=== PATIENT | male | born 1945 | race Caucasian/White ===

== ENCOUNTER → 2017-09-16 14:55 | Outpatient (CLI) | payer MEDICARE, BC, SELFPAY ==
--- NOTE | 2017-09-16 15:05 | CI_ITS ---
Cerebrovascular Exam Indications: 433.10 Occlusion/stenosis of carotid artery without cerebral infarction. IMPRESSIONS 1. The bilateral vertebral arteries are patent with normal antegrade flow. 2. Study suggests less than 20% stenosis involving the right internal carotid artery. 3. Study suggests 20-49% stenosis involving the left internal carotid artery. Carotid duplex study. Complete study and Doppler flow study including spectral analysis, color and fletcher scale imaging. Height: Height: 177.8cm. Height: 70in. Weight: Weight: 127kg. Weight: 279.4lb. Body mass index: BMI: 40.2kg/m^2. Body surface area: BSA: 2.56m^2. Location: Vascular laboratory. Patient status: Outpatient. Tables: Arterial flow: + +--------+--------+ Location V sys V ed + +--------+--------+ Right CCA - proximal 63.6cm/s 14.9cm/s + +--------+--------+ Right CCA - distal 88cm/s 19.6cm/s + +--------+--------+ Right ECA 131cm/s -------- + +--------+--------+ Right ICA - proximal 55cm/s 19.6cm/s + +--------+--------+ Right ICA - mid 73.1cm/s 22.8cm/s + +--------+--------+ Right ICA - distal 62.1cm/s 18.9cm/s + +--------+--------+ Right vertebral 40.1cm/s -------- + +--------+--------+ Left CCA - proximal 105cm/s 18.1cm/s + +--------+--------+ Left CCA - distal 84.1cm/s 18.9cm/s + +--------+--------+ Left ECA 110cm/s -------- + +--------+--------+ Left ICA - proximal 136cm/s 44.8cm/s + +--------+--------+ Left ICA - mid 145cm/s 38.5cm/s + +--------+--------+ Left ICA - distal 85.6cm/s 28.3cm/s + +--------+--------+ Left vertebral 72.3cm/s -------- + +--------+--------+ Velocity ratios: + + + + + + Right, V sys Right, V ed Left, V sys Left, V ed + + + + + + Max ICA/dist CCA 0.83 1.16 1.72 2.37 + + + + + + (Report amended ) Electronically signed by: Ashu Brewer [id number]
== END ==
PROVIDERS: PCP Family Medicine; Visit Provider Family Medicine
DX: I65.23 Occlusion and stenosis of bilateral carotid arteries (principal); R41.3 Other amnesia
CPT/HCPCS: 93880

== ENCOUNTER 2017-09-20 03:34 | Emergency (ER) | payer MEDICARE, BC, SELFPAY ==
[2017-09-20 03:37] VITALS: BP 103/64; PULSE 72; RESP 18; TEMP 36.9; O2SAT 95; BMI 40.1
--- NOTE | 2017-09-20 04:00 | XR_ITS ---
XR knee LT 3V HISTORY: Left knee pain ITS.REASON: pain ORDERING PHYSICIAN: Jim Monet MD PATIENT AGE: 71 years COMPARISON: None FINDINGS: There are moderate to severe osteoarthritic changes of the medial or and moderate osteoarthritis of the lateral compartment and patellofemoral joint. There is 4 mm lateral translation of the proximal tibia. No fracture or dislocation. No lytic or blastic change. There is some calcification in the suprapatellar region and the soft tissues nonspecific with possible suprapatellar effusion. IMPRESSION: Moderate to severe osteoarthritis with possible knee joint effusion
--- NOTE | 2017-09-20 04:02 | HMH.EDEXTP ---
ED Disposition Clinical Impression: Restless leg syndrome Left knee pain Qualifiers: Chronicity: chronic Qualified Code(s): M25.562 - Pain in left knee Disposition: Home, Self-Care Condition on Discharge: Good Instructions: DI for Knee Pain, DI for Restless Legs Syndrome Additional Instructions: Please continue to keep the left knee immobilized, and follow-up with the orthopedic surgeon (Dr. Redman) at your earliest convenience for additional outpatient workup. Referrals: Wayne Redman MD [Staff Physician] - Time of Disposition: 04:58 - Critical Care Critical Care Time: No Attestation: On 09/20/17, the high probability of a clinically significant, sudden or life threatening deterioration of the following system(s) required my full and direct attention, intervention and personal management. The time I documented below is in addition to time spent performing reported procedures but includes the following listed in this critical care notation. Medical Decision Making - Medical Records Medical records reviewed: Yes: I reviewed the patient's medical records. Vital Signs: 09/20/17 03:37 09/20/17 05:21 Temperature 98.5 F 98.7 F Temperature Source Oral Oral Pulse Rate 78 Pulse Rate [Left Radial] 72 Respiratory Rate 18 16 Blood Pressure 118/72 Blood Pressure [Right Arm] 103/64 Blood Pressure Mean [Right Arm] 77 Blood Pressure Source Manual Cuff/ Palpation Blood Pressure Source [Right Arm] Automatic Cuff Blood Pressure Position Supine Blood Pressure Position [Right Arm] Supine 02 Sat by Pulse Oximetry 95 Oxygen Delivery Method Room Air Room Air Orders (Tests/Meds): ED MEDICATIONS Discontinued Medications Generic Name Dose Route Start Last Admin Trade Name Freq PRN Reason Stop Dose Admin Hydromorphone HCl 1 mg 09/20/17 04:02 Dilaudid 2mg/Ml Syringe IM 09/20/17 04:03 ONCE ONE Lorazepam 1 mg 09/20/17 04:34 09/20/17 04:41 Ativan 2mg/Ml Vial IV 09/20/17 04:35 1 mg ONCE ONE Administration Morphine Sulfate 8 mg 09/20/17 04:09 09/20/17 04:14 Morphine 5mg/Ml Syringe IV 09/20/17 04:10 8 mg ONCE ONE Administration Ondansetron HCl 4 mg 09/20/17 04:02 Zofran 4mg/2ml Vial IM 09/20/17 04:03 ONCE ONE Ondansetron HCl 4 mg 09/20/17 04:12 09/20/17 04:14 Zofran 4mg/2ml Vial IV 09/20/17 04:13 4 mg ONCE ONE Administration Oxycodone/Acetaminophen 1 each 09/20/17 04:59 09/20/17 05:11 Percocet 10mg/325mg Tablet PO 09/20/17 05:00 1 each ONCE ONE Administration - Radiology Data #1 Image(s): Knee (left) Image Reviewed: Yes I reviewed the patient's radiology results, Yes I have reviewed radiologist's interpretation There are moderate to severe osteoarthritic changes of the medial or and moderate osteoarthritis of the lateral compartment and patellofemoral joint. There is 4 mm lateral translation of the proximal tibia. No fracture or dislocation. No lytic or blastic change. There is some calcification in the suprapatellar region and the soft tissues nonspecific with possible suprapatellar effusion. IMPRESSION: Moderate to severe osteoarthritis with possible knee joint effusion Dictated By: Ashu Brewer Signed By: <Electronically signed by Ashu Brewer in OV> 09/20/17 0521 - Samy Inquiry Pt receiving controlled substance: No - Reevaluation(s) Time: 04:45 Reevaluation #1: patient needs to follow up with policy specialist, given the small knee effusion. Extremity Problem HPI - General Chief complaint: Extremity Injury, Lower Stated complaint: left knee pain Mode of Arrival: EMS Limitations: No Limitations Description of Symptoms (Recalled from ER Triage Doc. by RN): left knee pain exacerbated by restless leg - History of Present Illness MD Complaint: extremity pain (chronic bilateral knee pain, worse on the left) Onset (ago): week(s) (2) Consistency: intermittent Location:
--- NOTE | 2017-09-20 04:16 | PC.NURSE ---
pt writhing and jerking intermittently all over the bed despite the knee pain report, it distractable and able to hold still when need.
[2017-09-20 05:21] VITALS: BP 118/72; PULSE 78; RESP 16; TEMP 37.1; O2SAT 97
== END 2017-09-20 05:25 | disposition home or self-care (01) ==
PROVIDERS: Emergency Provider Emergency Medicine
DX: G25.81 Restless legs syndrome (principal); M25.562 Pain in left knee; Z79.899 Other long term (current) drug therapy; E78.5 Hyperlipidemia, unspecified; Z96.651 Presence of right artificial knee joint; Z87.891 Personal history of nicotine dependence
CPT/HCPCS: 73562; 96374; 96375; 99281; 99291; J2405

== ENCOUNTER → 2017-09-27 12:16 | Outpatient (CLI) | payer MEDICARE, BC, SELFPAY ==
--- NOTE | 2017-09-27 12:22 | XR_ITS ---
XR ankle LT min 3V HISTORY: Left ankle pain ORDERING PHYSICIAN: Darren Dowd MD PATIENT AGE: 71 years COMPARISON: None FINDINGS: No fracture or dislocation. No lytic or blastic change. There is normal mineralization.. The joint spaces are well-preserved. No significant degenerative/arthritic changes. No erosive changes evident. Minimal hypertrophic changes are present at the distal aspect of the medial malleolus. IMPRESSION: No acute finding. Minimal degenerative change
--- NOTE | 2017-09-27 12:23 | CT_ITS ---
EXAM: CT LUNG LOW DOSE WO CONTRAST COMPARISON: None HISTORY: 71-year-old male with greater than 30 pack-year smoking history asymptomatic ORDERING PHYSICIAN: Darren Dowd MD PATIENT AGE: 71 years TECHNIQUE: The exam was performed on a GE Light Speed [address] scanner using 2.94 mGy CTDI. A low dose helical CT CHEST was performed on a multi-detector scanner The LDCT was performed in a facility that meets the criteria for the screening program. Data regarding this exam was submitted to ACR which is an approved registry. The order for this exam indicates that it came as a result of a lung cancer screening counseling shard decision-making visit that included all the elements required of such a visit including smoking cessation. The radiologist interpreting this exam meets the [facility] criteria for the LDCT lung cancer screening program. The exam is reported using the Lung-RADS classification scale and reported to the ACR registry. NOTE: This study was performed for the specific purposes of lung cancer screening and is not an alternative to diagnostic chest CT. RADIATION DOSE: CTDI vol(CT dose Index-volume) = 2.94mG DLP (Dose Length Product) = 102.83 mGcm FINDINGS: Study is somewhat limited due to patient's body habitus and low-dose technique. No suspicious nodules apparent. Incidental note is made of coronary artery calcification. No obvious mediastinal or hilar mass. Calcified node is present in the right hilum. IMPRESSION: 1. Lung RADS Category: 2, benign 2. Other findings: Coronary artery calcification RECOMMENDATIONS: Study is very limited secondary to patient body habitus and the low dose technique. If the patient develops symptoms then, a regular CT scan with regular technique would be indicated.
== END ==
PROVIDERS: PCP Family Medicine; Visit Provider Family Medicine
DX: M25.571 Pain in right ankle and joints of right foot (principal); Z87.891 Personal history of nicotine dependence; Z12.2 Encounter for screening for malignant neoplasm of respiratory organs
CPT/HCPCS: 73610

== ENCOUNTER → 2017-12-23 17:28 | Outpatient (REF) | payer MEDICARE, BC, SELFPAY | LOC: LAB 17:28 | PROVIDERS: Visit Provider Podiatrist | DX: B35.1 Tinea unguium (principal); M25.571 Pain in right ankle and joints of right foot; M25.572 Pain in left ankle and joints of left foot | CPT/HCPCS: 87102; 87206; 87220 ==

== ENCOUNTER → 2017-12-31 15:37 | Outpatient (CLI) | payer MEDICARE, BC, SELFPAY ==
[2017-12-31 15:58] LABS: Basophils % 0.4 % (0.1-2.0); Eosinophils # 0.2 K/mm3 (0.0-0.4); Eosinophils % 3.3 % (0.1-12.0); Hematocrit 42.4 % (42.0-52.0); Hemoglobin 14.8 g/dL (14.1-18.0); Lymphocytes % 27.3 K/mm3 (10-50); Mean Corpuscular HGB Conc 34.9 g/dL (31.8-35.4); Mean Corpuscular Hemoglobin 32.5 pg (27.0-31.2); Mean Platelet Volume 8.3 fl (7.4-10.4); Monocytes # 0.3 K/mm3 (0.1-1.0); Monocytes % 4.5 % (1.7-9.3); Neutrophils # 4.7 K/mm3 (1.8-7.8); Neutrophils % 64.5 % (37.0-80.0); Platelet Count 130 K/mm3 (142-424); Red Blood Count 4.55 M/mm3 (4.60-6.20); White Blood Count 7.3 K/mm3 (4.8-10.8)
[2017-12-31 17:28] LABS: Anion Gap 15.7 mEq/L (5-15); Blood Urea Nitrogen 25 mg/dL (7-18); Carbon Dioxide 26 mmol/L (21.0-32.0); Chloride 102 mmol/L (98-107); Creatinine,Serum 1.07 mg/dL (0.70-1.30); Estimated Glomerular Filt Rate 68 ml/min (>60); GFR (African American) 82 ML/MIN (>60); Glucose 159 mg/dL (74-106); Sodium 139 mmol/L (136-145)
[2017-12-31 17:31] LABS: Potassium 4.7 mmoL/L (3.5-5.1)
== END ==
PROVIDERS: Visit Provider Orthopaedic Surgery
DX: Z01.818 Encounter for other preprocedural examination (principal); G56.01 Carpal tunnel syndrome, right upper limb
CPT/HCPCS: 36415; 80048; 85025; 93005

== ENCOUNTER → 2018-02-03 10:51 | Outpatient (POV) | payer MEDICARE, BC, SELFPAY ==
[2018-02-03 11:03] VITALS: BP 155/65; PULSE 63; RESP 18; TEMP 36.4; O2SAT 96
--- NOTE | 2018-02-03 15:43 | HMH.PMCON ---
Assessment and Plan (1) CRPS (complex regional pain syndrome type I) Current visit: Yes Status: Chronic Category: Medical Code(s): G90.50 - Complex regional pain syndrome I, unspecified (2) Neuropathy Current visit: Yes Status: Chronic Category: Medical Code(s): G62.9 - Polyneuropathy, unspecified (3) Low back pain Current visit: Yes Status: Chronic Qualifiers: Chronicity: chronic Back pain laterality: midline Sciatica presence: with sciatica Sciatica laterality: bilateral sciatica Qualified Code(s): M54.41 - Lumbago with sciatica, right side; M54.42 - Lumbago with sciatica, left side; G89.29 - Other chronic pain Category: Medical Code(s): M54.5 - Low back pain - Assessment and plan all Dx Assessment and Plan for all problems:: Patient and I discussed neuro stimulation. I believe he would be a good candidate for DRG therapy along with potentially a burst lead placed for back pain. Patient is not a narcotic candidate given his respiratory status. Patient is uninterested in taking long-term narcotics. Patient's tried and failed physical therapy, anti-inflammatories, medications, injections. Patient and I discussed realistic goal setting with therapy. Patient and I discussed the trial and implantation process. Patient is interested in pursuing this. We will send the patient for psychological evaluation and then move forward with a trial. [facility] will get in touch with the patient to answer any questions the patient may have. This note was dictated using voice recognition software and may contain errors or omissions HPI - Data of Consult Consult date: 02/03/18 Requesting Physician: Carissa Robb APRN Primary Care Provider: Darren Dowd MD Family Provider: Referral Provider, - Consult Narrative Reason for consult: Left foot and low back pain History of present illness: Mr. Juilo is a 72 year old male who presents today for consultation in regards to his left foot and low back pain. Patient has had left foot surgery and has had pain ever since. He states that it is constant pain. Patient rates his pain a 5 out of 10 today. Patient also has low back pain. Is interested in interventional means of controlling his pain. Patient's tried and failed physical therapy. Patient has been seen by neurosurgery in the past was deemed a potential candidate for back surgery however he is not in a place that he would like to pursue this. Patient does have respiratory issues that require him to wear his CPAP. Patient is not a candidate for narcotic medications due to this. Patient also uninterested in taking long-term narcotic medications. Patient would like to discuss DRG stimulation for his left foot pain and potentially burst stimulation for his low back pain. Patient would like to return to work. Patient has tried and failed anti-inflammatories, medications. Patient also has a diagnosis of neuropathy. CC: Carissa Robb APRN [facility] History I have reviewed the patient's past medical history: Yes Medical History: Reports:: Hyperlipidemia Denies:: Cancer, Diabetes Mellitus Type 1, Diabetes Mellitus Type 2, MRSA, Seizures Other Medical History: Reports: Arthritis, Other. Denies: Blood Transfusion Reaction Laterality Cases: Right: Carpal Tunnel Release Other Surgeries: Yes: Other Amputation: Yes (left hand) Fractures: No - *Social History Educational Level: Completed High School Smoking Status: Former smoker Tobacco Type: cigarettes Alcohol Intake: never Alcohol Intake Frequency:: other Occupational Status: other Housing: house Household Members: spouse - Psychiatric History Expresses thoughts of harming self/others: None Suicide Plan Description: No Plan *Family Hx:: Diabetes, Hyperlipidemia, Hypertension Review of Systems - Review of Systems ROS General: no recent weight change, no fever, no sleep disturbances Respiratory: no cough, no shortness of a
--- NOTE | 2018-02-03 15:47 | P.CONS_ITS ---
Assessment and Plan (1) CRPS (complex regional pain syndrome type I) Current visit: Yes Status: Chronic Category: Medical Code(s): G90.50 - Complex regional pain syndrome I, unspecified (2) Neuropathy Current visit: Yes Status: Chronic Category: Medical Code(s): G62.9 - Polyneuropathy, unspecified (3) Low back pain Current visit: Yes Status: Chronic Qualifiers: Chronicity: chronic Back pain laterality: midline Sciatica presence: with sciatica Sciatica laterality: bilateral sciatica Qualified Code(s): M54.41 - Lumbago with sciatica, right side; M54.42 - Lumbago with sciatica, left side; G89.29 - Other chronic pain Category: Medical Code(s): M54.5 - Low back pain - Assessment and plan all Dx Assessment and Plan for all problems:: Patient and I discussed neuro stimulation. I believe he would be a good candidate for DRG therapy along with potentially a burst lead placed for back pain. Patient is not a narcotic candidate given his respiratory status. Patient is uninterested in taking long-term narcotics. Patient's tried and failed physical therapy, anti-inflammatories, medications, injections. Patient and I discussed realistic goal setting with therapy. Patient and I discussed the trial and implantation process. Patient is interested in pursuing this. We will send the patient for psychological evaluation and then move forward with a trial. [facility] will get in touch with the patient to answer any questions the patient may have. This note was dictated using voice recognition software and may contain errors or omissions HPI - Data of Consult Consult date: 02/03/18 Requesting Physician: Carissa Robb APRN Primary Care Provider: Darren Dowd MD Family Provider: Referral Provider, - Consult Narrative Reason for consult: Left foot and low back pain History of present illness: Mr. Julio is a 72 year old male who presents today for consultation in regards to his left foot and low back pain. Patient has had left foot surgery and has had pain ever since. He states that it is constant pain. Patient rates his pain a 5 out of 10 today. Patient also has low back pain. Is interested in interventional means of controlling his pain. Patient's tried and failed physical therapy. Patient has been seen by neurosurgery in the past was deemed a potential candidate for back surgery however he is not in a place that he would like to pursue this. Patient does have respiratory issues that require him to wear his CPAP. Patient is not a candidate for narcotic medications due to this. Patient also uninterested in taking long-term narcotic medications. Patient would like to discuss DRG stimulation for his left foot pain and potentially burst stimulation for his low back pain. Patient would like to return to work. Patient has tried and failed anti- inflammatories, medications. Patient also has a diagnosis of neuropathy. CC: Carissa Robb APRN [facility] History I have reviewed the patient's past medical history: Yes Medical History: Reports:: Hyperlipidemia Denies:: Cancer, Diabetes Mellitus Type 1, Diabetes Mellitus Type 2, MRSA, Seizures Other Medical History: Reports: Arthritis, Other. Denies: Blood Transfusion Reaction Laterality Cases: Right: Carpal Tunnel Release Other Surgeries: Yes: Other Amputation: Yes (left hand) Fractures: No - *Social History Educational Level: Completed High School Smoking Status: Former smoker Tobacco Type: cigarettes Alcohol Intake: never Alcohol Intake Frequency:: other Occupational Status: other Housing: hous
== END ==
PROVIDERS: PCP Family Medicine; Visit Provider Clinical Nurse Specialist Family Health
DX: G62.9 Polyneuropathy, unspecified (principal); G89.29 Other chronic pain
CPT/HCPCS: 99202

== ENCOUNTER → 2018-03-17 14:32 | Outpatient (POV) | payer MEDICARE, BC, SELFPAY ==
[2018-03-17 14:47] VITALS: BP 110/70; PULSE 68; RESP 18; O2SAT 98; BMI 41.5
--- NOTE | 2018-03-17 15:53 | HMH.PAINSOAP ---
[facility] Pain Management SOAP Note Subjective:: patient is a pleasant 72-year-old white male who presents today for follow-up after neurostimulator trial. Patient is doing extremely well he states during his trial he had up to 90% pain relief. Patient states he was much more functional. Patient got coverage all the way to his feet. Patient had to [place] burst stimulator leads placed at T7-T8-T9. The sites where the leads were placed have no sign symptoms of infection. Patient states that pain during his stimulator trial was 2 out of 10. ROS General: no recent weight change, no fever, no sleep disturbances Respiratory: no cough, no shortness of air, no recurring pulmonary infections Cardiovascular/Peripheral Vascular: No chest pain, No palpitations, no edema, no shortness of breath. Gastrointestinal: no incontinence, normal bowel movements reported Genitourinary: no incontinence Musculoskeletal: Bilateral leg pain Psychiatric: normal mood/ affect Neurological: [denies weakness in extremities], [denies balance issues] Objective:: Physical Exam General: Alert and oriented x3, no acute distress, pleasant and cooperative, [on room air] Lungs: Resps E/U, Symmetrical chest expansion, Eyes: PERRL Musculoskeletal: Flexion and extension of lumbar spine somewhat guarded secondary to pain, deep tendon reflexes normal, strength in upper and lower extremities [5/5], slightly antalgic gait noted Neurological: speech clear, shuffle board operator equal, no gross sensory deficits Assessment:: Degenerative disc disease lumbar spine with lumbar radiculopathy symptoms Plan:: We will plan a permanent neurostimulator implant for this patient. Patient did well with his trial. This trial was a success. Psychological evaluation will be reviewed. Patient is not on any anticoagulation therapy. This note was dictated using voice recognition software and may contain errors or omissions
--- NOTE | 2018-03-17 15:57 | P.CONS_ITS ---
[facility] Pain Management SOAP Note Subjective:: patient is a pleasant 72-year-old white male who presents today for follow-up after neurostimulator trial. Patient is doing extremely well he states during his trial he had up to 90% pain relief. Patient states he was much more functional. Patient got coverage all the way to his feet. Patient had to [place] burst stimulator leads placed at T7-T8-T9. The sites where the leads were placed have no sign symptoms of infection. Patient states that pain during his stimulator trial was 2 out of 10. ROS General: no recent weight change, no fever, no sleep disturbances Respiratory: no cough, no shortness of air, no recurring pulmonary infections Cardiovascular/Peripheral Vascular: No chest pain, No palpitations, no edema, no shortness of breath. Gastrointestinal: no incontinence, normal bowel movements reported Genitourinary: no incontinence Musculoskeletal: Bilateral leg pain Psychiatric: normal mood/ affect Neurological: [denies weakness in extremities], [denies balance issues] Objective:: Physical Exam General: Alert and oriented x3, no acute distress, pleasant and cooperative, [ on room air] Lungs: Resps E/U, Symmetrical chest expansion, Eyes: PERRL Musculoskeletal: Flexion and extension of lumbar spine somewhat guarded secondary to pain, deep tendon reflexes normal, strength in upper and lower extremities [5/5], slightly antalgic gait noted Neurological: speech clear, data analytics architect equal, no gross sensory deficits Assessment:: Degenerative disc disease lumbar spine with lumbar radiculopathy symptoms Plan:: We will plan a permanent neurostimulator implant for this patient. Patient did well with his trial. This trial was a success. Psychological evaluation will be reviewed. Patient is not on any anticoagulation therapy. This note was dictated using voice recognition software and may contain errors or omissions
== END ==
PROVIDERS: PCP Family Medicine; Visit Provider Clinical Nurse Specialist Family Health
DX: M51.16 Intervertebral disc disorders with radiculopathy, lumbar region (principal)
CPT/HCPCS: 99212

== ENCOUNTER → 2018-05-13 09:59 | Outpatient (POV) | payer MEDICARE, BC, SELFPAY ==
[2018-05-13 10:33] VITALS: BP 179/77; PULSE 61; RESP 18; O2SAT 98; BMI 42.2
--- NOTE | 2018-05-13 10:56 | HMH.PAINSOAP ---
[facility] Pain Management SOAP Note Subjective:: Patient is a pleasant 72-year-old white male who we are treating for low back pain with lumbar radiculopathy symptoms of bilateral foot pain. Patient has failed all previous conservative therapy including injections, physical therapy, medications. Patient is not a surgical candidate. Patient is following up after implantation of spinal cord stimulator. Patient is doing very well he rates his pain a 1 out of 10 he states he has 90% improvement in his symptoms. Patient stitches removed site clean dry healing no sign symptoms of infection. ROS General: no recent weight change, no fever, no sleep disturbances Respiratory: no cough, no shortness of air, no recurring pulmonary infections Cardiovascular/Peripheral Vascular: No chest pain, No palpitations, no edema, no shortness of breath. Gastrointestinal: no incontinence, normal bowel movements reported Genitourinary: no incontinence Musculoskeletal: Back pain, leg pain Psychiatric: normal mood/ affect Neurological: [denies weakness in extremities], [denies balance issues] Objective:: Physical Exam General: Alert and oriented x3, no acute distress, pleasant and cooperative, [on room air] Lungs: Resps E/U, Symmetrical chest expansion, Eyes: PERRL Musculoskeletal: Flexion and extension of lumbar spine somewhat guarded secondary to pain, deep tendon reflexes normal, strength in upper and lower extremities [5/5], slightly antalgic gait noted Neurological: speech clear, household assistant equal, no gross sensory deficits Assessment:: Degenerative disc disease lumbar spine radiculopathy symptoms of bilateral foot pain with CRPS Plan:: We will follow-up with the patient in 3 weeks just to reassess his symptoms at that time and after that we will follow-up with him in on an as-needed basis. Patient's been instructed to call the office if he has any issues prior to her next appointment. This note was dictated using voice recognition software and may contain errors or omissions
--- NOTE | 2018-05-13 10:59 | P.CONS_ITS ---
[facility] Pain Management SOAP Note Subjective:: Patient is a pleasant 72-year-old white male who we are treating for low back pain with lumbar radiculopathy symptoms of bilateral foot pain. Patient has failed all previous conservative therapy including injections, physical therapy, medications. Patient is not a surgical candidate. Patient is following up after implantation of spinal cord stimulator. Patient is doing very well he rates his pain a 1 out of 10 he states he has 90% improvement in his symptoms. Patient stitches removed site clean dry healing no sign symptoms of infection. ROS General: no recent weight change, no fever, no sleep disturbances Respiratory: no cough, no shortness of air, no recurring pulmonary infections Cardiovascular/Peripheral Vascular: No chest pain, No palpitations, no edema, no shortness of breath. Gastrointestinal: no incontinence, normal bowel movements reported Genitourinary: no incontinence Musculoskeletal: Back pain, leg pain Psychiatric: normal mood/ affect Neurological: [denies weakness in extremities], [denies balance issues] Objective:: Physical Exam General: Alert and oriented x3, no acute distress, pleasant and cooperative, [on room air] Lungs: Resps E/U, Symmetrical chest expansion, Eyes: PERRL Musculoskeletal: Flexion and extension of lumbar spine somewhat guarded secondary to pain, deep tendon reflexes normal, strength in upper and lower extremities [5/5], slightly antalgic gait noted Neurological: speech clear, container washer machine equal, no gross sensory deficits Assessment:: Degenerative disc disease lumbar spine radiculopathy symptoms of bilateral foot pain with CRPS Plan:: We will follow-up with the patient in 3 weeks just to reassess his symptoms at that time and after that we will follow-up with him in on an as-needed basis. Patient's been instructed to call the office if he has any issues prior to her next appointment. This note was dictated using voice recognition software and may contain errors or omissions
== END ==
PROVIDERS: PCP Family Medicine; Visit Provider Clinical Nurse Specialist Family Health
DX: M51.16 Intervertebral disc disorders with radiculopathy, lumbar region (principal); G90.523 Complex regional pain syndrome I of lower limb, bilateral
CPT/HCPCS: 99213

== ENCOUNTER 2018-05-23 19:05 | Inpatient (IN) ==
[2018-05-23 19:44] LABS: Basophils % 0.1 % (0.1-2.0); Eosinophils % 0.3 % (0.1-12.0); Hematocrit 35.6 % (42.0-52.0); Lymphocytes # 0.7 K/mm3 (0.7-4.5); Lymphocytes % 6.7 K/mm3 (10-50); Mean Corpuscular HGB Conc 33.7 g/dL (31.8-35.4); Mean Corpuscular Hemoglobin 32.7 pg (27.0-31.2); Mean Corpuscular Volume 97.1 fl (80-94); Mean Platelet Volume 8.2 fl (7.4-10.4); Monocytes # 0.5 K/mm3 (0.1-1.0); Monocytes % 4.5 % (1.7-9.3); Neutrophils # 9.3 K/mm3 (1.8-7.8); Neutrophils % 88.3 % (37.0-80.0); Platelet Count 102 K/mm3 (142-424); Red Blood Count 3.66 M/mm3 (4.60-6.20); Red Cell Distribution Width 13.2 % (11.5-17.5); White Blood Count 10.6 K/mm3 (4.8-10.8)
[2018-05-23 19:55] LABS: Lymphocytes % 5 % (10-50); Monocytes % 4 % (2-9); Neutrophils % 85 % (42-76); RBC Morphology Normal; Rouleaux 1+; Total Cells Counted 100; Toxic Granulation 1+
[2018-05-23 19:57] LABS: Albumin Level 3.3 gm/dL (3.4-5.0); Albumin/Globulin Ratio 0.9 (1.1-1.8); Anion Gap 11.3 mEq/L (5-15); Bilirubin,Total 0.7 mg/dL (0.2-1.0); Calcium 8.3 mg/dL (8.5-10.1); Globulin 3.8 gm/dl (1.3-3.2); Potassium 4.3 mmoL/L (3.5-5.1); Total Protein,Serum 7.1 gm/dL (6.4-8.2)
--- NOTE | 2018-05-23 20:28 | Emergency Department Note ---
ED Disposition Clinical Impression: Acute delirium, Febrile illness, acute Disposition: Admitted As Inpatient Condition on Discharge: Fair Referrals: Darren Dowd MD [Primary Care Provider] - - Critical Care Critical Care Time: No Attestation: On 05/23/18, the high probability of a clinically significant, sudden or life threatening deterioration of the following system(s) required my full and direct attention, intervention and personal management. The time I documented below is in addition to time spent performing reported procedures but includes the following listed in this critical care notation. Medical Decision Making - Medical Records Medical records reviewed: Yes: I reviewed the patient's medical records. - Samy Inquiry Pt receiving controlled substance: No Vital Signs: 05/23/18 19:09 05/23/18 20:17 05/23/18 21:30 Temperature 98.7 F 102.5 F H Temperature Source Oral Rectal Pulse Rate [Right Brachial] 74 90 Respiratory Rate 18 18 Blood Pressure [Right Arm] 132/60 115/56 L Blood Pressure Mean [Right Arm] 84 75 Blood Pressure Source [Right Arm] Automatic Cuff Automatic Cuff Blood Pressure Position [Right Arm] Sitting Supine 02 Sat by Pulse Oximetry 94 L 95 Oxygen Delivery Method Room Air Room Air 05/23/18 22:00 05/23/18 22:30 Temperature Temperature Source Pulse Rate [Right Brachial] 68 66 Respiratory Rate 18 18 Blood Pressure [Right Arm] 116/65 117/63 Blood Pressure Mean [Right Arm] 82 81 Blood Pressure Source [Right Arm] Automatic Cuff Automatic Cuff Blood Pressure Position [Right Arm] Supine Supine 02 Sat by Pulse Oximetry 94 L 94 L Oxygen Delivery Method Room Air Room Air - Lab Data Lab results reviewed: Yes: I reviewed the patient's lab results. Lab Results 05/23/18 19:25: WBC 10.6, RBC 3.66 L, Hgb 12.0 L, Hct 35.6 L, MCV 97.1 H, MCH 32.7 H, MCHC 33.7, RDW 13.2, Plt Count 102 L, MPV 8.2, Neut % (Auto) 88.3 H, Lymph % (Auto) 6.7 L, [place] % (Auto) 4.5, Eos % (Auto) 0.3, Baso % (Auto) 0.1, Neut # (Auto) 9.3 H, Lymph # (Auto) 0.7, [place] # (Auto) 0.5, Eos # (Auto) 0.0, Baso # (Auto) 0.0, Total Counted 100, Neutrophils % (Manual) 85 H, Band Ne utrophils % 6.0, Lymphocytes % (Manual) 5 L, Monocytes % (Manual) 4, Toxic Granulation 1+, Platelet Estimate Slight decrease, RBC Morphology Normal, Rouleaux 1+ 05/23/18 19:25: Sodium 131 L, Potassium 4.3, Chloride 98, Carbon Dioxide 26, Anion Gap 11.3, BUN 20 H, Creatinine 1.29, Estimated Creat Clear 88, Estimated GFR 55 L, Est GFR ( Amer) 66, Glucose 135 H, Calcium 8.3 L, Total Bilirubin 0.7, AST 19, ALT 28, Alkaline Phosphatase 108, Total Protein 7.1, Albumin 3.3 L, Globulin 3.8 H, Albumin/Globulin Ratio 0.9 L 05/23/18 19:25: Lactate 1.4 05/23/18 19:25: Troponin I < 0.02 05/23/18 19:25: ESR 48 H 05/23/18 19:25: C-Reactive Protein 14.6 H 05/23/18 20:33: Urine Color Yellow, Urine Appearance Clear, Urine pH 5.5, Ur Specific [place] 1.025, Urine Protein Trace, Urine Glucose (UA) Negative, Urine Ketones Negative, Urine Blood Trace-l, Urine Nitrate Negative, Urine Bilirubin Negative, Urine Urobilinogen 0.2, Ur Leukocyte Esterase Negative, Urine RBC 3-5, Urine WBC 3-5, Amorphous Sediment Trace Result diagrams: 05/23/18 19:25 05/23/18 19:25 Orders (Tests/Meds): ED MEDICATIONS Generic Name Dose Route Start Last Admin Trade Name Freq PRN Reason Stop Dose Admin Ceftriaxone Sodium 1 gm/ 50 mls @ 100 mls/hr 05/23/18 22:45 Sodium Chloride IV 06/06/18 22:44 Q24H MAGDI Protocol Vancomycin HCl 2,500 mg/ 500 mls @ 166.667 mls/hr 05/23/18 22:45 Sodium Chloride IV 06/06/18 22:44 Q24H MAGDI Discontinued Medications Generic Name Dose Route Start Last Admin Trade Name Freq PRN Reason Stop Dose Admin Acetaminophen 1,000 mg 05/23/18 20:17 05/23/18 20:21 Tylenol 500mg Tablet PO 05/23/18 20:18 1,000 mg ONCE ONE Administration Iopamidol 75 ml 05/23/18 21:26 05/23/18 21:26 [id number]; 75ml Vial IV 05/23/18 21:27 75 ml ONCE ONE Administration Protocol Sodium Chloride 10 ml 05/23/18 21:26 05/23/18 21:41 Rad-Saline Flush 10ml Syringe IV 05/23/18 21:27 10 ml ONCE ONE Administration ORDERS Category Date Time Status CT abdomen pelvis w con Stat Cat Scan 05/23/18 20:[address] head/brain wo con Stat Cat Scan 05/23/18 19:31 Taken Chest XR AP view [XR chest AP] Stat Exams 05/23/18 19:40 Taken Urinalysis and Microscopic Stat Lab 05/23/18 20:33 Ordered Blood Culture Stat Micro 05/23/18 19:25 Received - Radiology Data #1 Image(s): Chest Image Reviewed: Yes I reviewed the patient's radiology image Preliminary Findings: Abnormal (nonspecific) - CT Data CT Scan: Head, Abdomen, Pelvis Time Received: 22:[address] Reviewed: Yes: I have viewed the radiologist's interpretation Preliminary Findings: Abnormal (see report) - ECG Data Tracing #1 I reviewed this ECG and interpreted as documented below: Normal Sinus Rhythm: Yes Ischemic changes: non-specific ST-T wave changes - Physician Consults Physician Consulted: sound Reason -: Admission Additional Consult: bux Reason -: Pt condition Altered Mental Status HPI - General Chief Complaint: Weakness Stated Complaint: AMS Time Seen by Provider: 05/23/18 20:00 Mode of Arrival: EMS Source of Information: Patient, Relative, EMS, Medical Record Limitations: No Limitations Description of Symptoms (Recalled from ER Triage Doc. by RN): Per EMS report pt family states pt wasn't acting his normal earlier today, states pt family thought pt may have had a fever. Family states pt was seeing things that weren't there. Pt son reports "I was afraid he was going to start falling" Pt had a nerve stimulator placed in his back 3 weeks ago - History of Present Illness HPI narrative: today with confusion and no fall or cough and no rash with hx of recent spinal stimulator about 3 weeks ago - no abd pain MD complaint: altered mental status Onset (ago): day(s) Timing confirmed by: family member Severity: severe Consistency of symptoms: waxing and waning Associated symptoms: difficulty walking - Related Data Home Medications Medication Instructions Recorded Confirmed acetaminophen ER 650 mg 650 mg PO Q4HP PRN 08/15/17 05/23/18 tablet,extended release atorvastatin 10 mg tablet 10 mg PO DAILY 08/15/17 05/23/18 cetirizine 10 mg chewable tablet 1 tab PO DAILY tab 08/15/17 05/23/18 cholecalciferol (vitamin D3) 1,000 1,000 unit PO DAILY 08/15/17 05/23/18 unit capsule gabapentin 300 mg capsule 600 mg PO TID 08/15/17 05/23/18 magnesium 71.5 mg (magnesium 71.5 mg PO DAILY tab 08/15/17 05/23/18 chloride) tablet,delayed release melatonin 5 mg capsule 5 mg PO HS 08/15/17 05/23/18 meloxicam 15 mg tablet 15 mg PO HS 08/15/17 05/23/18 tamsulosin 0.4 mg capsule 0.4 mg PO DAILY 08/15/17 05/23/18 ropinirole 4 mg tablet 4 mg PO BID 30 Days #30 02/24/18 05/23/18 Duloxetine HCl [Cymbalta] 20 mg PO DAILY 04/30/18 05/23/18 Allergies Allergy/AdvReac Type Severity Reaction Status Date / Time No Known Allergies Allergy Verified 03/12/18 09:01 [facility] History I have reviewed the patient's past medical history: Yes Medical History: Reports:: BPH, Hyperlipidemia Denies:: Cancer, Diabetes Mellitus Type 1, Diabetes Mellitus Type 2, MRSA, Seizures Other Medical History: Reports: Arthritis, Other. Denies: Blood Transfusion Reaction Laterality Cases: Right: Carpal Tunnel Release Other Surgeries: Yes: Other Amputation: Yes (left hand) Fractures: No Comment: Reconstruction of his left hand following trauma - Social History Smoking Status: Former smoker Tobacco Type: cigarettes Alcohol Intake: never Alcohol Intake Frequency:: other Occupational Status: other Housing: house Household Members: spouse - Psychiatric History Expresses thoughts of harming self/others: None Suicide Plan Description: No Plan Family Hx:: Diabetes, Hyperlipidemia, Hypertension ROS Obtained: Yes All systems reviewed & no additional complaints - Constitutional Constitutional: Reports fever(s) - Eyes Eyes: Denies change in vision - ENT Ears, Nose, Mouth, and Throat: Denies sore throat - Cardiovascular Cardiovascular: Denies chest pain - Respiratory Respiratory: No cough - Gastrointestinal Gastrointestingal: Denies: abdominal pain, diarrhea, nausea, vomiting - Genitourinary Male Genitourinary: Denies hematuria - Musculoskeletal Musculoskeletal: Denies joint swelling, Denies neck pain - Integumentary/Breasts Skin/Breast: Denies rash - Neurologic Neurologic: Reports as per HPI, Reports confusion, Denies headache(s), Denies numbness, Denies seizure-like activity Physical Exam - General General appearance: alert, in no apparent distress, obese - Head Head exam: normocephalic - Eye Eye exam: Present: PERRL, EOMI. Absent: scleral icterus - ENT ENT exam: Present: mucous membranes dry - Neck Neck exam: Present: trachea midline - Respiratory Respiratory exam: Present: other (rhonchi bilat ). Absent: respiratory distress - Cardiovascular Cardiovascular exam: Present: regular rate, systolic murmur, +S4 - Abdominal Exam Abdominal exam: Present: soft - Extremities Exam Extremities exam: Absent: joint swelling, calf tenderness - Back Exam Back exam: Present: other (reddness at vertical suture line and no tenderness pouch site ) - Neurological Exam Neurological exam: Present: alert, CN II-XII intact, other (no meningeal parmar es ). Absent: oriented X3, motor sensory deficit - Psychiatric Psychiatric exam: Present: normal affect - Skin Skin exam: Absent: rash
[2018-05-23 20:38] LABS: Microscopic, Urine URINE MICROSCOPIC (MICROSCOPIC)
[2018-05-23 20:52] LABS: Appearance,Urine CLEAR (Clear); Bilirubin,Urine Negative (Negative); Blood, Urine TRACE-L (Negative); Color,Urine YELLOW (Yellow); Glucose,Urine (UA) Negative (Negative); Ketones,Urine Negative (Negative); Leukocyte Esterase,Urine Negative (Negative); PH,Urine 5.5 (5.0-8.5); Protein,Urine TRACE (Negative); Specific Gravity, Urine 1.025 (1.005-1.030); Urobilinogen,Urine 0.2 EU/dl (0.2)
[2018-05-23 20:57] LABS: Amorphous Sediment,Urine Trace /lpf
[2018-05-24 06:53] LABS: Basophils % 0.2 % (0.1-2.0); Eosinophils # 0.1 K/mm3 (0.0-0.4); Eosinophils % 0.8 % (0.1-12.0); Hematocrit 34.1 % (42.0-52.0); Hemoglobin 11.4 g/dL (14.1-18.0); Lymphocytes # 0.8 K/mm3 (0.7-4.5); Lymphocytes % 7.2 K/mm3 (10-50); Mean Corpuscular HGB Conc 33.6 g/dL (31.8-35.4); Mean Corpuscular Hemoglobin 32.8 pg (27.0-31.2); Mean Corpuscular Volume 97.6 fl (80-94); Monocytes # 0.5 K/mm3 (0.1-1.0); Monocytes % 4.9 % (1.7-9.3); Neutrophils # 9.5 K/mm3 (1.8-7.8); Neutrophils % 86.9 % (37.0-80.0); Platelet Count 95 K/mm3 (142-424); Red Blood Count 3.49 M/mm3 (4.60-6.20); Red Cell Distribution Width 13.1 % (11.5-17.5)
[2018-05-24 07:00] LABS: Calcium 8.1 mg/dL (8.5-10.1)
[2018-05-24 07:49] LABS: Lymphocytes % 5 % (10-50); Monocytes % 4 % (2-9); Neutrophils % 89 % (42-76); Total Cells Counted 100
--- NOTE | 2018-05-24 10:56 | Pharmacy Consult Notes ---
[facility] Pharmacy VTE Monitoring - Patient Demographics Admission date: 05/23/18 Report Date: 05/24/18 Time: 10:56 Allergies/Adverse Reactions: Patient Allergies No Known Allergies Allergy (Verified 05/23/18 23:16) Height: 1.78 m Weight: 133.98 kg Patient Problems: Current Active Problems Acute delirium (Acute) Febrile illness, acute (Acute) - VTE Risk Labs: VTE Related Lab Results Hgb 11.4 g/dL (14.1-18.0) L 05/24/18 06:20 Hct 34.1 % (42.0-52.0) L 05/24/18 06:20 Plt Count 95 K/mm3 (142-424) L 05/24/18 06:20 BUN 17 mg/dL (7-18) 05/24/18 06:20 Creatinine 1.25 mg/dL (0.70-1.30) 05/24/18 06:20 Estimated Creat Clear 54 mL/min (0-300) 05/24/18 06:20 VTE Score: 3 VTE Risk Level: Low Risk - Prophylaxis VTE Prophylaxis Ordered?: Yes Types of VTE Prophylaxis: TEDS Knee High Location of Applied Device: Bilateral Lower Extremeties
--- NOTE | 2018-05-24 11:03 | History & Physical Report ---
*Admission Date: 05/23/18 *Chief complaint: altered mental status and uncontrolled pain *History of present illness: Patient presented to the ER with uncontrollable pain and was not having any relief from the spinal stimulator that was put on by Dr. Lowry about a month ago. He was having mild cough but nothing major. Family reports at times he is not making sense of what he says. He was admitted to our facility for delirium. All the workup, done in ER was negative. Overnight, patient was having multiple delirious episodes due to uncontrolled pain. [facility] History Medical History: Reports:: BPH, Hyperlipidemia Denies:: Cancer, Diabetes Mellitus Type 1, Diabetes Mellitus Type 2, MRSA, Seizures Other Medical History: Reports: Arthritis, Other. Denies: Blood Transfusion Reaction Laterality Cases: Right: Carpal Tunnel Release Other Surgeries: Yes: Other Amputation: Yes (left hand) Fractures: No - *Social History Educational Level: Completed Grade School Smoking Status: Former smoker Tobacco Type: cigarettes #Yrs smoked (if former smoker): 10 Smoking End Date: 26 years ago Alcohol Intake: never Alcohol Intake Frequency:: other Occupational Status: retired, disabled Housing: house Household Members: spouse - Psychiatric History Expresses thoughts of harming self/others: None Suicide Plan Description: No Plan *Family Hx:: Diabetes, Hyperlipidemia, Hypertension Review of Systems - Constitutional Reports lack of energy - Eyes Denies blurry vision, Denies change in vision - ENT Denies abnormal hearing - *Cardiovascular Denies chest pain, Denies chest pain at rest, Denies shortness of breath, Denies lightheadedness - *Respiratory Reports cough (mild), Denies change in phlegm color, Denies chest congestion - *Gastrointestinal Denies abdominal pain - *Genitourinary Denies difficulty urinating - *Musculoskeletal Reports back pain, Denies abnormal walking - Integumentary/Breasts Denies acne, Denies hair loss - *Neurologic Reports confusion, Denies headache(s), Denies numbness, Denies seizure-like activity Meds Home Medications Medication Instructions Recorded Confirmed Type acetaminophen ER 650 mg 650 mg PO Q4HP PRN 08/15/17 05/23/18 History tablet,extended release atorvastatin 10 mg tablet 10 mg PO HS 08/15/17 05/24/18 History cetirizine 10 mg chewable tablet 1 tab PO HS tab 08/15/17 05/23/18 History cholecalciferol (vitamin D3) 1,000 1,000 unit PO DAILY 08/15/17 05/23/18 History unit capsule gabapentin 300 mg capsule 600 mg PO TID 08/15/17 05/23/18 History magnesium 71.5 mg (magnesium 71.5 mg PO DAILY tab 08/15/17 05/23/18 History chloride) tablet,delayed release melatonin 5 mg capsule 10 mg PO HS 08/15/17 05/23/18 History meloxicam 15 mg tablet 15 mg PO HS 08/15/17 05/23/18 History ropinirole 4 mg tablet 4 mg PO BID 30 Days #30 02/24/18 05/23/18 History Duloxetine HCl [Cymbalta] 60 mg PO DAILY 04/30/18 05/24/18 History Tamsulosin HCl [Flomax 0.4mg 0.4 mg PO HS 05/24/18 05/24/18 History capsule] Allergies Allergy/AdvReac Type Severity Reaction Status Date / Time No Known Allergies Allergy Verified 05/23/18 23:16 Exam Vital signs and Labs for Last 24 Hours: Temp Pulse Resp BP Pulse Ox 99.3 F 71 20 144/65 H 100 05/24/18 08:00 05/24/18 10:03 05/24/18 10:03 05/24/18 08:00 05/24/18 10:03 Laboratory Results - last 24 hr 05/23/18 19:25: WBC 10.6, RBC 3.66 L, Hgb 12.0 L, Hct 35.6 L, MCV 97.1 H, MCH 32.7 H, MCHC 33.7, RDW 13.2, Plt Count 102 L, MPV 8.2, Neut % (Auto) 88.3 H, Lymph % (Auto) 6.7 L, [place] % (Auto) 4.5, Eos % (Auto) 0.3, Baso % (Auto) 0.1, Neut # (Auto) 9.3 H, Lymph # (Auto) 0.7, [place] # (Auto) 0.5, Eos # (Auto) 0.0, Baso # (Auto) 0.0, Total Counted 100, Neutrophils % (Manual) 85 H, Band Neutrophils % 6.0, Lymphocytes % (Manual) 5 L, Monocytes % (Manual) 4, Toxic Granulation 1+, Platelet Estimate Slight decrease, RBC Morphology Normal, Roule aux 1+ 05/23/18 19:25: Sodium 131 L, Potassium 4.3, Chloride 98, Carbon Dioxide 26, Anion Gap 11.3, BUN 20 H, Creatinine 1.29, Estimated Creat Clear 88, Estimated GFR 55 L, Est GFR ( Amer) 66, Glucose 135 H, Calcium 8.3 L, Total Bilirubin 0.7, AST 19, ALT 28, Alkaline Phosphatase 108, Total Protein 7.1, Albumin 3.3 L, Globulin 3.8 H, Albumin/Globulin Ratio 0.9 L 05/23/18 19:25: Lactate 1.4 05/23/18 19:25: Troponin I < 0.02 05/23/18 19:25: ESR 48 H 05/23/18 19:25: C-Reactive Protein 14.6 H 05/23/18 20:33: Urine Color Yellow, Urine Appearance Clear, Urine pH 5.5, Ur Specific [place] 1.025, Urine Protein Trace, Urine Glucose (UA) Negative, Urine Ketones Negative, Urine Blood Trace-l, Urine Nitrate Negative, Urine Bilirubin Negative, Urine Urobilinogen 0.2, Ur Leukocyte Esterase Negative, Urine RBC 3-5, Urine WBC 3-5, Amorphous Sediment Trace 05/24/18 06:20: WBC 11.0 H, RBC 3.49 L, Hgb 11.4 L, Hct 34.1 L, MCV 97.6 H, MCH 32.8 H, MCHC 33.6, RDW 13.1, Plt Count 95 L, MPV 8.0, Neut % (Auto) 86.9 H, Lymph % (Auto) 7.2 L, [place] % (Auto) 4.9, Eos % (Auto) 0.8, Baso % (Auto) 0.2, Neut # (Auto) 9.5 H, Lymph # (Auto) 0.8, [place] # (Auto) 0.5, Eos # (Auto) 0.1, Baso # (Auto) 0.0, Total Counted 100, Neutrophils % (Manual) 89 H, Band Neutrophils % 2.0, Lymphocytes % (Manual) 5 L, Monocytes % (Manual) 4, Platelet Estimate Moderate decrease 05/24/18 06:20: Sodium 134 L, Potassium 4.0, Chloride 99, Carbon Dioxide 25, Anion Gap 14.0, BUN 17, Creatinine 1.25, Estimated Creat Clear 54, Estimated GFR 57 L, Est GFR ( Amer) 69, Glucose 144 H, Calcium 8.1 L I & O for Last 24 hours: Intake & Output 05/21/18 05/22/18 05/23/18 05/24/18 11:59 11:59 11:59 11:59 Intake Total 855 / 855 Output Total 600 / 600 Balance 255 / 255 Weight 295 lb 6 oz - *Routine HEENT Exam Head: Present: normocephalic Eye: Present: EOMI ENT: Present: mucous membranes moist - *Routine Neck Exam Present: supple - Routine Chest/Breast/Axilla Exam Chest wall: Absent: tenderness - *Routine Respiratory Exam Present: CTA bilaterally. Absent: accessory muscle use - *Routine Cardiovascular Exam Present: RRR - *Routine Abdominal Exam Present: soft, normoactive bowel sounds - *Routine Extremities Exam Absent: cyanosis, edema - Routine Back/Spine/Pelvis Exam Back/Spine: Present: paraspinal tenderness - *Routine Skin Exam Present: intact - *Routine Neurological Exam Present: alert, oriented X3, altered mental status (at times per nurses) Assessment and Plan (1) Acute delirium Current visit: Yes Status: Acute Category: Medical Code(s): R41.0 - Disorientation, unspecified (2) Febrile illness, acute Current visit: Yes Status: Acute Category: Medical Code(s): R50.9 - Fever, unspecified (3) Left knee pain Current visit: No Status: Acute Qualifiers: Chronicity: chronic Qualified Code(s): M25.562 - Pain in left knee; G89.29 - Other chronic pain Category: Medical Code(s): M25.562 - Pain in left knee (4) CRPS (complex regional pain syndrome type I) Current visit: No Status: Chronic Qualifiers: Complex regional pain syndrome affected site: unspecified Qualified Code(s): G90.50 - Complex regional pain syndrome I, unspecified Category: Medical Code(s): G90.50 - Complex regional pain syndrome I, unspecified (5) Low back pain Current visit: No Status: Chronic Qualifiers: Chronicity: chronic Back pain laterality: midline Sciatica presence: with sciatica Sciatica laterality: bilateral sciatica Qualified Code(s): M54.41 - Lumbago with sciatica, right side; M54.42 - Lumbago with sciatica, left side; G89.29 - Other chronic pain Category: Medical Code(s): M54.5 - Low back pain - Assessment and plan all Dx Assessment and Plan for all problems:: I called Dr. Lowry and discussed the case with him. He mentioned that the simulator was put on lumbar region and the leads go up to thoracic and sacral region. CT of lumbar region ordered to rule out abscess. IV pain meds ordered. Will reevaluate patient tomorrow and possibly transition to PO pain meds if needed.
--- NOTE | 2018-05-24 13:19 | Pharmacy Consult Notes ---
- Pharmacy Consult Date: 05/24/18 Time: 13:17 Referring provider: DR. CHEUNG Reason for Consult:: VANCOMYCIN DOSING Allergies and ADEs:: Allergies Allergy/AdvReac Type Severity Reaction Status Date / Time No Known Allergies Allergy Verified 05/23/18 23:16 Home Medications:: Home Medications Medication Instructions Recorded Confirmed Type acetaminophen ER 650 mg 650 mg PO Q4HP PRN 08/15/17 05/23/18 History tablet,extended release atorvastatin 10 mg tablet 10 mg PO HS 08/15/17 05/24/18 History cetirizine 10 mg chewable tablet 1 tab PO HS tab 08/15/17 05/23/18 History cholecalciferol (vitamin D3) 1,000 1,000 unit PO DAILY 08/15/17 05/23/18 History unit capsule gabapentin 300 mg capsule 600 mg PO TID 08/15/17 05/23/18 History magnesium 71.5 mg (magnesium 71.5 mg PO DAILY tab 08/15/17 05/23/18 History chloride) tablet,delayed release melatonin 5 mg capsule 10 mg PO HS 08/15/17 05/23/18 History meloxicam 15 mg tablet 15 mg PO HS 08/15/17 05/23/18 History ropinirole 4 mg tablet 4 mg PO BID 30 Days #30 02/24/18 05/23/18 History Duloxetine HCl [Cymbalta] 60 mg PO DAILY 04/30/18 05/24/18 History Tamsulosin HCl [Flomax 0.4mg 0.4 mg PO HS 05/24/18 05/24/18 History capsule] Height: 1.78 m Weight: 133.98 kg Laboratory Results:: Laboratory Results - last 24 hr 05/23/18 19:25: WBC 10.6, RBC 3.66 L, Hgb 12.0 L, Hct 35.6 L, MCV 97.1 H, MCH 32.7 H, MCHC 33.7, RDW 13.2, Plt Count 102 L, MPV 8.2, Neut % (Auto) 88.3 H, Lymph % (Auto) 6.7 L, [place] % (Auto) 4.5, Eos % (Auto) 0.3, Baso % (Auto) 0.1, Neut # (Auto) 9.3 H, Lymph # (Auto) 0.7, [place] # (Auto) 0.5, Eos # (Auto) 0.0, Baso # (Auto) 0.0, Total Counted 100, Neutrophils % (Manual) 85 H, Band Neutrophils % 6.0, Lymphocytes % (Manual) 5 L, Monocytes % (Manual) 4, Toxic Granulation 1+, Platelet Estimate Slight decrease, RBC Morphology Normal, Rouleaux 1+ 05/23/18 19:25: Sodium 131 L, Potassium 4.3, Chloride 98, Carbon Dioxide 26, Anion Gap 11.3, BUN 20 H, Creatinine 1.29, Estimated Creat Clear 88, Estimated GFR 55 L, Est GFR ( Amer) 66, Glucose 135 H, Calcium 8.3 L, Total Bilirubin 0.7, AST 19, ALT 28, Alkaline Phosphatase 108, Total Protein 7.1, Albumin 3.3 L, Globulin 3.8 H, Albumin/Globulin Ratio 0.9 L 05/23/18 19:25: Lactate 1.4 05/23/18 19:25: Troponin I < 0.02 05/23/18 19:25: ESR 48 H 05/23/18 19:25: C-Reactive Protein 14.6 H 05/23/18 20:33: Urine Color Yellow, Urine Appearance Clear, Urine pH 5.5, Ur Specific [place] 1.025, Urine Protein Trace, Urine Glucose (UA) Negative, Urine Ketones Negative, Urine Blood Trace-l, Urine Nitrate Negative, Urine Bilirubin Negative, Urine Urobilinogen 0.2, Ur Leukocyte Esterase Negative, Urine RBC 3-5, Urine WBC 3-5, Amorphous Sediment Trace 05/24/18 06:20: WBC 11.0 H, RBC 3.49 L, Hgb 11.4 L, Hct 34.1 L, MCV 97.6 H, MCH 32.8 H, MCHC 33.6, RDW 13.1, Plt Count 95 L, MPV 8.0, Neut % (Auto) 86.9 H, Lymph % (Auto) 7.2 L, [place] % (Auto) 4.9, Eos % (Auto) 0.8, Baso % (Auto) 0.2, Neut # (Auto) 9.5 H, Lymph # (Auto) 0.8, [place] # (Auto) 0.5, Eos # (Auto) 0.1, Baso # (Auto) 0.0, Total Counted 100, Neutrophils % (Manual) 89 H, Band Neutrophils % 2.0, Lymphocytes % (Manual) 5 L, Monocytes % (Manual) 4, Platelet Estimate Moderate decrease 05/24/18 06:20: Sodium 134 L, Potassium 4.0, Chloride 99, Carbon Dioxide 25, Anion Gap 14.0, BUN 17, Creatinine 1.25, Estimated Creat Clear 54, Estimated GFR 57 L, Est GFR ( Amer) 69, Glucose 144 H, Calcium 8.1 L Medical History: Reports:: BPH, Hyperlipidemia Denies:: Cancer, Diabetes Mellitus Type 1, Diabetes Mellitus Type 2, MRSA, Seizures Assessment and Plan (1) Acute delirium Current visit: Yes Status: Acute Category: Medical Code(s): R41.0 - Disorientation, unspecified (2) Febrile illness, acute Current visit: Yes Status: Acute Category: Medical Code(s): R50.9 - Fever, unspecified (3) Left knee pain Current visit: No Status: Acute Qualifiers: Chronicity: chronic Qualified Code(s): M25.562 - Pain in left knee; G89.29 - Other chronic pain Category: Medical Code(s): M25.562 - Pain in left knee (4) CRPS (complex regional pain syndrome type I) Current visit: No Status: Chronic Qualifiers: Complex regional pain syndrome affected site: unspecified Qualified Code(s): G90.50 - Complex regional pain syndrome I, unspecified Category: Medical Code(s): G90.50 - Complex regional pain syndrome I, unspecified (5) Low back pain Current visit: No Status: Chronic Qualifiers: Chronicity: chronic Back pain laterality: midline Sciatica presence: with sciatica Sciatica laterality: bilateral sciatica Qualified Code(s): M54.41 - Lumbago with sciatica, right side; M54.42 - Lumbago with sciatica, left side; G89.29 - Other chronic pain Category: Medical Code(s): M54.5 - Low back pain - Assessment and plan all Dx Assessment and Plan for all problems:: BASED ON PATIENT FACTORS, RECOMMEND VANCOMYCIN 2500 MG IV ONCE, FOLLOWED BY VANCOMYCIN 2250 MG IV Q18H. PHARMACY WILL FOLLOW DAILY AND ADJUST APPROPRIATE. VANCOMYCIN HAS BEEN DISCONTINUED BY DR CHEUNG.
--- NOTE | 2018-05-25 11:40 | Progress Note ---
Internal Medicine - PN: Subj *Date: 05/25/18 *Time: 09:30 Interval history: Overnight, patient's behavior was worse until he was given gabapentin and Atarax. He was started on IV morphine 1 mg every 4 hours as needed for pain after talking to Dr. Lowry. This morning he is still agitated and he is not making sense while he talks to me. He is pulling out his clothes and is not laying in bed still. Exam Vital signs and Labs for Last 24 Hours: Temp Pulse Resp BP Pulse Ox 102.8 F H 74 20 144/97 H 94 L 05/25/18 08:00 05/25/18 08:00 05/25/18 08:00 05/25/18 08:00 05/25/18 08:00 I & O for Last 24 hours: Intake & Output 05/22/18 05/23/18 05/24/18 05/25/18 11:59 11:59 11:59 11:59 Intake Total 855 / 855 600 / 600 Output Total 600 / 600 1400 / 1400 Balance 255 / 255 -800 / -800 Weight 295 lb 6 oz 295 lb 6 oz - *Routine HEENT Exam Head: Present: normocephalic Eye: Present: EOMI ENT: Present: mucous membranes moist - *Routine Neck Exam Present: supple - *Routine Respiratory Exam Present: CTA bilaterally - *Routine Cardiovascular Exam Present: RRR - *Routine Abdominal Exam Present: soft, normoactive bowel sounds - *Routine Extremities Exam Present: tenderness (Paraspinal lumbar region) - *Routine Skin Exam Present: intact - *Routine Neurological Exam Absent: alert, oriented X3 - Routine Psychiatric Exam Present: anxious, agitated, unable to assess. Absent: normal affect, normal thought process, cooperative, good insight, good judgment, depressed, manic Assessment and Plan (1) Acute delirium Current visit: Yes Status: Acute Category: Medical Code(s): R41.0 - Disorientation, unspecified (2) Febrile illness, acute Current visit: Yes Status: Acute Category: Medical Code(s): R50.9 - Fever, unspecified (3) Left knee pain Current visit: No Status: Acute Qualifiers: Chronicity: chronic Qualified Code(s): M25.562 - Pain in left knee; G89.29 - Other chronic pain Category: Medical Code(s): M25.562 - Pain in left knee (4) CRPS (complex regional pain syndrome type I) Current visit: No Status: Chronic Qualifiers: Complex regional pain syndrome affected site: unspecified Qualified Code(s ): G90.50 - Complex regional pain syndrome I, unspecified Category: Medical Code(s): G90.50 - Complex regional pain syndrome I, unspe cified (5) Low back pain Current visit: No Status: Chronic Qualifiers: Chronicity: chronic Back pain laterality: midline Sciatica presence: with sciatica Sciatica laterality: bilateral sciatica Qualified Code(s): M54.41 - Lumbago with sciatica, right side; M54.42 - Lumbago with sciatica, left side; G89.29 - Other chronic pain Category: Medical Code(s): M54.5 - Low back pain - Assessment and plan all Dx Assessment and Plan for all problems:: We will increase his gabapentin to 800 mg 3 times daily, start him on IV Ativan every 4 hours as needed for agitation, continue IV morphine every 4 hours for his pain, and continue home medications. We will do extensive delirium workup, might need LP tomorrow.
[2018-05-25 12:19] LABS: Basophils % 0.2 % (0.1-2.0); Eosinophils % 0.2 % (0.1-12.0); Hematocrit 34.9 % (42.0-52.0); Hemoglobin 11.4 g/dL (14.1-18.0); Lymphocytes % 10.5 K/mm3 (10-50); Mean Corpuscular HGB Conc 32.8 g/dL (31.8-35.4); Mean Corpuscular Hemoglobin 31.7 pg (27.0-31.2); Mean Corpuscular Volume 96.6 fl (80-94); Mean Platelet Volume 9.8 fl (7.4-10.4); Monocytes # 0.6 K/mm3 (0.1-1.0); Neutrophils # 8.2 K/mm3 (1.8-7.8); Neutrophils % 83.2 % (37.0-80.0); Platelet Count 105 K/mm3 (142-424); Red Blood Count 3.61 M/mm3 (4.60-6.20); Red Cell Distribution Width 12.9 % (11.5-17.5); White Blood Count 9.8 K/mm3 (4.8-10.8)
[2018-05-25 12:41] LABS: Albumin/Globulin Ratio 0.8 (1.1-1.8); Anion Gap 12.8 mEq/L (5-15); Bilirubin,Total 0.8 mg/dL (0.2-1.0); Calcium 8.4 mg/dL (8.5-10.1); Potassium 3.8 mmoL/L (3.5-5.1); Thyroid Stimulating Hormone 1.98 uIU/ml (0.358-3.740)
[2018-05-25 13:25] LABS: ABG Base Excess 1.6 mmol/L (-2.4-2.3); ABG HCO3 24.3 mmhg (22.0-26.0); ABG Oxygen Saturation 92 % (90-100); ABG PH 7.53 mmol/L (7.35-7.45); ABG PO2 61.1 mmhg (80-100); ABG TCO2 25.3 mmhg (23-27)
[2018-05-25 13:26] LABS: Allen's Test Acceptable; Oxygen 21 %
[2018-05-25 14:04] LABS: Microscopic, Urine URINE MICROSCOPIC (MICROSCOPIC)
[2018-05-25 14:09] LABS: Appearance,Urine CLEAR (Clear); Bilirubin,Urine Negative (Negative); Blood, Urine TRACE-I (Negative); Color,Urine YELLOW (Yellow); Glucose,Urine (UA) Negative (Negative); Ketones,Urine Negative (Negative); Leukocyte Esterase,Urine Negative (Negative); PH,Urine 5.5 (5.0-8.5); Protein,Urine Negative (Negative); Specific Gravity, Urine 1.025 (1.005-1.030); Urobilinogen,Urine 0.2 EU/dl (0.2)
[2018-05-25 14:16] LABS: Amphetamine/Metha Screen,Urine Negative ng/mL (<1000); Barbiturates Screen,Urine Negative ng/mL (<200); Benzodiazepines Screen,Urine Negative ng/mL (<200); Cannabinoid Screen,Urine Negative ng/mL (<50); Cocaine Screen,Urine Negative ng/mL (<300); Methadone Screen,Urine Negative ng/mL (<300); Opiate Screen,Urine Positive ng/mL (<300); Phencyclidine Screen,Urine Negative ng/mL (<25)
[2018-05-25 14:19] LABS: Bacteria,Urine 2+ /lpf; Squamous Epithelial Cell,Urine Occasional #/hpf (0-5); WBC,Urine Occasional #/hpf (0-3)
--- NOTE | 2018-05-26 08:39 | Progress Note ---
Internal Medicine - PN: Subj Interval history: Patient denies chest pain and shortness of breath. Otherwise he does not know exactly how he feels. He is not hungry. Per nurses he periodically yells out like he is in pain. Receiving morphine for pain. Receiving Ativan for agitation. Exam Vital signs and Labs for Last 24 Hours: Temp Pulse Resp BP Pulse Ox 98.9 F 75 20 139/69 98 05/26/18 04:00 05/26/18 04:00 05/26/18 04:00 05/26/18 04:00 05/26/18 04:00 Laboratory Results - last 24 hr 05/25/18 11:45: Specimen Source Rt radial, O2 % 21, ABG pH 7.53 H, ABG pCO2 30.0 L, ABG pO2 61.1 L, ABG HCO3 24.3, ABG Total CO2 25.3, ABG O2 Saturation 92, ABG Base Excess 1.6, Ashu Test Acceptable 05/25/18 12:12: WBC 9.8, RBC 3.61 L, Hgb 11.4 L, Hct 34.9 L, MCV 96.6 H, MCH 31.7 H, MCHC 32.8, RDW 12.9, Plt Count 105 L, MPV 9.8, Neut % (Auto) 83.2 H, Lymph % (Auto) 10.5, [place] % (Auto) 6.0, Eos % (Auto) 0.2, Baso % (Auto) 0.2, Neut # (Auto) 8.2 H, Lymph # (Auto) 1.0, [place] # (Auto) 0.6, Eos # (Auto) 0.0, Baso # (Auto) 0.0 05/25/18 12:12: Sodium 137, Potassium 3.8, Chloride 101, Carbon Dioxide 27, Anion Gap 12.8, BUN 17, Creatinine 1.25, Estimated Creat Clear 54, Estimated GFR 57 L, Est GFR ( Amer) 69, Glucose 127 H, Calcium 8.4 L, Total Bilirubin 0.8, AST 28 D, ALT 26, Alkaline Phosphatase 85, Total Protein 7.0, Albumin 3.0 L, Globulin 4.0 H, Albumin/Globulin Ratio 0.8 L, TSH 1.98 05/25/18 14:00: Urine Color Yellow, Urine Appearance Clear, Urine pH 5.5, Ur Specific [place] 1.025, Urine Protein Negative, Urine Glucose (UA) Negative, Urine Ketones Negative, Urine Blood Trace-i, Urine Nitrate Negative, Urine Bilirubin Negative, Urine Urobilinogen 0.2, Ur Leukocyte Esterase Negative, Urine WBC Occasional, Ur Squamous Epith Cells Occasional, Urine Bacteria 2+ 05/25/18 14:00: Urine Opiates Screen Positive H, Urine Methadone Screen Negative, Ur Barbituates Screen Negative, Ur Phencyclidine Scrn Negative, Ur Amphetamines Screen Negative, U Benzodiazepines Scrn Negative, Urine Cocaine Screen Negative, U Marijuana (THC) Screen Negative I & O for Last 24 hours: Intake & Output 05/23/18 05/24/18 05/25/18 05/26/18 11:59 11:59 11:59 11:59 Intake Total 855 / 855 600 / 600 699 / 699 Output Total 600 / 600 1400 / 1400 Balance 255 / 255 -800 / -800 699 / 699 Weight 295 lb 6 oz 295 lb 6 oz 291 lb 7 oz Microbiology Reports for the Last 24 Hours: Microbiology 05/23/18 19:25 Blood Blood Culture - Preliminary NO GROWTH AFTER 48 HOURS 05/23/18 19:25 Blood Blood Culture - Preliminary NO GROWTH AFTER 48 HOURS - Constitutional Comments: Lying in bed with depends on and otherwise has no close on. - *Routine Respiratory Exam Present: CTA bilaterally (Anteriorly and posteriorly) - *Routine Cardiovascular Exam Present: RRR - *Routine Abdominal Exam Present: soft, normoactive bowel sounds. Absent: tenderness - *Routine Extremities Exam Absent: edema, calf tenderness - *Routine Skin Exam Comments: Lower mid back with bruising - *Routine Neurological Exam Present: alert, altered mental status. Absent: oriented X3 Assessment and Plan (1) Acute delirium Current visit: Yes Status: Acute Category: Medical Code(s): R41.0 - Disorientation, unspecified (2) Febrile illness, acute Current visit: Yes Status: Acute Category: Medical Code(s): R50.9 - Fever, unspecified (3) Left knee pain Current visit: No Status: Acute Qualifiers: Chronicity: chronic Qualified Code(s): M25.562 - Pain in left knee; G89.29 - Other chronic pain Category: Medical Code(s): M25.562 - Pain in left knee (4) CRPS (complex regional pain syndrome type I) Current visit: No Status: Chronic Qualifiers: Complex regional pain syndrome affected site: unspecified Qualified Code(s): G90.50 - Complex regional pain syndrome I, unspecified Category: Medical Code(s): G90.50 - Complex regional pain syndrome I, unspecified (5) Low back pain Current visit: No Status: Chronic Qualifiers: Chronicity: chronic Back pain laterality: midline Sciatica presence: with sciatica Sciatica laterality: bilateral sciatica Qualified Code(s): M54.41 - Lumbago with sciatica, right side; M54.42 - Lumbago with sciatica, left side; G89.29 - Other chronic pain Category: Medical Code(s): M54.5 - Low back pain - Assessment and plan all Dx Assessment and Plan for all problems:: We will continue with antibiotics, IV fluids and management of delirium
--- NOTE | 2018-05-26 17:56 | Progress Note ---
Internal Medicine - PN: Subj *Date: 05/26/18 *Time: 17:53 Interval history: Nurse reports fever of 101.6 rectally as well as some redness around the pocket for the nerve stimulator in the low back. Discuss these issues with Dr. Chahal, he recommends resuming Vancomycin and he will have site evaluated tomorrow. Exam Vital signs and Labs for Last 24 Hours: Temp Pulse Resp BP Pulse Ox 101.6 F H 70 16 144/78 H 97 05/26/18 16:38 05/26/18 16:38 05/26/18 16:38 05/26/18 16:38 05/26/18 16:38 I & O for Last 24 hours: Intake & Output 05/24/18 05/25/18 05/26/18 05/27/18 11:59 11:59 11:59 11:59 Intake Total 855 / 855 600 / 600 699 / 699 Output Total 600 / 600 1400 / 1400 Balance 255 / 255 -800 / -800 699 / 699 Weight 295 lb 6 oz 295 lb 6 oz 291 lb 7 oz Microbiology Reports for the Last 24 Hours: Microbiology 05/25/18 14:00 Urine,Random Urine Culture - Preliminary NO GROWTH AFTER 24 HOURS 05/23/18 19:25 Blood Blood Culture - Preliminary NO GROWTH AFTER 48 HOURS 05/23/18 19:25 Blood Blood Culture - Preliminary NO GROWTH AFTER 48 HOURS Assessment and Plan (1) Acute delirium Current visit: Yes Status: Acute Category: Medical Code(s): R41.0 - Disorientation, unspecified (2) Febrile illness, acute Current visit: Yes Status: Acute Category: Medical Code(s): R50.9 - Fever, unspecified (3) Left knee pain Current visit: No Status: Acute Qualifiers: Chronicity: chronic Qualified Code(s): M25.562 - Pain in left knee; G89.29 - Other chronic pain Category: Medical Code(s): M25.562 - Pain in left knee (4) CRPS (complex regional pain syndrome type I) Current visit: No Status: Chronic Qualifiers: Complex regional pain syndrome affected site: unspecified Qualified Code(s): G90.50 - Complex regional pain syndrome I, unspecified Category: Medical Code(s): G90.50 - Complex regional pain syndrome I, unspecified (5) Low back pain Current visit: No Status: Chronic Qualifiers: Chronicity: chronic Back pain laterality: midline Sciatica presence: with sciatica Sciatica laterality: bilateral sciatica Qualified Code(s): M54.41 - Lumbago with sciatica, right side; M54.42 - Lumbago with sciatica, left side; G89.29 - Other chronic pain Category: Medical Code(s): M54.5 - Low back pain (6) Morbid obesity Current visit: Yes Status: Acute Category: Medical Code(s): E66.01 - Morbid (severe) obesity due to excess calories (7) Cellulitis of back [any part except buttock] Current visit: Yes Status: Acute Category: Medical Code(s): L03.312 - Cellulitis of back [any part except buttock] (8) Restless leg syndrome Current visit: No Status: Acute Category: Medical Code(s): G25.81 - Restless legs syndrome - Assessment and plan all Dx Assessment and Plan for all problems:: Restart Vancomycin now.
[2018-05-27 06:42] LABS: Basophils % 0.4 % (0.1-2.0); Eosinophils # 0.3 K/mm3 (0.0-0.4); Eosinophils % 4.3 % (0.1-12.0); Hemoglobin 11.3 g/dL (14.1-18.0); Lymphocytes # 0.9 K/mm3 (0.7-4.5); Lymphocytes % 11.1 K/mm3 (10-50); Mean Corpuscular HGB Conc 32.3 g/dL (31.8-35.4); Mean Corpuscular Hemoglobin 31.9 pg (27.0-31.2); Mean Corpuscular Volume 98.7 fl (80-94); Monocytes # 0.3 K/mm3 (0.1-1.0); Monocytes % 3.4 % (1.7-9.3); Neutrophils # 6.2 K/mm3 (1.8-7.8); Neutrophils % 80.7 % (37.0-80.0); Platelet Count 121 K/mm3 (142-424); Red Blood Count 3.55 M/mm3 (4.60-6.20); Red Cell Distribution Width 12.9 % (11.5-17.5); White Blood Count 7.7 K/mm3 (4.8-10.8)
[2018-05-27 06:58] LABS: Anion Gap 11.9 mEq/L (5-15); Calcium 8.4 mg/dL (8.5-10.1); Potassium 3.9 mmoL/L (3.5-5.1)
--- NOTE | 2018-05-27 08:07 | Progress Note ---
<Velia Brady - Last Filed: 05/27/18 08:15> Internal Medicine - PN: Subj *Date: 05/27/18 *Time: 08:16 Interval history: Patient is doing better. He has been out of bed to the bedside commode several times. He denies any pain and shortness of breath. He has been eating. Apparently he has had some difficulty with voiding and feels like he needs us to have stool. Nursing feels that he is doing better. He did have a fever yesterday with high of 101.6. He was up to bedside commode 3 times with a 2 person assist. They have noticed yellow drainage from his wound on his back. Exam Vital signs and Labs for Last 24 Hours: Temp Pulse Resp BP Pulse Ox 98.4 F 63 22 129/72 93 L 05/27/18 04:00 05/27/18 04:00 05/27/18 04:00 05/27/18 04:00 05/27/18 04:00 Laboratory Results - last 24 hr 05/27/18 06:19: WBC 7.7, RBC 3.55 L, Hgb 11.3 L, Hct 35.0 L, MCV 98.7 H, MCH 31.9 H, MCHC 32.3, RDW 12.9, Plt Count 121 L, MPV 9.0, Neut % (Auto) 80.7 H, Lymph % (Auto) 11.1, [place] % (Auto) 3.4, Eos % (Auto) 4.3, Baso % (Auto) 0.4, Neut # (Auto) 6.2, Lymph # (Auto) 0.9, [place] # (Auto) 0.3, Eos # (Auto) 0.3, Baso # (Auto) 0.0 05/27/18 06:19: Sodium 132 L, Potassium 3.9, Chloride 99, Carbon Dioxide 25, Anion Gap 11.9, BUN 22 H D, Creatinine 1.25, Estimated Creat Clear 54, Estimated GFR 57 L, Est GFR ( Amer) 69, Glucose 168 H, Calcium 8.4 L I & O for Last 24 hours: Intake & Output 05/24/18 05/25/18 05/26/18 05/27/18 11:59 11:59 11:59 11:59 Intake Total 855 / 855 600 / 600 699 / 699 Output Total 600 / 600 1400 / 1400 Balance 255 / 255 -800 / -800 699 / 699 Weight 295 lb 6 oz 295 lb 6 oz 291 lb 7 oz 300 lb 4 oz Microbiology Reports for the Last 24 Hours: Microbiology 05/25/18 14:00 Urine,Random Urine Culture - Preliminary NO GROWTH AFTER 24 HOURS - Constitutional no acute distress Comments: Patient is sitting on the bedside commode trying to void and feels like he needs to have a stool. He is also been trying to eat his breakfast. He denies any pain any place. He denies shortness of breath. - *Routine Respiratory Exam Comments: Few bibasilar crackles - *Routine Cardiovascular Exam Present: RRR - *Routine Abdominal Exam Present: normoactive bowel sounds Comments: Obese - *Routine Extremities Exam Present: edema (Bilateral lower legs) - *Routine Skin Exam Present: erythema, warm Comments: Erythema and warmth around postop wound. Dried drainage noted at wound site. - *Routine Neurological Exam Present: alert Assessment and Plan (1) Acute delirium Current visit: Yes Status: Acute Category: Medical Code(s): R41.0 - Disorientation, unspecified (2) Febrile illness, acute Current visit: Yes Status: Acute Category: Medical Code(s): R50.9 - Fever, unspecified (3) Left knee pain Current visit: No Status: Acute Qualifiers: Chronicity: chronic Qualified Code(s): M25.562 - Pain in left knee; G89.29 - Other chronic pain Category: Medical Code(s): M25.562 - Pain in left knee (4) CRPS (complex regional pain syndrome type I) Current visit: No Status: Chronic Qualifiers: Complex regional pain syndrome affected site: unspecified Qualified Code(s): G90.50 - Complex regional pain syndrome I, unspecified Category: Medical Code(s): G90.50 - Complex regional pain syndrome I, unspecified (5) Low back pain Current visit: No Status: Chronic Qualifiers: Chronicity: chronic Back pain laterality: midline Sciatica presence: with sciatica Sciatica laterality: bilateral sciatica Qualified Code(s): M54.41 - Lumbago with sciatica, right side; M54.42 - Lumbago with sciatica, left side; G89.29 - Other chronic pain Category: Medical Code(s): M54.5 - Low back pain (6) Morbid obesity Current visit: Yes Status: Acute Category: Medical Code(s): E66.01 - Morbid (severe) obesity due to excess calories (7) Cellulitis of back [any part except buttock] Current visit: Yes Status: Acute Category: Medical Code(s): L03.312 - Cellulitis of back [any part except buttock] (8) Restless leg syndrome Current visit: No Status: Acute Category: Medical Code(s): G25.81 - Restless legs syndrome - Assessment and plan all Dx Assessment and Plan for all problems:: Continue with IV antibiotics of Rocephin and vancomycin. Pain management to evaluate wound today. To encourage out of bed activity. Will need to monitor urinary output and stools. Blood and urine cultures negative thus far. White blood cell count is normal today. <Darren Dowd - Last Filed: 05/27/18 08:56> Exam Vital signs and Labs for Last 24 Hours: Temp Pulse Resp BP Pulse Ox 98.4 F 63 22 129/72 93 L 05/27/18 04:00 05/27/18 04:00 05/27/18 04:00 05/27/18 04:00 05/27/18 08:00 Laboratory Results - last 24 hr 05/27/18 06:19: WBC 7.7, RBC 3.55 L, Hgb 11.3 L, Hct 35.0 L, MCV 98.7 H, MCH 31.9 H, MCHC 32.3, RDW 12.9, Plt Count 121 L, MPV 9.0, Neut % (Auto) 80.7 H, Lymph % (Auto) 11.1, [place] % (Auto) 3.4, Eos % (Auto) 4.3, Baso % (Auto) 0.4, Neut # (Auto) 6.2, Lymph # (Auto) 0.9, [place] # (Auto) 0.3, Eos # (Auto) 0.3, Baso # (Auto) 0.0 05/27/18 06:19: Sodium 132 L, Potassium 3.9, Chloride 99, Carbon Dioxide 25, Anion Gap 11.9, BUN 22 H D, Creatinine 1.25, Estimated Creat Clear 54, Estimated GFR 57 L, Est GFR ( Amer) 69, Glucose 168 H, Calcium 8.4 L I & O for Last 24 hours: Intake & Output 05/24/18 05/25/18 05/26/18 05/27/18 11:59 11:59 11:59 11:59 Intake Total 855 / 855 600 / 600 699 / 699 Output Total 600 / 600 1400 / 1400 Balance 255 / 255 -800 / -800 699 / 699 Weight 295 lb 6 oz 295 lb 6 oz 291 lb 7 oz 300 lb 4 oz Microbiology Reports for the Last 24 Hours: Microbiology 05/25/18 14:00 Urine,Random Urine Culture - Preliminary NO GROWTH AFTER 24 HOURS Assessment and Plan (1) Acute delirium Current visit: Yes Status: Acute Category: Medical Code(s): R41.0 - Disorientation, unspecified (2) Febrile illness, acute Current visit: Yes Status: Acute Category: Medical Code(s): R50.9 - Fever, unspecified (3) Left knee pain Current visit: No Status: Acute Qualifiers: Chronicity: chronic Qualified Code(s): M25.562 - Pain in left knee; G89.29 - Other chronic pain Category: Medical Code(s): M25.562 - Pain in left knee (4) CRPS (complex regional pain syndrome type I) Current visit: No Status: Chronic Qualifiers: Complex regional pain syndrome affected site: unspecified Qualified Code(s): G90.50 - Complex regional pain syndrome I, unspecified Category: Medical Code(s): G90.50 - Complex regional pain syndrome I, unspecified (5) Low back pain Current visit: No Status: Chronic Qualifiers: Chronicity: chronic Back pain laterality: midline Sciatica presence: with sciatica Sciatica laterality: bilateral sciatica Qualified Code(s): M54.41 - Lumbago with sciatica, right side; M54.42 - Lumbago with sciatica, left side; G89.29 - Other chronic pain Category: Medical Code(s): M54.5 - Low back pain (6) Morbid obesity Current visit: Yes Status: Acute Category: Medical Code(s): E66.01 - Morbid (severe) obesity due to excess calories (7) Cellulitis of back [any part except buttock] Current visit: Yes Status: Acute Category: Medical Code(s): L03.312 - Cellulitis of back [any part except buttock] (8) Restless leg syndrome Current visit: No Status: Acute Category: Medical Code(s): G25.81 - Restless legs syndrome - Assessment and plan all Dx Assessment and Plan for all problems:: Saw patient, agree with above note.
--- NOTE | 2018-05-27 12:01 | Consult Report ---
[facility] Pain Management SOAP Note Subjective:: Patient is a pleasant 72-year-old white male who has been hospitalized for fever, altered mental status and infection. Patient had a neurostimulator implanted several weeks ago. Patient had stitches removed on 13 May with approximated wound edges, good healing, no redness noted, no drainage noted. Patient presented to the ER with altered mental status. Patient today alert and oriented x3. Patient site does have redness with a potential seroma. According to nursing there has been some drainage. I asked the nurses to culture any drainage. At this point after discussion with Dr. villanueva and Dr. Chahal we believe that continuing on with the antibiotic regimen. Also discussed possibility of pocket infection/cellulitis. Patient has a neurostimulator not intrathecal pain pump decreasing likelihood of larger complications with infected surgical pocket. At this point we feel he can be treated with antibiotics. We will check on the patient every day we are in the office until he is discharged. If anything new arises please feel free to contact our office.
--- NOTE | 2018-05-27 15:18 | Pharmacy Consult Notes ---
- Pharmacy Consult Date: 05/27/18 Time: 15:17 Referring provider: DR. BLACK/MARIA E Reason for Consult:: VANCOMYCIN DOSING Allergies and ADEs:: Allergies Allergy/AdvReac Type Severity Reaction Status Date / Time No Known Allergies Allergy Verified 05/23/18 23:16 Home Medications:: Home Medications Medication Instructions Recorded Confirmed Type acetaminophen ER 650 mg 650 mg PO Q4HP PRN 08/15/17 05/23/18 History tablet,extended release atorvastatin 10 mg tablet 10 mg PO HS 08/15/17 05/24/18 History cetirizine 10 mg chewable tablet 1 tab PO HS tab 08/15/17 05/23/18 History cholecalciferol (vitamin D3) 1,000 1,000 unit PO DAILY 08/15/17 05/23/18 History unit capsule gabapentin 300 mg capsule 600 mg PO TID 08/15/17 05/23/18 History magnesium 71.5 mg (magnesium 71.5 mg PO DAILY tab 08/15/17 05/23/18 History chloride) tablet,delayed release melatonin 5 mg capsule 10 mg PO HS 08/15/17 05/23/18 History meloxicam 15 mg tablet 15 mg PO HS 08/15/17 05/23/18 History ropinirole 4 mg tablet 4 mg PO BID 30 Days #30 02/24/18 05/23/18 History Duloxetine HCl [Cymbalta] 60 mg PO DAILY 04/30/18 05/24/18 History Tamsulosin HCl [Flomax 0.4mg 0.4 mg PO HS 05/24/18 05/24/18 History capsule] Height: 1.78 m Weight: 136.191 kg Laboratory Results:: Laboratory Results - last 24 hr 05/27/18 06:19: WBC 7.7, RBC 3.55 L, Hgb 11.3 L, Hct 35.0 L, MCV 98.7 H, MCH 31.9 H, MCHC 32.3, RDW 12.9, Plt Count 121 L, MPV 9.0, Neut % (Auto) 80.7 H, Lymph % (Auto) 11.1, Bacon % (Auto) 3.4, Eos % (Auto) 4.3, Baso % (Auto) 0.4, Neut # (Auto) 6.2, Lymph # (Auto) 0.9, [place] # (Auto) 0.3, Eos # (Auto) 0.3, Baso # (Auto) 0.0 05/27/18 06:19: Sodium 132 L, Potassium 3.9, Chloride 99, Carbon Dioxide 25, Anion Gap 11.9, BUN 22 H D, Creatinine 1.25, Estimated Creat Clear 54, Estimated GFR 57 L, Est GFR ( Amer) 69, Glucose 168 H, Calcium 8.4 L Medical History: Reports:: BPH, Hyperlipidemia Denies:: Cancer, Diabetes Mellitus Type 1, Diabetes Mellitus Type 2, MRSA, Seizures Assessment and Plan (1) Acute delirium Current visit: Yes Status: Acute Category: Medical Code(s): R41.0 - Disorientation, unspecified (2) Febrile illness, acute Current visit: Yes Status: Acute Category: Medical Code(s): R50.9 - Fever, unspecified (3) Left knee pain Current visit: No Status: Acute Qualifiers: Chronicity: chronic Qualified Code(s): M25.562 - Pain in left knee; G89.29 - Other chronic pain Category: Medical Code(s): M25.562 - Pain in left knee (4) CRPS (complex regional pain syndrome type I) Current visit: No Status: Chronic Qualifiers: Complex regional pain syndrome affected site: unspecified Qualified Code( s): G90.50 - Complex regional pain syndrome I, unspecified Category: Medical Code(s): G90.50 - Complex regional pain syndrome I, unsp ecified (5) Low back pain Current visit: No Status: Chronic Qualifiers: Chronicity: chronic Back pain laterality: midline Sciatica presence: with sciatica Sciatica laterality: bilateral sciatica Qualified Code(s): M54.41 - Lumbago with sciatica, right side; M54.42 - Lumbago with sciatica, left side; G89.29 - Other chronic pain Category: Medical Code(s): M54.5 - Low back pain (6) Morbid obesity Current visit: Yes Status: Acute Category: Medical Code(s): E66.01 - Morbid (severe) obesity due to excess calories (7) Cellulitis of back [any part except buttock] Current visit: Yes Status: Acute Category: Medical Code(s): L03.312 - Cellulitis of back [any part except buttock] (8) Restless leg syndrome Current visit: No Status: Acute Category: Medical Code(s): G25.81 - Restless legs syndrome - Assessment and plan all Dx Assessment and Plan for all problems:: BASED ON PATIENT FACTORS, RECOMMEND VANCOMYCIN 2500 MG IV ONCE, FOLLOWED BY VANCOMYCIN 2250 MG IV Q18H. PHARMACY WILL FOLLOW DAILY AND ADJUST APPROPRIATE.
--- NOTE | 2018-05-28 08:11 | Progress Note ---
<Leola Light - Last Filed: 05/28/18 08:08> Internal Medicine - PN: Subj *Date: 05/28/18 *Time: 08:08 Interval history: Nursing states that patient fell last night. They state he was found lying on his floor after trying to get out of bed. The patient does not remember any of this. He states his back is still hurting but no worse than it has been. He denies any other pain. He is still having great difficulty walking due to his back. He ate some of his breakfast this morning and is currently on the bedside commode trying to go to the bathroom. Exam Vital signs and Labs for Last 24 Hours: Temp Pulse Resp BP Pulse Ox 97.9 F 67 16 155/78 H 94 L 05/28/18 04:00 05/28/18 04:00 05/28/18 04:00 05/28/18 04:00 05/28/18 04:00 I & O for Last 24 hours: Intake & Output 05/25/18 05/26/18 05/27/18 05/28/18 11:59 11:59 11:59 11:59 Intake Total 600 / 600 699 / 699 3868 / 3868 Output Total 1400 / 1400 Balance -800 / -800 699 / 699 3868 / 3868 Weight 295 lb 6 oz 291 lb 7 oz 300 lb 4 oz 297 lb 6 oz Microbiology Reports for the Last 24 Hours: Microbiology 05/27/18 10:51 Back - Abscess Gram Stain - Final 05/27/18 10:51 Back - Abscess Wound Culture - Preliminary 05/25/18 14:00 Urine,Random Urine Culture - Final NO GROWTH AFTER 48 HOURS - Constitutional no acute distress - *Routine Respiratory Exam Present: rales (faint bibasilar rales). Absent: wheezes - *Routine Cardiovascular Exam Present: RRR - *Routine Abdominal Exam Present: soft, normoactive bowel sounds. Absent: tenderness - *Routine Extremities Exam Present: edema (bilateral LE's). Absent: cyanosis, clubbing - *Routine Skin Exam Comments: erythema, warmth, edema, and some dried drainage around the incision site on the low back Assessment and Plan (1) Acute delirium Current visit: Yes Status: Acute Category: Medical Code(s): R41.0 - Disorientation, unspecified (2) Febrile illness, acute Current visit: Yes Status: Acute Category: Medical Code(s): R50.9 - Fever, unspecified (3) Left knee pain Current visit: No Status: Acute Qualifiers: Chronicity: chronic Qualified Code(s): M25.562 - Pain in left knee; G89.29 - Other chronic pain Category: Medical Code(s): M25.562 - Pain in left knee (4) CRPS (complex regional pain syndrome type I) Current visit: No Status: Chronic Qualifiers: Complex regional pain syndrome affected site: unspecified Qualified Code(s): G90.50 - Complex regional pain syndrome I, unspecified Category: Medical Code(s): G90.50 - Complex regional pain syndrome I, unspecified (5) Low back pain Current visit: No Status: Chronic Qualifiers: Chronicity: chronic Back pain laterality: midline Sciatica presence: with sciatica Sciatica laterality: bilateral sciatica Qualified Code(s): M54.41 - Lumbago with sciatica, right side; M54.42 - Lumbago with sciatica, left side; G89.29 - Other chronic pain Category: Medical Code(s): M54.5 - Low back pain (6) Morbid obesity Current visit: Yes Status: Acute Category: Medical Code(s): E66.01 - Morbid (severe) obesity due to excess calories (7) Cellulitis of back [any part except buttock] Current visit: Yes Status: Acute Category: Medical Code(s): L03.312 - Cellulitis of back [any part except buttock] (8) Restless leg syndrome Current visit: No Status: Acute Category: Medical Code(s): G25.81 - Restless legs syndrome - Assessment and plan all Dx Assessment and Plan for all problems:: Pain management note reviewed. Patient does not appear to have injured anything during his fall. Will discuss further care with Dr. Dowd and see if he would like to get an x-ray of the back as this is the only thing that is hurting worse at this point. <Darren Dowd - Last Filed: 05/28/18 08:43> Exam Vital signs and Labs for Last 24 Hours: Temp Pulse Resp BP Pulse Ox 97.9 F 67 16 155/78 H 94 L 05/28/18 04:00 05/28/18 04:00 05/28/18 04:00 05/28/18 04:00 05/28/18 04:00 I & O for Last 24 hours: Intake & Output 05/25/18 05/26/18 05/27/18 05/28/18 11:59 11:59 11:59 11:59 Intake Total 600 / 600 699 / 699 3868 / 3868 Output Total 1400 / 1400 Balance -800 / -800 699 / 699 3868 / 3868 Weight 295 lb 6 oz 291 lb 7 oz 300 lb 4 oz 297 lb 6 oz Microbiology Reports for the Last 24 Hours: Microbiology 05/27/18 10:51 Back - Abscess Gram Stain - Final 05/27/18 10:51 Back - Abscess Wound Culture - Preliminary 05/25/18 14:00 Urine,Random Urine Culture - Final NO GROWTH AFTER 48 HOURS Assessment and Plan (1) Acute delirium Current visit: Yes Status: Acute Category: Medical Code(s): R41.0 - Disorientation, unspecified (2) Febrile illness, acute Current visit: Yes Status: Acute Category: Medical Code(s): R50.9 - Fever, unspecified (3) Left knee pain Current visit: No Status: Acute Qualifiers: Chronicity: chronic Qualified Code(s): M25.562 - Pain in left knee; G89.29 - Other chronic pain Category: Medical Code(s): M25.562 - Pain in left knee (4) CRPS (complex regional pain syndrome type I) Current visit: No Status: Chronic Qualifiers: Complex regional pain syndrome affected site: unspecified Qualified Code (s): G90.50 - Complex regional pain syndrome I, unspecified Category: Medical Code(s): G90.50 - Complex regional pain syndrome I, uns pecified (5) Low back pain Current visit: No Status: Chronic Qualifiers: Chronicity: chronic Back pain laterality: midline Sciatica presence: with sciatica Sciatica laterality: bilateral sciatica Qualified Code(s): M54.41 - Lumbago with sciatica, right side; M54.42 - Lumbago with sciatica, left side; G89.29 - Other chronic pain Category: Medical Code(s): M54.5 - Low back pain (6) Morbid obesity Current visit: Yes Status: Acute Category: Medical Code(s): E66.01 - Morbid (severe) obesity due to excess calories (7) Cellulitis of back [any part except buttock] Current visit: Yes Status: Acute Category: Medical Code(s): L03.312 - Cellulitis of back [any part except buttock] (8) Restless leg syndrome Current visit: No Status: Acute Category: Medical Code(s): G25.81 - Restless legs syndrome - Assessment and plan all Dx Assessment and Plan for all problems:: Saw patient, nursing notes reviewed, no mention of patient falling. He does not remember events of last night. He states he is not having any back pain at this time. Patient has refused to wear RAMO hose. Plan to start Lovenox for DVT prophylaxis. Pain management following. Continue same antibiotics. Continue fall precautions.
--- NOTE | 2018-05-28 10:57 | Progress Note ---
Internal Medicine - PN: Subj *Date: 05/28/18 *Time: 10:57 Exam Vital signs and Labs for Last 24 Hours: Temp Pulse Resp BP Pulse Ox 97.9 F 67 16 155/78 H 94 L 05/28/18 04:00 05/28/18 04:00 05/28/18 04:00 05/28/18 04:00 05/28/18 04:00 I & O for Last 24 hours: Intake & Output 05/25/18 05/26/18 05/27/18 05/28/18 23:59 23:59 23:59 23:59 Intake Total 130 / 130 689 / 689 4358 / 4358 669 / 669 Output Total 400 / 400 350 / 350 Balance -270 / -270 689 / 689 4008 / 4008 669 / 669 Weight 133.98 kg 132.194 kg 136.191 kg 134.887 kg Microbiology Reports for the Last 24 Hours: Microbiology 05/27/18 10:51 Back - Abscess Gram Stain - Final 05/27/18 10:51 Back - Abscess Wound Culture - Preliminary 05/25/18 14:00 Urine,Random Urine Culture - Final NO GROWTH AFTER 48 HOURS Assessment and Plan (1) Acute delirium Current visit: Yes Status: Acute Category: Medical Code(s): R41.0 - Disorientation, unspecified (2) Febrile illness, acute Current visit: Yes Status: Acute Category: Medical Code(s): R50.9 - Fever, unspecified (3) Left knee pain Current visit: No Status: Acute Qualifiers: Chronicity: chronic Qualified Code(s): M25.562 - Pain in left knee; G89.29 - Other chronic pain Category: Medical Code(s): M25.562 - Pain in left knee (4) CRPS (complex regional pain syndrome type I) Current visit: No Status: Chronic Qualifiers: Complex regional pain syndrome affected site: unspecified Qualified Code(s): G90.50 - Complex regional pain syndrome I, unspecified Category: Medical Code(s): G90.50 - Complex regional pain syndrome I, unspecified (5) Low back pain Current visit: No Status: Chronic Qualifiers: Chronicity: chronic Back pain laterality: midline Sciatica presence: with sciatica Sciatica laterality: bilateral sciatica Qualified Code(s): M54.41 - Lumbago with sciatica, right side; M54.42 - Lumbago with sciatica, left side; G89.29 - Other chronic pain Category: Medical Code(s): M54.5 - Low back pain (6) Morbid obesity Current visit: Yes Status: Acute Category: Medical Code(s): E66.01 - Morbid (severe) obesity due to excess calories (7) Cellulitis of back [any part except buttock] Current visit: Yes Status: Acute Category: Medical Code(s): L03.312 - Cellulitis of back [any part except buttock] (8) Restless leg syndrome Current visit: No Status: Acute Category: Medical Code(s): G25.81 - Restless legs syndrome The patient's infection will respond to the chosen ABx?: Yes Is the patient receiving the right drug, dose, and route?: Yes Could a more targeted ABx be ordered?: No
[2018-05-29 07:04] LABS: Basophils % 0.4 % (0.1-2.0); Eosinophils # 0.3 K/mm3 (0.0-0.4); Eosinophils % 5.3 % (0.1-12.0); Hematocrit 34.5 % (42.0-52.0); Hemoglobin 11.4 g/dL (14.1-18.0); Mean Corpuscular HGB Conc 33.2 g/dL (31.8-35.4); Mean Corpuscular Hemoglobin 32.3 pg (27.0-31.2); Mean Corpuscular Volume 97.3 fl (80-94); Mean Platelet Volume 8.5 fl (7.4-10.4); Monocytes # 0.3 K/mm3 (0.1-1.0); Monocytes % 4.9 % (1.7-9.3); Neutrophils # 4.7 K/mm3 (1.8-7.8); Neutrophils % 73.5 % (37.0-80.0); Platelet Count 161 K/mm3 (142-424); Red Blood Count 3.55 M/mm3 (4.60-6.20); White Blood Count 6.5 K/mm3 (4.8-10.8)
[2018-05-29 07:24] LABS: Anion Gap 13.4 mEq/L (5-15); Calcium 8.7 mg/dL (8.5-10.1); Potassium 4.4 mmoL/L (3.5-5.1)
--- NOTE | 2018-05-29 08:21 | Progress Note ---
<Leola Light - Last Filed: 05/29/18 08:17> Internal Medicine - PN: Subj *Date: 05/29/18 *Time: 08:18 Interval history: Patient states he is in severe pain today in his low back and both hips. He did have a fall yesterday and did not seem to have pain at that time, however today he says the pain is excruciating. He has had difficulty transferring even with 2-3 people helping him. He states he did not rest well last night due to the pain. Exam Vital signs and Labs for Last 24 Hours: Temp Pulse Resp BP Pulse Ox 98.0 F 64 18 152/61 H 95 05/29/18 04:00 05/29/18 04:00 05/29/18 04:00 05/29/18 04:00 05/29/18 04:00 Laboratory Results - last 24 hr 05/25/18 12:12: Vitamin B12 296 05/29/18 06:24: WBC 6.5, RBC 3.55 L, Hgb 11.4 L, Hct 34.5 L, MCV 97.3 H, MCH 32.3 H, MCHC 33.2, RDW 13.0, Plt Count 161 D, MPV 8.5, Neut % (Auto) 73.5, Lymph % (Auto) 16.0, [place] % (Auto) 4.9, Eos % (Auto) 5.3, Baso % (Auto) 0.4, Neut # (Auto) 4.7, Lymph # (Auto) 1.0, [place] # (Auto) 0.3, Eos # (Auto) 0.3, Baso # (Auto) 0.0 05/29/18 06:24: Sodium 138, Potassium 4.4, Chloride 99, Carbon Dioxide 30, Anion Gap 13.4, BUN 12 D, Creatinine 0.95 D, Estimated Creat Clear 68, Estimated GFR 78, Est GFR ( Amer) 94 D, Glucose 98, Calcium 8.7 I & O for Last 24 hours: Intake & Output 05/26/18 05/27/18 05/28/18 05/29/18 11:59 11:59 11:59 11:59 Intake Total 699 / 699 5027 / 5027 650 / 650 Output Total 350 / 350 Balance 699 / 699 4677 / 4677 650 / 650 Weight 291 lb 7 oz 300 lb 4 oz 297 lb 6 oz 296 lb 4 oz Microbiology Reports for the Last 24 Hours: Microbiology 05/23/18 19:25 Blood Blood Culture - Final NO GROWTH AFTER 5 DAYS 05/23/18 19:25 Blood Blood Culture - Final NO GROWTH AFTER 5 DAYS 05/27/18 10:51 Back - Abscess Gram Stain - Final 05/27/18 10:51 Back - Abscess Wound Culture - Preliminary - Constitutional no acute distress - *Routine Respiratory Exam Present: CTA bilaterally - *Routine Cardiovascular Exam Present: RRR - *Routine Abdominal Exam Present: soft, normoactive bowel sounds. Absent: tenderness - *Routine Extremities Exam Present: edema (trace bilaterally) Assessment and Plan (1) Acute delirium Current visit: Yes Status: Acute Category: Medical Code(s): R41.0 - Disorientation, unspecified (2) Febrile illness, acute Current visit: Yes Status: Acute Category: Medical Code(s): R50.9 - Fever, unspecified (3) Left knee pain Current visit: No Status: Acute Qualifiers: Chronicity: chronic Qualified Code(s): M25.562 - Pain in left knee; G89.29 - Other chronic pain Category: Medical Code(s): M25.562 - Pain in left knee (4) CRPS (complex regional pain syndrome type I) Current visit: No Status: Chronic Qualifiers: Complex regional pain syndrome affected site: unspecified Qualified Code(s): G90.50 - Complex regional pain syndrome I, unspecified Category: Medical Code(s): G90.50 - Complex regional pain syndrome I, unspecified (5) Low back pain Current visit: No Status: Chronic Qualifiers: Chronicity: chronic Back pain laterality: midline Sciatica presence: with sciatica Sciatica laterality: bilateral sciatica Qualified Code(s): M54.41 - Lumbago with sciatica, right side; M54.42 - Lumbago with sciatica, left side; G89.29 - Other chronic pain Category: Medical Code(s): M54.5 - Low back pain (6) Morbid obesity Current visit: Yes Status: Acute Category: Medical Code(s): E66.01 - Morbid (severe) obesity due to excess calories (7) Cellulitis of back [any part except buttock] Current visit: Yes Status: Acute Category: Medical Code(s): L03.312 - Cellulitis of back [any part except buttock] (8) Restless leg syndrome Current visit: No Status: Acute Category: Medical Code(s): G25.81 - Restless legs syndrome (9) Hip pain, bilateral Current visit: Yes Status: Acute Category: Medical Code(s): M25.551 - Pain in right hip; M25.552 - Pain in left hip - Assessment and plan all Dx Assessment and Plan for all problems:: Will get x-rays of the hips and low back today. <Darren Dowd - Last Filed: 05/29/18 08:47> Exam Vital signs and Labs for Last 24 Hours: Temp Pulse Resp BP Pulse Ox 98.6 F 58 L 19 124/71 91 L 05/29/18 08:00 05/29/18 08:00 05/29/18 08:00 05/29/18 08:00 05/29/18 08:00 Laboratory Results - last 24 hr 05/25/18 12:12: Vitamin B12 296 05/29/18 06:24: WBC 6.5, RBC 3.55 L, Hgb 11.4 L, Hct 34.5 L, MCV 97.3 H, MCH 32.3 H, MCHC 33.2, RDW 13.0, Plt Count 161 D, MPV 8.5, Neut % (Auto) 73.5, Lymph % (Auto) 16.0, [place] % (Auto) 4.9, Eos % (Auto) 5.3, Baso % (Auto) 0.4, Neut # (Auto) 4.7, Lymph # (Auto) 1.0, [place] # (Auto) 0.3, Eos # (Auto) 0.3, Baso # (Auto) 0.0 05/29/18 06:24: Sodium 138, Potassium 4.4, Chloride 99, Carbon Dioxide 30, Anion Gap 13.4, BUN 12 D, Creatinine 0.95 D, Estimated Creat Clear 68, Estimated GFR 78, Est GFR ( Amer) 94 D, Glucose 98, Calcium 8.7 I & O for Last 24 hours: Intake & Output 05/26/18 05/27/18 05/28/18 05/29/18 11:59 11:59 11:59 11:59 Intake Total 699 / 699 5027 / 5027 770 / 770 Output Total 350 / 350 Balance 699 / 699 4677 / 4677 770 / 770 Weight 291 lb 7 oz 300 lb 4 oz 297 lb 6 oz 296 lb 4 oz Microbiology Reports for the Last 24 Hours: Microbiology 05/23/18 19:25 Blood Blood Culture - Final NO GROWTH AFTER 5 DAYS 05/23/18 19:25 Blood Blood Culture - Final NO GROWTH AFTER 5 DAYS 05/27/18 10:51 Back - Abscess Gram Stain - Final 05/27/18 10:51 Back - Abscess Wound Culture - Preliminary Assessment and Plan (1) Acute delirium Current visit: Yes Status: Acute Category: Medical Code(s): R41.0 - Disorientation, unspecified (2) Febrile illness, acute Current visit: Yes Status: Acute Category: Medical Code(s): R50.9 - Fever, unspecified (3) Left knee pain Current visit: No Status: Acute Qualifiers: Chronicity: chronic Qualified Code(s): M25.562 - Pain in left knee; G89.29 - Other chronic pain Category: Medical Code(s): M25.562 - Pain in left knee (4) CRPS (complex regional pain syndrome type I) Current visit: No Status: Chronic Qualifiers: Complex regional pain syndrome affected site: unspecified Qualified Code(s): G90.50 - Complex regional pain syndrome I, unspecified Category: Medical Code(s): G90.50 - Complex regional pain syndrome I, unspecified (5) Low back pain Current visit: No Status: Chronic Qualifiers: Chronicity: chronic Back pain laterality: midline Sciatica presence: with sciatica Sciatica laterality: bilateral sciatica Qualified Code(s): M54.41 - Lumbago with sciatica, right side; M54.42 - Lumbago with sciatica, left side; G89.29 - Other chronic pain Category: Medical Code(s): M54.5 - Low back pain (6) Morbid obesity Current visit: Yes Status: Acute Category: Medical Code(s): E66.01 - Morbid (severe) obesity due to excess calories (7) Cellulitis of back [any part except buttock] Current visit: Yes Status: Acute Category: Medical Code(s): L03.312 - Cellulitis of back [any part except buttock] (8) Restless leg syndrome Current visit: No Status: Acute Category: Medical Code(s): G25.81 - Restless legs syndrome (9) Hip pain, bilateral Current visit: Yes Status: Acute Category: Medical Code(s): M25.551 - Pain in right hip; M25.552 - Pain in left hip - Assessment and plan all Dx Assessment and Plan for all problems:: Saw patient, agree with above note.
--- NOTE | 2018-05-30 08:20 | Progress Note ---
<Leola Light - Last Filed: 05/30/18 08:17> Internal Medicine - PN: Subj *Date: 05/30/18 *Time: 08:17 Interval history: Patient is sleeping this morning and arouses but falls right back to sleep. He mumbles some things about a cow whip and something blowing up. He does say he is in bad shape. When asked if he has pain he says "yes, all over." He has not eaten any of his breakfast. Exam Vital signs and Labs for Last 24 Hours: Temp Pulse Resp BP Pulse Ox 97.9 F 65 18 103/81 L 96 05/30/18 04:00 05/30/18 04:00 05/30/18 04:00 05/30/18 04:00 05/30/18 04:00 Laboratory Results - last 24 hr 05/29/18 22:14: Vancomycin Trough 13.2 I & O for Last 24 hours: Intake & Output 05/27/18 05/28/18 05/29/18 05/30/18 11:59 11:59 11:59 11:59 Intake Total 5027 / 5027 770 / 770 240 / 240 Output Total 350 / 350 600 / 600 Balance 4677 / 4677 770 / 770 -360 / -360 Weight 300 lb 4 oz 297 lb 6 oz 296 lb 4 oz 298 lb 8.165 oz Microbiology Reports for the Last 24 Hours: Microbiology 05/27/18 10:51 Back - Abscess Gram Stain - Final 05/27/18 10:51 Back - Abscess Wound Culture - Preliminary Gram Positive Cocci Gram Positive Cocci#2 Radiology Reports for the Last 24 Hours: X-ray of hips and back from yesterday show no fracture - Constitutional Comments: sleeping - arouses but falls right back to sleep - *Routine Respiratory Exam Present: wheezes (bilaterally, no rales) - *Routine Cardiovascular Exam Present: RRR - *Routine Abdominal Exam Present: soft, normoactive bowel sounds, tenderness (patient grimaces with palpation of the entire stomach) - *Routine Extremities Exam Absent: cyanosis, clubbing, edema - *Routine Neurological Exam confused Assessment and Plan (1) Acute delirium Current visit: Yes Status: Acute Category: Medical Code(s): R41.0 - Disorientation, unspecified (2) Febrile illness, acute Current visit: Yes Status: Acute Category: Medical Code(s): R50.9 - Fever, unspecified (3) Left knee pain Current visit: No Status: Acute Qualifiers: Chronicity: chronic Qualified Code(s): M25.562 - Pain in left knee; G89.29 - Other chronic pain Category: Medical Code(s): M25.562 - Pain in left knee (4) CRPS (complex regional pain syndrome type I) Current visit: No Status: Chronic Qualifiers: Complex regional pain syndrome affected site: unspecified Qualified Code(s): G90.50 - Complex regional pain syndrome I, unspecified Category: Medical Code(s): G90.50 - Complex regional pain syndrome I, unspecified (5) Low back pain Current visit: No Status: Chronic Qualifiers: Chronicity: chronic Back pain laterality: midline Sciatica presence: with sciatica Sciatica laterality: bilateral sciatica Qualified Code(s): M54.41 - Lumbago with sciatica, right side; M54.42 - Lumbago with sciatica, left side; G89.29 - Other chronic pain Category: Medical Code(s): M54.5 - Low back pain (6) Morbid obesity Current visit: Yes Status: Acute Category: Medical Code(s): E66.01 - Morbid (severe) obesity due to excess calories (7) Cellulitis of back [any part except buttock] Current visit: Yes Status: Acute Category: Medical Code(s): L03.312 - Cellulitis of back [any part except buttock] (8) Restless leg syndrome Current visit: No Status: Acute Category: Medical Code(s): G25.81 - Restless legs syndrome (9) Hip pain, bilateral Current visit: Yes Status: Acute Category: Medical Code(s): M25.551 - Pain in right hip; M25.552 - Pain in left hip - Assessment and plan all Dx Assessment and Plan for all problems:: Will discuss further care with Dr. Dowd. <Darren Dowd - Last Filed: 05/30/18 08:50> Exam Vital signs and Labs for Last 24 Hours: Temp Pulse Resp BP Pulse Ox 97.9 F 65 18 103/81 L 96 05/30/18 04:00 05/30/18 04:00 05/30/18 04:00 05/30/18 04:00 05/30/18 08:00 Laboratory Results - last 24 hr 05/29/18 22:14: Vancomycin Trough 13.2 I & O for Last 24 hours: Intake & Output 05/27/18 05/28/18 05/29/18 05/30/18 11:59 11:59 11:59 11:59 Intake Total 5027 / 5027 770 / 770 240 / 240 Output Total 350 / 350 600 / 600 Balance 4677 / 4677 770 / 770 -360 / -360 Weight 300 lb 4 oz 297 lb 6 oz 296 lb 4 oz 298 lb 8.165 oz Microbiology Reports for the Last 24 Hours: Microbiology 05/27/18 10:51 Back - Abscess Gram Stain - Final 05/27/18 10:51 Back - Abscess Wound Culture - Preliminary Gram Positive Cocci Gram Positive Cocci#2 Assessment and Plan (1) Acute delirium Current visit: Yes Status: Acute Category: Medical Code(s): R41.0 - Disorientation, unspecified (2) Febrile illness, acute Current visit: Yes Status: Acute Category: Medical Code(s): R50.9 - Fever, unspecified (3) Left knee pain Current visit: No Status: Acute Qualifiers: Chronicity: chronic Qualified Code(s): M25.562 - Pain in left knee; G89.29 - Other chronic pain Category: Medical Code(s): M25.562 - Pain in left knee (4) CRPS (complex regional pain syndrome type I) Current visit: No Status: Chronic Qualifiers: Complex regional pain syndrome affected site: unspecified Qualified Code(s): G90.50 - Complex regional pain syndrome I, unspecified Category: Medical Code(s): G90.50 - Complex regional pain syndrome I, unspecified (5) Low back pain Current visit: No Status: Chronic Qualifiers: Chronicity: chronic Back pain laterality: midline Sciatica presence: with sciatica Sciatica laterality: bilateral sciatica Qualified Code(s): M54.41 - Lumbago with sciatica, right side; M54.42 - Lumbago with sciatica, left side; G89.29 - Other chronic pain Category: Medical Code(s): M54.5 - Low back pain (6) Morbid obesity Current visit: Yes Status: Acute Category: Medical Code(s): E66.01 - Morbid (severe) obesity due to excess calories (7) Cellulitis of back [any part except buttock] Current visit: Yes Status: Acute Category: Medical Code(s): L03.312 - Cellulitis of back [any part except buttock] (8) Restless leg syndrome Current visit: No Status: Acute Category: Medical Code(s): G25.81 - Restless legs syndrome (9) Hip pain, bilateral Current visit: Yes Status: Acute Category: Medical Code(s): M25.551 - Pain in right hip; M25.552 - Pain in left hip - Assessment and plan all Dx Assessment and Plan for all problems:: Saw patient, he continues to have back pain, states he would like to get up to a chair today. Needs better IV access, will order a PICC line. Wound culture has growth this morning.
--- NOTE | 2018-05-30 08:39 | Progress Note ---
Internal Medicine - PN: Subj *Date: 05/30/18 *Time: 08:39 Exam Vital signs and Labs for Last 24 Hours: Temp Pulse Resp BP Pulse Ox 97.9 F 65 18 103/81 L 96 05/30/18 04:00 05/30/18 04:00 05/30/18 04:00 05/30/18 04:00 05/30/18 08:00 Laboratory Results - last 24 hr 05/29/18 22:14: Vancomycin Trough 13.2 I & O for Last 24 hours: Intake & Output 05/27/18 05/28/18 05/29/18 05/30/18 23:59 23:59 23:59 23:59 Intake Total 3199 / 3199 2478 / 2478 360 / 360 Output Total 350 / 350 600 / 600 Balance 3199 / 3199 2128 / 2128 -240 / -240 Weight 136.191 kg 134.887 kg 134.377 kg 135.402 kg Microbiology Reports for the Last 24 Hours: Microbiology 05/27/18 10:51 Back - Abscess Gram Stain - Final 05/27/18 10:51 Back - Abscess Wound Culture - Preliminary Gram Positive Cocci Gram Positive Cocci#2 Assessment and Plan (1) Acute delirium Current visit: Yes Status: Acute Category: Medical Code(s): R41.0 - Disorientation, unspecified (2) Febrile illness, acute Current visit: Yes Status: Acute Category: Medical Code(s): R50.9 - Fever, unspecified (3) Left knee pain Current visit: No Status: Acute Qualifiers: Chronicity: chronic Qualified Code(s): M25.562 - Pain in left knee; G89.29 - Other chronic pain Category: Medical Code(s): M25.562 - Pain in left knee (4) CRPS (complex regional pain syndrome type I) Current visit: No Status: Chronic Qualifiers: Complex regional pain syndrome affected site: unspecified Qualified Code(s): G90.50 - Complex regional pain syndrome I, unspecified Category: Medical Code(s): G90.50 - Complex regional pain syndrome I, unspecified (5) Low back pain Current visit: No Status: Chronic Qualifiers: Chronicity: chronic Back pain laterality: midline Sciatica presence: with sciatica Sciatica laterality: bilateral sciatica Qualified Code(s): M54.41 - Lumbago with sciatica, right side; M54.42 - Lumbago with sciatica, left side; G89.29 - Other chronic pain Category: Medical Code(s): M54.5 - Low back pain (6) Morbid obesity Current visit: Yes Status: Acute Category: Medical Code(s): E66.01 - Morbid (severe) obesity due to excess calories (7) Cellulitis of back [any part except buttock] Current visit: Yes Status: Acute Category: Medical Code(s): L03.312 - Cellulitis of back [any part except buttock] (8) Restless leg syndrome Current visit: No Status: Acute Category: Medical Code(s): G25.81 - Restless legs syndrome (9) Hip pain, bilateral Current visit: Yes Status: Acute Category: Medical Code(s): M25.551 - Pain in right hip; M25.552 - Pain in left hip The patient's infection will respond to the chosen ABx?: Yes Is the patient receiving the right drug, dose, and route?: Yes Could a more targeted ABx be ordered?: No
[2018-05-30 09:49] LABS: Basophils % 0.4 % (0.1-2.0); Eosinophils # 0.4 K/mm3 (0.0-0.4); Eosinophils % 6.1 % (0.1-12.0); Hematocrit 34.1 % (42.0-52.0); Hemoglobin 11.4 g/dL (14.1-18.0); Lymphocytes % 16.6 K/mm3 (10-50); Mean Corpuscular HGB Conc 33.3 g/dL (31.8-35.4); Mean Platelet Volume 9.1 fl (7.4-10.4); Monocytes # 0.4 K/mm3 (0.1-1.0); Monocytes % 7.2 % (1.7-9.3); Neutrophils % 69.7 % (37.0-80.0); Platelet Count 152 K/mm3 (142-424); Red Blood Count 3.56 M/mm3 (4.60-6.20); Red Cell Distribution Width 12.9 % (11.5-17.5); White Blood Count 5.8 K/mm3 (4.8-10.8)
--- NOTE | 2018-05-30 10:21 | Pharmacy Consult Notes ---
- Pharmacy Consult Date: 05/30/18 Time: 10:19 Referring provider: DR. SANDERSON Reason for Consult:: VANCOMYCIN TROUGH LEVEL Allergies and ADEs:: Allergies Allergy/AdvReac Type Severity Reaction Status Date / Time No Known Allergies Allergy Verified 05/23/18 23:16 Home Medications:: Home Medications Medication Instructions Recorded Confirmed Type acetaminophen ER 650 mg 650 mg PO Q4HP PRN 08/15/17 05/23/18 History tablet,extended release atorvastatin 10 mg tablet 10 mg PO HS 08/15/17 05/24/18 History cetirizine 10 mg chewable tablet 1 tab PO HS tab 08/15/17 05/23/18 History cholecalciferol (vitamin D3) 1,000 1,000 unit PO DAILY 08/15/17 05/23/18 History unit capsule gabapentin 300 mg capsule 600 mg PO TID 08/15/17 05/23/18 History magnesium 71.5 mg (magnesium 71.5 mg PO DAILY tab 08/15/17 05/23/18 History chloride) tablet,delayed release melatonin 5 mg capsule 10 mg PO HS 08/15/17 05/23/18 History meloxicam 15 mg tablet 15 mg PO HS 08/15/17 05/23/18 History ropinirole 4 mg tablet 4 mg PO BID 30 Days #30 02/24/18 05/23/18 History Duloxetine HCl [Cymbalta] 60 mg PO DAILY 04/30/18 05/24/18 History Tamsulosin HCl [Flomax 0.4mg 0.4 mg PO HS 05/24/18 05/24/18 History capsule] Height: 1.78 m Weight: 135.402 kg Laboratory Results:: Laboratory Results - last 24 hr 05/29/18 22:14: Vancomycin Trough 13.2 05/30/18 09:40: WBC 5.8, RBC 3.56 L, Hgb 11.4 L, Hct 34.1 L, MCV 96.0 H, MCH 32.0 H, MCHC 33.3, RDW 12.9, Plt Count 152, MPV 9.1, Neut % (Auto) 69.7, Lymph % (Auto) 16.6, [place] % (Auto) 7.2, Eos % (Auto) 6.1, Baso % (Auto) 0.4, Neut # (Auto) 4.0, Lymph # (Auto) 1.0, [place] # (Auto) 0.4, Eos # (Auto) 0.4, Baso # (Auto) 0.0 Medical History: Reports:: BPH, Hyperlipidemia Denies:: Cancer, Diabetes Mellitus Type 1, Diabetes Mellitus Type 2, MRSA, Seizures Assessment and Plan (1) Acute delirium Current visit: Yes Status: Acute Category: Medical Code(s): R41.0 - Disorientation, unspecified (2) Febrile illness, acute Current visit: Yes Status: Acute Category: Medical Code(s): R50.9 - Fever, unspecified (3) Left knee pain Current visit: No Status: Acute Qualifiers: Chronicity: chronic Qualified Code(s): M25.562 - Pain in left knee; G89.29 - Other chronic pain Category: Medical Code(s): M25.562 - Pain in left knee (4) CRPS (complex regional pain syndrome type I) Current visit: No Status: Chronic Qualifiers: Complex regional pain syndrome affected site: unspecified Qualified Code(s): G90.50 - Complex regional pain syndrome I, unspecified Category: Medical Code(s): G90.50 - Complex regional pain syndrome I, unspecified (5) Low back pain Current visit: No Status: Chronic Qualifiers: Chronicity: chronic Back pain laterality: midline Sciatica presence: with sciatica Sciatica laterality: bilateral sciatica Qualified Code(s): M54.41 - Lumbago with sciatica, right side; M54.42 - Lumbago with sciatica, left side; G89.29 - Other chronic pain Category: Medical Code(s): M54.5 - Low back pain (6) Morbid obesity Current visit: Yes Status: Acute Category: Medical Code(s): E66.01 - Morbid (severe) obesity due to excess calories (7) Cellulitis of back [any part except buttock] Current visit: Yes Status: Acute Category: Medical Code(s): L03.312 - Cellulitis of back [any part except buttock] (8) Restless leg syndrome Current visit: No Status: Acute Category: Medical Code(s): G25.81 - Restless legs syndrome (9) Hip pain, bilateral Current visit: Yes Status: Acute Category: Medical Code(s): M25.551 - Pain in right hip; M25.552 - Pain in left hip - Assessment and plan all Dx Assessment and Plan for all problems:: BASED ON PATIENT FACTORS AND VANCOMYCIN TROUGH LEVEL, RECOMMEND CONTINUING VANCOMYCIN 2250MG IV Q18H. PHARMACY WILL CONTINUE TO MONITOR DAILY AND ADJUST APPROPRIATE.
[2018-05-30 11:55] LABS: Albumin Level 2.9 gm/dL (3.4-5.0); Albumin/Globulin Ratio 0.8 (1.1-1.8); Anion Gap 14.3 mEq/L (5-15); Bilirubin,Total 0.6 mg/dL (0.2-1.0); Calcium 8.4 mg/dL (8.5-10.1); Globulin 3.5 gm/dl (1.3-3.2); Potassium 4.3 mmoL/L (3.5-5.1); Total Protein,Serum 6.4 gm/dL (6.4-8.2)
--- NOTE | 2018-05-30 13:03 | Consult Report ---
[facility] Pain Management SOAP Note Subjective:: This patient is a pleasant 72-year-old white male who was admitted with altered mental status and infection. His wound in his back has grown out gram-positive cocci. Patient has been afebrile for 2 days now. He still is occasionally confused however, he is very lucid when I talked to him today. Patient notes some back pain. He has no drainage and no redness and no fluctuance or fluid collection over his stimulator battery or lead incision. Wound infection does seem to be better with antibiotics. Objective:: Sleeping when I first entered the room however was able to be awoken and oriented x3. No tenderness in the lower lumbar area. No fluctuance and no drainage over the generator wound site. Both incisions seem to have healed. They both do not appear infected at this time. No neurological changes. Assessment:: Wound infection status post spinal cord stimulator placement for degenerative disc disease of the lumbar spine with lumbar radiculopathy symptoms. Plan:: I agree with current plan of continue antibiotics. Patient did get a PICC line and will be receiving outpatient antibiotics. He appears to be getting better. There does not seem to be any drainage from his back incision and wounds have healed with decreasing signs of infection. We will continue current plan for now. If anything changes please let us know.
[2018-05-31 06:18] LABS: Basophils % 0.4 % (0.1-2.0); Eosinophils # 0.3 K/mm3 (0.0-0.4); Eosinophils % 5.1 % (0.1-12.0); Hematocrit 30.6 % (42.0-52.0); Lymphocytes % 18.5 K/mm3 (10-50); Mean Corpuscular HGB Conc 35.8 g/dL (31.8-35.4); Mean Corpuscular Hemoglobin 34.6 pg (27.0-31.2); Mean Corpuscular Volume 96.6 fl (80-94); Mean Platelet Volume 8.5 fl (7.4-10.4); Monocytes # 0.3 K/mm3 (0.1-1.0); Monocytes % 5.5 % (1.7-9.3); Neutrophils # 3.9 K/mm3 (1.8-7.8); Neutrophils % 70.5 % (37.0-80.0); Platelet Count 171 K/mm3 (142-424); Red Blood Count 3.17 M/mm3 (4.60-6.20); Red Cell Distribution Width 13.1 % (11.5-17.5); White Blood Count 5.5 K/mm3 (4.8-10.8)
[2018-05-31 06:47] LABS: Anion Gap 12.1 mEq/L (5-15); Calcium 8.7 mg/dL (8.5-10.1); Potassium 4.1 mmoL/L (3.5-5.1)
--- NOTE | 2018-05-31 09:44 | Progress Note ---
Internal Medicine - PN: Subj *Date: 05/31/18 *Time: 09:40 Interval history: Patient with no new complaints today. Back pain is a little better today, had PICC line placed yesterday. Still needs at least 2 people to assist him out of bed. Exam Vital signs and Labs for Last 24 Hours: Temp Pulse Resp BP Pulse Ox 98.2 F 71 20 155/72 H 93 L 05/31/18 07:22 05/31/18 07:22 05/31/18 07:22 05/31/18 07:22 05/31/18 07:39 Laboratory Results - last 24 hr 05/30/18 09:40: WBC 5.8, RBC 3.56 L, Hgb 11.4 L, Hct 34.1 L, MCV 96.0 H, MCH 32.0 H, MCHC 33.3, RDW 12.9, Plt Count 152, MPV 9.1, Neut % (Auto) 69.7, Lymph % (Auto) 16.6, [place] % (Auto) 7.2, Eos % (Auto) 6.1, Baso % (Auto) 0.4, Neut # (Auto) 4.0, Lymph # (Auto) 1.0, [place] # (Auto) 0.4, Eos # (Auto) 0.4, Baso # (Auto) 0.0 05/30/18 09:40: Sodium 138, Potassium 4.3, Chloride 100, Carbon Dioxide 28, Anion Gap 14.3, BUN 12, Creatinine 0.85, Estimated Creat Clear 68, Estimated GFR 88, Est GFR ( Amer) 107, Glucose 93, Calcium 8.4 L, Total Bilirubin 0.6, AST 34, ALT 33, Alkaline Phosphatase 75, Total Creatine Kinase 182, Total Protein 6.4, Albumin 2.9 L, Globulin 3.5 H, Albumin/Globulin Ratio 0.8 L 05/31/18 06:05: WBC 5.5, RBC 3.17 L, Hgb 11.0 L, Hct 30.6 L, MCV 96.6 H, MCH 34.6 H, MCHC 35.8 H, RDW 13.1, Plt Count 171, MPV 8.5, Neut % (Auto) 70.5, Lymph % (Auto) 18.5, [place] % (Auto) 5.5, Eos % (Auto) 5.1, Baso % (Auto) 0.4, Neut # (Auto) 3.9, Lymph # (Auto) 1.0, [place] # (Auto) 0.3, Eos # (Auto) 0.3, Baso # (Auto) 0.0 05/31/18 06:05: Sodium 137, Potassium 4.1, Chloride 100, Carbon Dioxide 29, Anion Gap 12.1, BUN 13, Creatinine 1.01, Estimated Creat Clear 119, Estimated GFR 72, Est GFR ( Amer) 88, Glucose 109 H, Calcium 8.7 I & O for Last 24 hours: Intake & Output 05/28/18 05/29/18 05/30/18 05/31/18 11:59 11:59 11:59 11:59 Intake Total 5027 / 5027 770 / 770 700 / 700 1184 / 1184 Output Total 350 / 350 1500 / 1500 2650 / 2650 Balance 4677 / 4677 770 / 770 -800 / -800 -1466 / -1466 Weight 297 lb 6 oz 296 lb 4 oz 298 lb 8.165 oz 285 lb 7 oz Microbiology Reports for the Last 24 Hours: Microbiology 05/27/18 10:51 Back - Abscess Gram Stain - Final 05/27/18 10:51 Back - Abscess Wound Culture - Final Staphylococcus aureus Staphylococcus epidermidis - Constitutional no acute distress - *Routine HEENT Exam Head: Present: normocephalic Eye: Present: EOMI, PERRL ENT: Present: mucous membranes moist - *Routine Neck Exam Present: supple. Absent: lymphadenopathy - *Routine Respiratory Exam Present: CTA bilaterally - *Routine Cardiovascular Exam Present: RRR - *Routine Abdominal Exam Present: soft, normoactive bowel sounds. Absent: tenderness - *Routine Extremities Exam Absent: cyanosis, clubbing, edema - *Routine Skin Exam Present: warm. Absent: rash - *Routine Neurological Exam Present: alert, oriented X3 Assessment and Plan (1) Abscess of back Problem details: Staph aureus and staph epidermidis are causitive agents Current visit: Yes Status: Acute Category: Medical Code(s): L02.212 - Cutaneous abscess of back [any part, except buttock] (2) Surgical wound infection Current visit: Yes Status: Acute Category: Medical Code(s): T81.49XA - Infection following a procedure, other surgical site, initial encounter (3) Cellulitis of back [any part except buttock] Current visit: Yes Status: Acute Category: Medical Code(s): L03.312 - Cellulitis of back [any part except buttock] (4) Acute delirium Current visit: Yes Status: Acute Category: Medical Code(s): R41.0 - Disorientation, unspecified (5) Febrile illness, acute Current visit: Yes Status: Acute Category: Medical Code(s): R50.9 - Fever, unspecified (6) Left knee pain Current visit: No Status: Acute Qualifiers: Chronicity: chronic Qualified Code(s): M25.562 - Pain in left knee; G89.29 - Other chronic pain Category: Medical Code(s): M25.562 - Pain in left knee (7) CRPS (complex regional pain syndrome type I) Current visit: No Status: Chronic Qualifiers: Complex regional pain syndrome affected site: unspecified Qualified Code(s): G90.50 - Complex regional pain syndrome I, unspecified Category: Medical Code(s): G90.50 - Complex regional pain syndrome I, unspecified (8) Low back pain Current visit: No Status: Chronic Qualifiers: Chronicity: chronic Back pain laterality: midline Sciatica presence: with sciatica Sciatica laterality: bilateral sciatica Qualified Code(s): M54.41 - Lumbago with sciatica, right side; M54.42 - Lumbago with sciatica, left side; G89.29 - Other chronic pain Category: Medical Code(s): M54.5 - Low back pain (9) Morbid obesity Current visit: Yes Status: Acute Category: Medical Code(s): E66.01 - Morbid (severe) obesity due to excess calories (10) Restless leg syndrome Current visit: No Status: Acute Category: Medical Code(s): G25.81 - Restless legs syndrome (11) Hip pain, bilateral Current visit: Yes Status: Acute Category: Medical Code(s): M25.551 - Pain in right hip; M25.552 - Pain in left hip - Assessment and plan all Dx Assessment and Plan for all problems:: Patient is improving, continue current care.
--- NOTE | 2018-06-01 09:44 | Progress Note ---
Internal Medicine - PN: Subj *Date: 06/01/18 *Time: 09:41 Interval history: Patient states he feels some better today, he is sitting up in a chair. PICC line not infusing this morning. Exam Vital signs and Labs for Last 24 Hours: Temp Pulse Resp BP Pulse Ox 97.4 F L 81 20 100/49 L 93 L 06/01/18 07:45 06/01/18 07:45 06/01/18 07:45 06/01/18 07:45 06/01/18 07:45 I & O for Last 24 hours: Intake & Output 05/29/18 05/30/18 05/31/18 06/01/18 11:59 11:59 11:59 11:59 Intake Total 770 / 770 700 / 700 1184 / 1184 1080 / 1080 Output Total 1500 / 1500 2950 / 2950 2600 / 2600 Balance 770 / 770 -800 / -800 -1766 / -1766 -1520 / -1520 Weight 296 lb 4 oz 298 lb 8.165 oz 285 lb 7 oz 284 lb 9 oz Microbiology Reports for the Last 24 Hours: Microbiology 05/27/18 10:51 Back - Abscess Gram Stain - Final 05/27/18 10:51 Back - Abscess Wound Culture - Final Staphylococcus aureus Staphylococcus epidermidis Wound culture report changed to MRSA. - Constitutional no acute distress - *Routine HEENT Exam Head: Present: normocephalic Eye: Present: EOMI, PERRL ENT: Present: mucous membranes moist - *Routine Cardiovascular Exam Present: RRR Assessment and Plan (1) Abscess of back Problem details: Staph aureus and staph epidermidis are causitive agents Current visit: Yes Status: Acute Category: Medical Code(s): L02.212 - Cutaneous abscess of back [any part, except buttock] (2) Surgical wound infection Current visit: Yes Status: Acute Category: Medical Code(s): T81.49XA - Infection following a procedure, other surgical site, initial encounter (3) MRSA (methicillin resistant Staphylococcus aureus) infection Current visit: Yes Status: Acute Category: Medical Code(s): A49.02 - Methicillin resistant Staphylococcus aureus infection, unspecified site (4) Cellulitis of back [any part except buttock] Current visit: Yes Status: Acute Category: Medical Code(s): L03.312 - Cellulitis of back [any part except buttock] (5) Acute delirium Current visit: Yes Status: Acute Category: Medical Code(s): R41.0 - Disorientation, unspecified (6) Febrile illness, acute Current visit: Yes Status: Acute Category: Medical Code(s): R50.9 - Fever, unspecified (7) Left knee pain Current visit: No Status: Acute Qualifiers: Chronicity: chronic Qualified Code(s): M25.562 - Pain in left knee; G89.29 - Other chronic pain Category: Medical Code(s): M25.562 - Pain in left knee (8) CRPS (complex regional pain syndrome type I) Current visit: No Status: Chronic Qualifiers: Complex regional pain syndrome affected site: unspecified Qualified Code(s): G90.50 - Complex regional pain syndrome I, unspecified Category: Medical Code(s): G90.50 - Complex regional pain syndrome I, unspecified (9) Low back pain Current visit: No Status: Chronic Qualifiers: Chronicity: chronic Back pain laterality: midline Sciatica presence: with sciatica Sciatica laterality: bilateral sciatica Qualified Code(s): M54.41 - Lumbago with sciatica, right side; M54.42 - Lumbago with sciatica, left side; G 89.29 - Other chronic pain Category: Medical Code(s): M54.5 - Low back pain (10) Morbid obesity Current visit: Yes Status: Acute Category: Medical Code(s): E66.01 - Morbid (severe) obesity due to excess calories (11) Restless leg syndrome Current visit: No Status: Acute Category: Medical Code(s): G25.81 - Restless legs syndrome (12) Hip pain, bilateral Current visit: Yes Status: Acute Category: Medical Code(s): M25.551 - Pain in right hip; M25.552 - Pain in left hip - Assessment and plan all Dx Assessment and Plan for all problems:: Continue current treatment, will check CXR today to assess PICC line.
--- NOTE | 2018-06-02 07:57 | Progress Note ---
<Velia Brady - Last Filed: 06/02/18 07:54> Internal Medicine - PN: Subj *Date: 06/02/18 *Time: 07:54 Interval history: Patient states he is doing better every day. He does have periodic back pain. He denies chest pain shortness of breath, nausea and constipation. He states his bowels move yesterday. He is not eating as much but states he needs to lose weight. He is voiding without difficulty. He is able to walk with his walker with assistance. He is out of bed to chair with maximum assistance. Per nursing: PICC line is not working. They will be consulting with specialty nursing for PICC line resolution. Patient did sleep during the night but without his CPAP. Exam Vital signs and Labs for Last 24 Hours: Temp Pulse Resp BP Pulse Ox 98.1 F 62 18 102/70 L 93 L 06/02/18 07:39 06/02/18 07:39 06/02/18 07:39 06/02/18 07:39 06/02/18 07:39 I & O for Last 24 hours: Intake & Output 05/30/18 05/31/18 06/01/18 06/02/18 11:59 11:59 11:59 11:59 Intake Total 700 / 700 1184 / 1184 1080 / 1080 840 / 840 Output Total 1500 / 1500 2950 / 2950 2600 / 2600 300 / 300 Balance -800 / -800 -1766 / -1766 -1520 / -1520 540 / 540 Weight 298 lb 8.165 oz 285 lb 7 oz 284 lb 9 oz 277 lb 3 oz Radiology Reports for the Last 24 Hours: 06/01/2018 chest x-ray for PICC line placement IMPRESSION: The left upper from a PICC line tip is not identified but is at least at or past the region of the subclavian vein. - Constitutional no acute distress Comments: Sitting in recliner and appears comfortable - *Routine Respiratory Exam Present: CTA bilaterally (Anteriorly and posteriorly with good bilateral air ex change) - *Routine Cardiovascular Exam Present: RRR - *Routine Abdominal Exam Present: soft, normoactive bowel sounds. Absent: tenderness - *Routine Extremities Exam Comments: Trace edema of right lower extremity - Routine Back/Spine/Pelvis Exam Back/Spine: Absent: vertebral tenderness Comments: Ecchymosis around postoperative wound sites; wounds appeared healed - *Routine Neurological Exam Has name, date and date memorized. He does not know where he is Assessment and Plan (1) Abscess of back Problem details: Staph aureus and staph epidermidis are causitive agents Current visit: Yes Status: Acute Category: Medical Code(s): L02.212 - Cuta neous abscess of back [any part, except buttock] (2) Surgical wound infection Current visit: Yes Status: Acute Category: Medical Code(s): T81.49XA - Infection following a procedure, other surgical site, initial encounter (3) MRSA (methicillin resistant Staphylococcus aureus) infection Current visit: Yes Status: Acute Category: Medical Code(s): A49.02 - Methicillin resistant Staphylococcus aureus infection, unspecified site (4) Cellulitis of back [any part except buttock] Current visit: Yes Status: Acute Category: Medical Code(s): L03.312 - Cellulitis of back [any part except buttock] (5) Acute delirium Current visit: Yes Status: Acute Category: Medical Code(s): R41.0 - Disorientation, unspecified (6) Febrile illness, acute Current visit: Yes Status: Acute Category: Medical Code(s): R50.9 - Fever, unspecified (7) Left knee pain Current visit: No Status: Acute Qualifiers: Chronicity: chronic Qualified Code(s): M25.562 - Pain in left knee; G89.29 - Other chronic pain Category: Medical Code(s): M25.562 - Pain in left knee (8) CRPS (complex regional pain syndrome type I) Current visit: No Status: Chronic Qualifiers: Complex regional pain syndrome affected site: unspecified Qualified Code(s): G90.50 - Complex regional pain syndrome I, unspecified Category: Medical Code(s): G90.50 - Complex regional pain syndrome I, unspecified (9) Low back pain Current visit: No Status: Chronic Qualifiers: Chronicity: chronic Back pain laterality: midline Sciatica presence: with sciatica Sciatica laterality: bilateral sciatica Qualified Code(s): M54.41 - Lumbago with sciatica, right side; M54.42 - Lumbago with sciatica, left side; G89.29 - Other chronic pain Category: Medical Code(s): M54.5 - Low back pain (10) Morbid obesity Current visit: Yes Status: Acute Category: Medical Code(s): E66.01 - Morbid (severe) obesity due to excess calories (11) Restless leg syndrome Current visit: No Status: Acute Category: Medical Code(s): G25.81 - Restless legs syndrome (12) Hip pain, bilateral Current visit: Yes Status: Acute Category: Medical Code(s): M25.551 - Pain in right hip; M25.552 - Pain in left hip (13) Decreased mobility Current visit: Yes Status: Acute Category: Medical Code(s): R26.89 - Other abnormalities of gait and mobility (14) Confusion Current visit: Yes Status: Acute Category: Medical Code(s): R41.0 - Disorientation, unspecified - Assessment and plan all Dx Assessment and Plan for all problems:: Nurses to assess PICC line. Continue with reorientation. Continue with an tibiotics and physical therapy. Per care management family is looking at [place] at discharge <Darren Dowd - Last Filed: 06/02/18 08:54> Exam Vital signs and Labs for Last 24 Hours: Temp Pulse Resp BP Pulse Ox 98.1 F 62 18 102/70 L 93 L 06/02/18 07:39 06/02/18 07:39 06/02/18 07:39 06/02/18 07:39 06/02/18 07:39 I & O for Last 24 hours: Intake & Output 05/30/18 05/31/18 06/01/18 06/02/18 11:59 11:59 11:59 11:59 Intake Total 700 / 700 1184 / 1184 1080 / 1080 840 / 840 Output Total 1500 / 1500 2950 / 2950 2600 / 2600 300 / 300 Balance -800 / -800 -1766 / -1766 -1520 / -1520 540 / 540 Weight 298 lb 8.165 oz 285 lb 7 oz 284 lb 9 oz 277 lb 3 oz Assessment and Plan (1) Abscess of back Problem details: Staph aureus and staph epidermidis are causitive agents Cu rrent visit: Yes Status: Acute Category: Medical Code(s): L02.212 - Cutaneous abscess of back [any part, except buttock] (2) Surgical wound infection Current visit: Yes Status: Acute Category: Medical Code(s): T81.49XA - Infection following a procedure, other surgical site, initial encounter (3) MRSA (methicillin resistant Staphylococcus aureus) infection Current visit: Yes Status: Acute Category: Medical Code(s): A49.02 - Methicillin resistant Staphylococcus aureus infection, unspecified site (4) Cellulitis of back [any part except buttock] Current visit: Yes Status: Acute Category: Medical Code(s): L03.312 - Cellulitis of back [any part except buttock] (5) Acute delirium Current visit: Yes Status: Acute Category: Medical Code(s): R41.0 - Disorientation, unspecified (6) Febrile illness, acute Current visit: Yes Status: Acute Category: Medical Code(s): R50.9 - Fever, unspecified (7) Left knee pain Current visit: No Status: Acute Qualifiers: Chronicity: chronic Qualified Code(s): M25.562 - Pain in left knee; G89.29 - Other chronic pain Category: Medical Code(s): M25.562 - Pain in left knee (8) CRPS (complex regional pain syndrome type I) Current visit: No Status: Chronic Qualifiers: Complex regional pain syndrome affected site: unspecified Qualified Code(s): G90.50 - Complex regional pain syndrome I, unspecified Category: Medical Code(s): G90.50 - Complex regional pain syndrome I, unspecified (9) Low back pain Current visit: No Status: Chronic Qualifiers: Chronicity: chronic Back pain laterality: midline Sciatica presence: with sciatica Sciatica laterality: bilateral sciatica Qualified Code(s): M54.41 - Lumbago with sciatica, right side; M54.42 - Lumbago with sciatica, left side; G89.29 - Other chronic pain Category: Medical Code(s): M54.5 - Low back pain (10) Morbid obesity Current visit: Yes Status: Acute Category: Medical Code(s): E66.01 - Morbid (severe) obesity due to excess calories (11) Restless leg syndrome Current visit: No Status: Acute Category: Medical Code(s): G25.81 - Restless legs syndrome (12) Hip pain, bilateral Current visit: Yes Status: Acute Category: Medical Code(s): M25.551 - Pain in right hip; M25.552 - Pain in left hip (13) Decreased mobility Current visit: Yes Status: Acute Category: Medical Code(s): R26.89 - Other abnormalities of gait and mobility (14) Confusion Current visit: Yes Status: Acute Category: Medical Code(s): R41.0 - Disorientation, unspecified - Assessment and plan all Dx Assessment and Plan for all problems:: Saw patient, agree with above note. PICC line to be replaced today, discharge planning in progress.
--- NOTE | 2018-06-03 07:59 | Progress Note ---
<Velia Brady - Last Filed: 06/03/18 07:56> Internal Medicine - PN: Subj *Date: 06/03/18 (n) *Time: 07:56 Interval history: Patient states he is feeling better today. He did sleep but did not use his CPAP. He denies chest pain and shortness of breath. He is eating as usual. He states that he did walk yesterday. Physical therapy note reviewed and noted that he walked 5 feet with a walker. PICC line was replaced yesterday and is functioning well Exam Vital signs and Labs for Last 24 Hours: Temp Pulse Resp BP Pulse Ox 97.6 F 71 20 144/71 H 94 L 06/03/18 04:32 06/03/18 04:32 06/03/18 04:32 06/03/18 04:32 06/03/18 04:32 Laboratory Results - last 24 hr 06/02/18 16:30: Vancomycin Trough 16.6 I & O for Last 24 hours: Intake & Output 05/31/18 06/01/18 06/02/18 06/03/18 11:59 11:59 11:59 11:59 Intake Total 1184 / 1184 1080 / 1080 840 / 840 720 / 720 Output Total 2950 / 2950 2600 / 2600 300 / 300 Balance -1766 / -1766 -1520 / -1520 540 / 540 720 / 720 Weight 285 lb 7 oz 284 lb 9 oz 277 lb 3 oz 277 lb 2 oz Radiology Reports for the Last 24 Hours: 06/02/2018 chest x-ray FINDINGS: The right upper PICC line has been repositioned. The tip is in good position in the region of the superior vena cava. There are atelectatic changes in the right lung base. IMPRESSION: Good position of PICC line - Constitutional no acute distress Comments: Sitting on side of bed eating his breakfast. He looks better. - *Routine Respiratory Exam Present: CTA bilaterally (Anteriorly and posteriorly) - *Routine Cardiovascular Exam Present: RRR - *Routine Abdominal Exam Present: soft, normoactive bowel sounds. Absent: tenderness - *Routine Extremities Exam Present: edema (Trace bilateral leg edema) - *Routine Neurological Exam Present: alert, oriented X3 Assessment and Plan (1) Abscess of back Problem details: Staph aureus and staph epidermidis are causitive agents Current visit: Yes Status: Acute Category: Medical Code(s): L02.212 - Cutaneous abscess of back [any part, except buttock] (2) Surgical wound infection Current visit: Yes Status: Acute Category: Medical Code(s): T81.49XA - Infection following a procedure, other surgical site, initial encounter (3) MRSA (methicillin resistant Staphylococcus aureus) infection Current visit: Yes Status: Acute Category: Medical Code(s): A49.02 - Methicillin resistant Staphylococcus aureus infection, unspecified site (4) Cellulitis of back [any part except buttock] Current visit: Yes Status: Acute Category: Medical Code(s): L03.312 - Cellulitis of back [any part except buttock] (5) Acute delirium Current visit: Yes Status: Acute Category: Medical Code(s): R41.0 - Disorientation, unspecified (6) Febrile illness, acute Current visit: Yes Status: Acute Category: Medical Code(s): R50.9 - Fever, unspecified (7) Left knee pain Current visit: No Status: Acute Qualifiers: Chronicity: chronic Qualified Code(s): M25.562 - Pain in left knee; G89.29 - Other chronic pain Category: Medical Code(s): M25.562 - Pain in left knee (8) CRPS (complex regional pain syndrome type I) Current visit: No Status: Chronic Qualifiers: Complex regional pain syndrome affected site: unspecified Qualified Code(s): G90.50 - Complex regional pain syndrome I, unspecified Category: Medical Code(s): G90.50 - Complex regional pain syndrome I, unspecified (9) Low back pain Current visit: No Status: Chronic Qualifiers: Chronicity: chronic Back pain laterality: midline Sciatica presence: with sciatica Sciatica laterality: bilateral sciatica Qualified Code(s): M54.41 - Lumbago with sciatica, right side; M54.42 - Lumbago with sciatica, left side; G89.29 - Other chronic pain Category: Medical Code(s): M54.5 - Low back pain (10) Morbid obesity Current visit: Yes Status: Acute Category: Medical Code(s): E66.01 - Morbid (severe) obesity due to excess calories (11) Restless leg syndrome Current visit: No Status: Acute Category: Medical Code(s): G25.81 - Restless legs syndrome (12) Hip pain, bilateral Current visit: Yes Status: Acute Category: Medical Code(s): M25.551 - Pain in right hip; M25.552 - Pain in left hip (13) Decreased mobility Current visit: Yes Status: Acute Category: Medical Code(s): R26.89 - Other abnormalities of gait and mobility (14) Confusion Current visit: Yes Status: Acute Category: Medical Code(s): R41.0 - Disorientation, unspecified - Assessment and plan all Dx Assessment and Plan for all problems:: Patient continues to make slow progress. We will continue with antibiotics and physical therapy. Care management working on disposition. <Darren Dowd - Last Filed: 06/03/18 08:31> Exam Vital signs and Labs for Last 24 Hours: Temp Pulse Resp BP Pulse Ox 97.6 F 73 18 147/75 H 94 L 06/03/18 08:00 06/03/18 08:17 06/03/18 08:17 06/03/18 08:00 06/03/18 08:17 Laboratory Results - last 24 hr 06/02/18 16:30: Vancomycin Trough 16.6 I & O for Last 24 hours: Intake & Output 05/31/18 06/01/18 06/02/18 06/03/18 11:59 11:59 11:59 11:59 Intake Total 1184 / 1184 1080 / 1080 840 / 840 720 / 720 Output Total 2950 / 2950 2600 / 2600 300 / 300 Balance -1766 / -1766 -1520 / -1520 540 / 540 720 / 720 Weight 285 lb 7 oz 284 lb 9 oz 277 lb 3 oz 277 lb 2 oz Assessment and Plan (1) Abscess of back Problem details: Staph aureus and staph epidermidis are causitive agents Current visit: Yes Status: Acute Category: Medical Code(s): L02.212 - Cutaneous abscess of back [any part, except buttock] (2) Surgical wound infection Current visit: Yes Status: Acute Category: Medical Code(s): T81.49XA - Infection following a procedure, other surgical site, initial encounter (3) MRSA (methicillin resistant Staphylococcus aureus) infection Current visit: Yes Status: Acute Category: Medical Code(s): A49.02 - Methicillin resistant Staphylococcus aureus infection, unspecified site (4) Cellulitis of back [any part except buttock] Current visit: Yes Status: Acute Category: Medical Code(s): L03.312 - Cellulitis of back [any part except buttock] (5) Acute delirium Current visit: Yes Status: Acute Category: Medical Code(s): R41.0 - Disorientation, unspecified (6) Febrile illness, acute Current visit: Yes Status: Acute Category: Medical Code(s): R50.9 - Fever, unspecified (7) Left knee pain Current visit: No Status: Acute Qualifiers: Chronicity: chronic Qualified Code(s): M25.562 - Pain in left knee; G89.29 - Other chronic pain Category: Medical Code(s): M25.562 - Pain in left knee (8) CRPS (complex regional pain syndrome type I) Current visit: No Status: Chronic Qualifiers: Complex regional pain syndrome affected site: unspecified Qualified Code(s): G90.50 - Complex regional pain syndrome I, unspecified Category: Medical Code(s): G90.50 - Complex regional pain syndrome I, unspecified (9) Low back pain Current visit: No Status: Chronic Qualifiers: Chronicity: chronic Back pain laterality: midline Sciatica presence: with sciatica Sciatica laterality: bilateral sciatica Qualified Code(s): M54.41 - Lumbago with sciatica, right side; M54.42 - Lumbago with sciatica, left side; G89.29 - Other chronic pain Category: Medical Code(s): M54.5 - Low back pain (10) Morbid obesity Current visit: Yes Status: Acute Category: Medical Code(s): E66.01 - Morbid (severe) obesity due to excess calories (11) Restless leg syndrome Current visit: No Status: Acute Category: Medical Code(s): G25.81 - Restless legs syndrome (12) Hip pain, bilateral Current visit: Yes Status: Acute Category: Medical Code(s): M25.551 - Pain in right hip; M25.552 - Pain in left hip (13) Decreased mobility Current visit: Yes Status: Acute Category: Medical Code(s): R26.89 - Other abnormalities of gait and mobility (14) Confusion Current visit: Yes Status: Acute Category: Medical Code(s): R41.0 - Disorientation, unspecified - Assessment and plan all Dx Assessment and Plan for all problems:: Saw patient agree with above note.
--- NOTE | 2018-06-03 10:05 | Swing Bed Reports ---
*Admission Date: 05/23/18 Exam Vital signs and Labs for Last 24 Hours: Temp Pulse Resp BP Pulse Ox 97.6 F 73 18 147/75 H 94 L 06/03/18 08:00 06/03/18 08:17 06/03/18 08:17 06/03/18 08:00 06/03/18 08:17 Laboratory Results - last 24 hr 06/02/18 16:30: Vancomycin Trough 16.6 I & O for Last 24 hours: Intake & Output 05/31/18 06/01/18 06/02/18 06/03/18 11:59 11:59 11:59 11:59 Intake Total 1184 / 1184 1080 / 1080 840 / 840 720 / 720 Output Total 2950 / 2950 2600 / 2600 300 / 300 Balance -1766 / -1766 -1520 / -1520 540 / 540 720 / 720 Weight 285 lb 7 oz 284 lb 9 oz 277 lb 3 oz 277 lb 2 oz Results Labs on day of discharge: Labs from last 24 hours 06/02/18 16:30 Vancomycin Trough 16.6 DS: Diagnosis - Discharge Diagnosis (1) Abscess of back Status: Acute Problem details: Staph aureus and staph epidermidis are causitive agents (2) Surgical wound infection Status: Acute (3) MRSA (methicillin resistant Staphylococcus aureus) infection Status: Acute (4) Cellulitis of back [any part except buttock] Status: Acute (5) Acute delirium Status: Acute (6) Febrile illness, acute Status: Acute (7) Left knee pain Status: Acute (8) CRPS (complex regional pain syndrome type I) Status: Chronic (9) Low back pain Status: Chronic (10) Morbid obesity Status: Acute (11) Restless leg syndrome Status: Acute (12) Hip pain, bilateral Status: Acute (13) Decreased mobility Status: Acute (14) Confusion Status: Acute Discharge/Transfer (Swing Bed) - Plan of Care Resident has been informed of condition and prognosis?: Yes Mobility Status: ambulatory with assistance Goal of treatment:: Patient to return home to prior level of functioning Rehab Potential: Fair Mental Status: Oriented x 3 I concur with the most recent H&P: Yes Date of most recent H&P: 05/24/18 Certification: I have reviewed and agree with this resident's plan of care. I certify that post-hospital shelter facility services are required to be given on an inpatient basis because of the need for shelter care on a continuing basis for the condition(s) for which he/she is receiving inpatient hospital services prior to admission to [facility]. I also certify that the resident meets existing SNF level of care definition. - Discharge from Acute Disposition: [facility] Condition: Good Current Home Med List: Home Medications Medication Instructions Recorded Confirmed Type Tamsulosin HCl [Flomax 0.4mg 0.4 mg PO HS 05/24/18 05/24/18 History capsule] Home Med List for [facility]: Continue atorvastatin 10 mg tablet 10 mg PO HS cholecalciferol (vitamin D3) 1,000 unit capsule 1,000 unit PO DAILY gabapentin 300 mg capsule 600 mg PO TID cetirizine 10 mg chewable tablet 1 tab PO HS tab meloxicam 15 mg tablet 15 mg PO HS melatonin 5 mg capsule 10 mg PO HS magnesium 71.5 mg (magnesium chloride) tablet,delayed release 71.5 mg PO DAILY tab acetaminophen ER 650 mg tablet,extended release 650 mg PO Q4HP PRN PRN Reason: fever or pain ropinirole 4 mg tablet 4 mg PO BID 30 Days #30 Duloxetine HCl [Cymbalta] 60 mg PO DAILY Tamsulosin HCl [Flomax 0.4mg capsule] 0.4 mg PO HS
--- NOTE | 2018-06-03 10:18 | Pharmacy Consult Notes ---
- Pharmacy Consult Date: 06/03/18 Time: 10:16 Referring provider: DR. SANDERSON Reason for Consult:: VANCOMYCIN TROUGH LEVEL Allergies and ADEs:: Allergies Allergy/AdvReac Type Severity Reaction Status Date / Time No Known Allergies Allergy Verified 05/23/18 23:16 Home Medications:: Home Medications Medication Instructions Recorded Confirmed Type acetaminophen ER 650 mg 650 mg PO Q4HP PRN 08/15/17 05/23/18 History tablet,extended release atorvastatin 10 mg tablet 10 mg PO HS 08/15/17 05/24/18 History cetirizine 10 mg chewable tablet 1 tab PO HS tab 08/15/17 05/23/18 History cholecalciferol (vitamin D3) 1,000 1,000 unit PO DAILY 08/15/17 05/23/18 History unit capsule gabapentin 300 mg capsule 600 mg PO TID 08/15/17 05/23/18 History magnesium 71.5 mg (magnesium 71.5 mg PO DAILY tab 08/15/17 05/23/18 History chloride) tablet,delayed release melatonin 5 mg capsule 10 mg PO HS 08/15/17 05/23/18 History meloxicam 15 mg tablet 15 mg PO HS 08/15/17 05/23/18 History ropinirole 4 mg tablet 4 mg PO BID 30 Days #30 02/24/18 05/23/18 History Duloxetine HCl [Cymbalta] 60 mg PO DAILY 04/30/18 05/24/18 History Tamsulosin HCl [Flomax 0.4mg 0.4 mg PO HS 05/24/18 05/24/18 History capsule] Height: 1.78 m Weight: 125.702 kg Laboratory Results:: Laboratory Results - last 24 hr 06/02/18 16:30: Vancomycin Trough 16.6 Medical History: Reports:: BPH, Hyperlipidemia Denies:: Cancer, Diabetes Mellitus Type 1, Diabetes Mellitus Type 2, MRSA, Seizures Assessment and Plan (1) Abscess of back Problem details: Staph aureus and staph epidermidis are causitive agents Current visit: Yes Status: Acute Category: Medical Code(s): L02.212 - Cutaneous abscess of back [any part, except buttock] (2) Surgical wound infection Current visit: Yes Status: Acute Category: Medical Code(s): T81.49XA - Infection following a procedure, other surgical site, initial encounter (3) MRSA (methicillin resistant Staphylococcus aureus) infection Current visit: Yes Status: Acute Category: Medical Code(s): A49.02 - Methicillin resistant Staphylococcus aureus infection, unspecified site (4) Cellulitis of back [any part except buttock] Current visit: Yes Status: Acute Category: Medical Code(s): L03.312 - Cellulitis of back [any part except buttock] (5) Acute delirium Current visit: Yes Status: Acute Category: Medical Code(s): R41.0 - Disorientation, unspecified (6) Febrile illness, acute Current visit: Yes Status: Acute Category: Medical Code(s): R50.9 - Fever, unspecified (7) Left knee pain Current visit: No Status: Acute Qualifiers: Qualified Code(s): M25.562 - Pain in left knee; G89.29 - Other chronic pain Category: Medical Code(s): M25.562 - Pain in left knee (8) CRPS (complex regional pain syndrome type I) Current visit: No Status: Chronic Qualifiers: Qualified Code(s): G90.50 - Complex regional pain syndrome I, unspecified Category: Medical Code(s): G90.50 - Complex regional pain syndrome I, unspecified (9) Low back pain Current visit: No Status: Chronic Qualifiers: Qualified Code(s): M54.41 - Lumbago with sciatica, right side; M54.42 - Lumbago with sciatica, left side; G89.29 - Other chronic pain Category: Medical Code(s): M54.5 - Low back pain (10) Morbid obesity Current visit: Yes Status: Acute Category: Medical Code(s): E66.01 - Morbid (severe) obesity due to excess calories (11) Restless leg syndrome Current visit: No Status: Acute Category: Medical Code(s): G25.81 - Restless legs syndrome (12) Hip pain, bilateral Current visit: Yes Status: Acute Category: Medical Code(s): M25.551 - Pain in right hip; M25.552 - Pain in left hip (13) Decreased mobility Current visit: Yes Status: Acute Category: Medical Code(s): R26.89 - Other abnormalities of gait and mobility (14) Confusion Current visit: Yes Status: Acute Category: Medical Code(s): R41.0 - Disorientation, unspecified - Assessment and plan all Dx Assessment and Plan for all problems:: BASED ON PATIENT FACTORS AND VANCOMYCIN TROUGH LEVEL, RECOMMEND CONTINUING VANCOMYCIN 2250 MG IV Q18H. PHARMACY WILL CONTINUE TO MONITOR DAILY AND ADJUST APPROPRIATE.
== END 2018-06-03 12:06 | disposition swing bed (61) ==
LOC: ER 19:05 → 2ND 22:38
PROVIDERS: ADMIT Emergency Medicine; ATTEND Family Medicine

== ENCOUNTER 2018-06-03 12:13 | Inpatient (IN) ==
--- NOTE | 2018-06-03 16:49 | H&P/Discharge Summary ---
General - General Admission date:: 06/03/18 Discharge date: 06/03/18 (Discharge summary from acute care and history and physical for swing bed) *Admission Date: 06/03/18 *Chief complaint: pain *History of present illness: Mr Julio initially presented to the ER with uncontrollable pain and was not having any relief from the spinal stimulator that was put on by Dr. Lowry about a month prior to presentation. He was having a mild cough but nothing major. Family reported at times he was not making sense with conversations. He was admitted to our [facility] for delirium. Initial workup, done in ER was negative. After admission the patient had multiple delirious episodes due to uncontrolled pain. This was managed with Ativan and pain control. He did develop fevers and eventually was found to have post op wound infection at the site of his spinal stimulator with MRSA and staph epidermidis. Patient received Rocephin and vancomycin throughout his stay. His confusion and agitation gradually improved. He became more oriented and cooperative. He did have several falls when trying to get up by himself with negative x-rays. He did have a head CT ,chest x-ray, lumbar spine CT and hip x-rays which were all negative for acute findings. He had a PICC line inserted for ongoing administration of IV antibiotics. He began to eat well and he did work some with physical therapy. He was able to walk a few feet with a rolling walker with the assistance of physical therapy. Back pain did improve. He began to sit up in a chair and tolerated this well. For continuing physical therapy and ongoing IV antibiotic administration it was decided to move him from acute care to a swing bed. Patient was discharged in stable and satisfactory condition on 06/03/2018 to a swing bed. Cognition at this time was good. Rehab potential was fair. Prognosis was good. [facility] History Medical History: Reports:: BPH, Hyperlipidemia Denies:: Cancer, Diabetes Mellitus Type 1, Diabetes Mellitus Type 2, MRSA, Seizures Other Medical History: Reports: Arthritis, Other. Denies: Blood Transfusion Reaction Laterality Cases: Right: Carpal Tunnel Release Other Surgeries: Yes: Other Amputation: Yes (left hand) Fractures: No - *Social History Educational Level: Completed Grade School Smoking Status: Former smoker Tobacco Type: cigarettes #Yrs smoked (if former smoker): 10 Alcohol Intake: never Alcohol Intake Frequency:: other Occupational Status: retired, disabled Housing: house Household Members: spouse - Psychiatric History Expresses thoughts of harming self/others: None Suicide Plan Description: No Plan *Family Hx:: Diabetes, Hyperlipidemia, Hypertension Review of Systems - Constitutional Reports weakness - ENT Reports sinus pain - *Cardiovascular Denies chest pain, Denies shortness of breath - *Respiratory Denies chest congestion, Denies cough, Denies shortness of breath - *Gastrointestinal Denies constipation Comments: Wants to lose weight - *Genitourinary Denies difficulty urinating - *Musculoskeletal Reports joint pain, Reports back pain, Reports muscle weakness Comments: Has been working with physical therapy and is able to walk with a walker with assistance - *Neurologic Reports other visual disturbances Exam Vital signs and Labs for Last 24 Hours: Temp Pulse Resp BP Pulse Ox 97.6 F 73 18 147/75 H 94 L 06/03/18 08:00 06/03/18 08:17 06/03/18 08:17 06/03/18 08:00 06/03/18 08:17 I & O for Last 24 hours: Intake & Output 06/01/18 06/02/18 06/03/18 06/04/18 11:59 11:59 11:59 11:59 Intake Total 300 / 300 Balance 300 / 300 Weight 277 lb 2.007 oz - Constitutional no acute distress - *Routine Respiratory Exam Present: CTA bilaterally (Bilaterally A&P) - *Routine Cardiovascular Exam Present: RRR - *Routine Abdominal Exam Present: soft, normoactive bowel sounds. Absent: tenderness Comments: Large abdomen - *Routine Extremities Exam Present: edema (1+ to trace). Absent: calf tenderness - Routine Back/Spine/Pelvis Exam Back/Spine: Present: vertebral tenderness Comments: Back postoperative wound appears clean and healing. - *Routine Neurological Exam Present: alert, oriented X3 Hospital Course Hospital Course: During the acute care stay at [facility] patient gradually became more comfortable with less agitation and more cooperative with his care. Postoperative wound grew MRSA and patient continued with his Rocephin and vancomycin. He did begin to eat better and cooperate with physical therapy. He did have a couple of falls with negative x-rays of his hip and back. On 06/03/2018 patient was stable to be moved to a swing bed for ongoing rehab and IV antibiotic therapy. Condition at this time was stable and satisfactory. Rehab potential was felt to be fair. Cognition was much improved and was felt to be satisfactory. Prognosis is good. 05/31/18 06/01/18 06/02/18 06/03/18 11:59 11:59 11:59 11:59 Intake Total 1184 / 1184 1080 / 1080 840 / 840 720 / 720 Output Total 2950 / 2950 2600 / 2600 300 / 300 Balance -1766 / -1766 -1520 / -1520 540 / 540 720 / 720 Weight 285 lb 7 oz 284 lb 9 oz 277 lb 3 oz 277 lb 2 oz - Discharge Diagnosis (1) Abscess of back Status: Acute Problem details: Staph aureus and staph epidermidis are causitive agents (2) Surgical wound infection Status: Acute (3) MRSA (methicillin resistant Staphylococcus aureus) infection Status: Acute (4) Cellulitis of back [any part except buttock] Status: Acute (5) Acute delirium Status: Acute (6) Febrile illness, acute Status: Acute (7) Left knee pain Status: Acute (8) CRPS (complex regional pain syndrome type I) Status: Chronic (9) Low back pain Status: Chronic (10) Morbid obesity Status: Acute (11) Restless leg syndrome Status: Acute (12) Hip pain, bilateral Status: Acute (13) Decreased mobility Status: Acute (14) Confusion Status: Acute Discharge/Transfer (Swing Bed) - Plan of Care Resident has been informed of condition and prognosis?: Yes Mobility Status: ambulatory with assistance Goal of treatment:: Patient to return home to prior level of functioning Rehab Potential: Fair Mental Status: Oriented x 3 I concur with the most recent H&P: Yes Date of most recent H&P: 05/24/18 Results Completed studies during hospitalization [Text1]: Laboratory Tests 05/25/18 05/25/18 05/30/18 12:12 12:12 09:40 WBC RBC Hgb Hct MCV MCH MCHC RDW Plt Count MPV Neut % (Auto) Lymph % (Auto) [place] % (Auto) Eos % (Auto) Baso % (Auto) Neut # (Auto) Lymph # (Auto) [place] # (Auto) Eos # (Auto) Baso # (Auto) Sodium Potassium Chloride Carbon Dioxide Anion Gap BUN Creatinine Estimated Creat Clear Estimated GFR Est GFR ( Amer) Glucose Calcium 8.4 L Total Bilirubin 0.6 AST 34 ALT 33 Alkaline Phosphatase 75 Total Creatine Kinase 182 Total Protein 6.4 Albumin 2.9 L Globulin 3.5 H Albumin/Globulin Ratio 0.8 L Vitamin B12 296 TSH 1.98 05/31/18 05/31/18 06:05 06:05 WBC 5.5 RBC 3.17 L Hgb 11.0 L Hct 30.6 L MCV 96.6 H MCH 34.6 H MCHC 35.8 H RDW 13.1 Plt Count 171 MPV 8.5 Neut % (Auto) 70.5 Lymph % (Auto) 18.5 [place] % (Auto) 5.5 Eos % (Auto) 5.1 Baso % (Auto) 0.4 Neut # (Auto) 3.9 Lymph # (Auto) 1.0 [place] # (Auto) 0.3 Eos # (Auto) 0.3 Baso # (Auto) 0.0 Sodium 137 Potassium 4.1 Chloride 100 Carbon Dioxide 29 Anion Gap 12.1 BUN 13 Creatinine 1.01 Estimated Creat Clear 119 Estimated GFR 72 Est GFR ( Amer) 88 Glucose 109 H Calcium 8.7 Total Bilirubin AST ALT Alkaline Phosphatase Total Creatine Kinase Total Protein Albumin Globulin Albumin/Globulin Ratio Vitamin B12 TSH DS: Diagnosis - Discharge Diagnosis (1) Abdominal pain Status: Acute (2) Acute delirium Status: Acute (3) Cellulitis of back [any part except buttock] Status: Acute (4) Confusion Status: Acute (5) Decreased mobility Status: Acute (6) Febrile illness, acute Status: Acute (7) Hip pain, bilateral Status: Acute (8) Left knee pain Status: Acute (9) MRSA (methicillin resistant Staphylococcus aureus) infection Status: Acute (10) Morbid obesity Status: Acute (11) Restless leg syndrome Status: Acute (12) Surgical wound infection Status: Acute (13) CRPS (complex regional pain syndrome type I) Status: Chronic (14) Low back pain Status: Chronic (15) Neuropathy Status: Chronic Discharge Medications - Medications for Discharge Home Medication List at Discharge: No Action atorvastatin 10 mg tablet 10 mg PO HS cholecalciferol (vitamin D3) 1,000 unit capsule 1,000 unit PO DAILY gabapentin 300 mg capsule 600 mg PO TID cetirizine 10 mg chewable tablet 1 tab PO HS tab meloxicam 15 mg tablet 15 mg PO HS melatonin 5 mg capsule 10 mg PO HS magnesium 71.5 mg (magnesium chloride) tablet,delayed release 71.5 mg PO DA DIONISIO tab acetaminophen ER 650 mg tablet,extended release 650 mg PO Q4HP PRN PRN Reason: fever or pain ropinirole 4 mg tablet 4 mg PO BID 30 Days #30 Duloxetine HCl [Cymbalta] 60 mg PO DAILY Tamsulosin HCl [Flomax 0.4mg capsule] 0.4 mg PO HS Disposition Disposition: [facility]
--- NOTE | 2018-06-04 07:49 | Pharmacy Consult Notes ---
[facility] Pharm[facility] VTE Monitoring - Patient Demographics Admission date: 06/03/18 Report Date: 06/04/18 Time: 07:49 Allergies/Adverse Reactions: Patient Allergies No Known Allergies Allergy (Verified 05/23/18 23:16) Height: 1.78 m Weight: 125.758 kg - VTE Risk Was VTE Risk Assessment Performed: Yes VTE Score: 4 VTE Risk Level: Low Risk - Prophylaxis VTE Prophylaxis Ordered?: Yes Types of VTE Prophylaxis: TEDS Knee High, Pharmacological Location of Applied Device: Bilateral Lower Extremeties Pharmacologic Type: Enoxaparin - VTE Diagnosis Confirmed Treatment or plan recommended: Continue Current Treatment
--- NOTE | 2018-06-04 08:18 | Progress Note ---
<Leola Light - Last Filed: 06/04/18 08:16> Internal Medicine - PN: Subj *Date: 06/04/18 *Time: 08:16 Interval history: Patient states he is feeling much better today. He worked with PT yesterday and walked all the way around the second floor. He states he has pain at night and pain medication does help. He states his breathing is much better today. He slept well last night and ate well this morning. Exam Vital signs and Labs for Last 24 Hours: Temp Pulse Resp BP Pulse Ox 98.0 F 72 17 115/55 L 97 06/04/18 08:00 06/04/18 08:00 06/04/18 08:00 06/04/18 08:00 06/04/18 08:00 I & O for Last 24 hours: Intake & Output 06/01/18 06/02/18 06/03/18 06/04/18 11:59 11:59 11:59 11:59 Intake Total 660 / 660 Balance 660 / 660 Weight 277 lb 4 oz - Constitutional no acute distress - *Routine Respiratory Exam Present: CTA bilaterally - *Routine Cardiovascular Exam Present: RRR - *Routine Abdominal Exam Present: soft, normoactive bowel sounds. Absent: tenderness - *Routine Extremities Exam Absent: cyanosis, clubbing, edema Assessment and Plan (1) Abdominal pain Current visit: No Status: Acute Qualifiers: Abdominal location: right lower quadrant Qualified Code(s): R10.31 - Right lower quadrant pain Category: Medical Code(s): R10.9 - Unspecified abdominal pain (2) Acute delirium Current visit: No Status: Acute Category: Medical Code(s): R41.0 - Disorientation, unspecified (3) Cellulitis of back [any part except buttock] Current visit: No Status: Acute Category: Medical Code(s): L03.312 - Cellulitis of back [any part except buttock] (4) Confusion Current visit: No Status: Acute Category: Medical Code(s): R41.0 - Disorientation, unspecified (5) Decreased mobility Current visit: No Status: Acute Category: Medical Code(s): R26.89 - Other abnormalities of gait and mobility (6) Febrile illness, acute Current visit: No Status: Acute Category: Medical Code(s): R50.9 - Fever, unspecified (7) Hip pain, bilateral Current visit: No Status: Acute Category: Medical Code(s): M25.551 - Pain in right hip; M25.552 - Pain in left hip (8) Left knee pain Current visit: No Status: Acute Qualifiers: Chronicity: chronic Qualified Code(s): M25.562 - Pain in left knee; G89.29 - Other chronic pain Category: Medical Code(s): M25.562 - Pain in left knee (9) MRSA (methicillin resistant Staphylococcus aureus) infection Current visit: No Status: Acute Category: Medical Code(s): A49.02 - Methicillin resistant Staphylococcus aureus infection, unspecified site (10) Morbid obesity Current visit: No Status: Acute Category: Medical Code(s): E66.01 - Morbid (severe) obesity due to excess calories (11) Restless leg syndrome Current visit: No Status: Acute Category: Medical Code(s): G25.81 - Restless legs syndrome (12) Surgical wound infection Current visit: No Status: Acute Category: Medical Code(s): T81.49XA - Infection following a procedure, other surgical site, initial encounter (13) CRPS (complex regional pain syndrome type I) Current visit: No Status: Chronic Qualifiers: Complex regional pain syndrome affected site: unspecified Qualified Code(s): G90.50 - Complex regional pain syndrome I, unspecified Category: Medical Code(s): G90.50 - Complex regional pain syndrome I, unspecified (14) Low back pain Current visit: No Status: Chronic Qualifiers: Chronicity: chronic Back pain laterality: midline Sciatica presence: with sciatica Sciatica laterality: bilateral sciatica Qualified Code(s): M54.41 - Lumbago with sciatica, right side; M54.42 - Lumbago with sciatica, left side; G89.29 - Other chronic pain Category: Medical Code(s): M54.5 - Low back pain (15) Neuropathy Current visit: No Status: Chronic Category: Medical Code(s): G62.9 - Polyneuropathy, unspecified - Assessment and plan all Dx Assessment and Plan for all problems:: Will continue abx and rehab. <Darren Dowd - Last Filed: 06/04/18 08:57> Exam Vital signs and Labs for Last 24 Hours: Temp Pulse Resp BP Pulse Ox 98.0 F 72 17 115/55 L 97 06/04/18 08:00 06/04/18 08:00 06/04/18 08:00 06/04/18 08:00 06/04/18 08:00 I & O for Last 24 hours: Intake & Output 06/01/18 06/02/18 06/03/18 06/04/18 11:59 11:59 11:59 11:59 Intake Total 660 / 660 Balance 660 / 660 Weight 277 lb 4 oz Assessment and Plan (1) Abdominal pain Current visit: No Status: Acute Qualifiers: Abdominal location: right lower quadrant Qualified Code(s): R10.31 - Right lower quadrant pain Category: Medical Code(s): R10.9 - Unspecified abdominal pain (2) Acute delirium Current visit: No Status: Acute Category: Medical Code(s): R41.0 - Disorientation, unspecified (3) Cellulitis of back [any part except buttock] Current visit: No Status: Acute Category: Medical Code(s): L03.312 - Cellulitis of back [any part except buttock] (4) Confusion Current visit: No Status: Acute Category: Medical Code(s): R41.0 - Disorientation, unspecified (5) Decreased mobility Current visit: No Status: Acute Category: Medical Code(s): R26.89 - Other abnormalities of gait and mobility (6) Febrile illness, acute Current visit: No Status: Acute Category: Medical Code(s): R50.9 - Fever, unspecified (7) Hip pain, bilateral Current visit: No Status: Acute Category: Medical Code(s): M25.551 - Pain in right hip; M25.552 - Pain in left hip (8) Left knee pain Current visit: No Status: Acute Qualifiers: Chronicity: chronic Qualified Code(s): M25.562 - Pain in left knee; G89.29 - Other chronic pain Category: Medical Code(s): M25.562 - Pain in left knee (9) MRSA (methicillin resistant Staphylococcus aureus) infection Current visit: No Status: Acute Category: Medical Code(s): A49.02 - Methicillin resistant Staphylococcus aureus infection, unspecified site (10) Morbid obesity Current visit: No Status: Acute Category: Medical Code(s): E66.01 - Morbid (severe) obesity due to excess calories (11) Restless leg syndrome Current visit: No Status: Acute Category: Medical Code(s): G25.81 - Restless legs syndrome (12) Surgical wound infection Current visit: No Status: Acute Category: Medical Code(s): T81.49XA - Infection following a procedure, other surgical site, initial encounter (13) CRPS (complex regional pain syndrome type I) Current visit: No Status: Chronic Qualifiers: Complex regional pain syndrome affected site: unspecified Qualified Code(s): G90.50 - Complex regional pain syndrome I, unspecified Category: Medical Code(s): G90.50 - Complex regional pain syndrome I, unspecified (14) Low back pain Current visit: No Status: Chronic Qualifiers: Chronicity: chronic Back pain laterality: midline Sciatica presence: with sciatica Sciatica laterality: bilateral sciatica Qualified Code(s): M54.41 - Lumbago with sciatica, right side; M54.42 - Lumbago with sciatica, left side; G89.29 - Other chronic pain Category: Medical Code(s): M54.5 - Low back pain (15) Neuropathy Current visit: No Status: Chronic Category: Medical Code(s): G62.9 - Polyneuropathy, unspecified - Assessment and plan all Dx Assessment and Plan for all problems:: Saw patient, agree with above note.
--- NOTE | 2018-06-06 08:14 | Progress Note ---
<Leola Light - Last Filed: 06/06/18 08:11> Internal Medicine - PN: Subj *Date: 06/06/18 *Time: 08:11 Interval history: Pt states he feels great today. He has been up and walking around. He is eating well and sleeping well. Exam Vital signs and Labs for Last 24 Hours: Temp Pulse Resp BP Pulse Ox 98.6 F 70 20 128/58 L 96 06/05/18 20:00 06/05/18 20:00 06/05/18 20:00 06/05/18 20:00 06/06/18 00:00 I & O for Last 24 hours: Intake & Output 06/03/18 06/04/18 06/05/18 06/06/18 11:59 11:59 11:59 11:59 Intake Total 660 / 660 1280 / 1280 820 / 820 Balance 660 / 660 1280 / 1280 820 / 820 Weight 277 lb 4 oz 277 lb 3.983 oz - Constitutional no acute distress - *Routine Respiratory Exam Present: CTA bilaterally - *Routine Cardiovascular Exam Present: RRR - *Routine Abdominal Exam Present: soft, normoactive bowel sounds. Absent: tenderness - *Routine Extremities Exam Absent: cyanosis, clubbing, edema Assessment and Plan (1) Abdominal pain Current visit: No Status: Acute Qualifiers: Abdominal location: right lower quadrant Qualified Code(s): R10.31 - Right lower quadrant pain Category: Medical Code(s): R10.9 - Unspecified abdominal pain (2) Acute delirium Current visit: No Status: Acute Category: Medical Code(s): R41.0 - Disorientation, unspecified (3) Cellulitis of back [any part except buttock] Current visit: No Status: Acute Category: Medical Code(s): L03.312 - Cellulitis of back [any part except buttock] (4) Confusion Current visit: No Status: Acute Category: Medical Code(s): R41.0 - Disorientation, unspecified (5) Decreased mobility Current visit: No Status: Acute Category: Medical Code(s): R26.89 - Other abnormalities of gait and mobility (6) Febrile illness, acute Current visit: No Status: Acute Category: Medical Code(s): R50.9 - Fever, unspecified (7) Hip pain, bilateral Current visit: No Status: Acute Category: Medical Code(s): M25.551 - Pain in right hip; M25.552 - Pain in left hip (8) Left knee pain Current visit: No Status: Acute Qualifiers: Chronicity: chronic Qualified Code(s): M25.562 - Pain in left knee; G89.29 - Other chronic pain Category: Medical Code(s): M25.562 - Pain in left knee (9) MRSA (methicillin resistant Staphylococcus aureus) infection Current visit: No Status: Acute Category: Medical Code(s): A49.02 - Methicillin resistant Staphylococcus aureus infection, unspecified site (10) Morbid obesity Current visit: No Status: Acute Category: Medical Code(s): E66.01 - Morbid (severe) obesity due to excess calories (11) Restless leg syndrome Current visit: No Status: Acute Category: Medical Code(s): G25.81 - Restless legs syndrome (12) Surgical wound infection Current visit: No Status: Acute Category: Medical Code(s): T81.49XA - Infection following a procedure, other surgical site, initial encounter (13) CRPS (complex regional pain syndrome type I) Current visit: No Status: Chronic Qualifiers: Complex regional pain syndrome affected site: unspecified Qualified Code(s): G90.50 - Complex regional pain syndrome I, unspecified Category: Medical Code(s): G90.50 - Complex regional pain syndrome I, unspecified (14) Low back pain Current visit: No Status: Chronic Qualifiers: Chronicity: chronic Back pain laterality: midline Sciatica presence: with sciatica Sciatica laterality: bilateral sciatica Qualified Code(s): M54.41 - Lumbago with sciatica, right side; M54.42 - Lumbago with sciatica, left side; G89.29 - Other chronic pain Category: Medical Code(s): M54.5 - Low back pain (15) Neuropathy Current visit: No Status: Chronic Category: Medical Code(s): G62.9 - Polyneuropathy, unspecified - Assessment and plan all Dx Assessment and Plan for all problems:: Will continue abx and rehab. <Darren Dowd - Last Filed: 06/06/18 09:04> Exam Vital signs and Labs for Last 24 Hours: Temp Pulse Resp BP Pulse Ox 98.6 F 70 20 128/58 L 96 06/05/18 20:00 06/05/18 20:00 06/05/18 20:00 06/05/18 20:00 06/06/18 00:00 I & O for Last 24 hours: Intake & Output 06/03/18 06/04/18 06/05/18 06/06/18 11:59 11:59 11:59 11:59 Intake Total 660 / 660 1280 / 1280 820 / 820 Balance 660 / 660 1280 / 1280 820 / 820 Weight 277 lb 4 oz 277 lb 3.983 oz Assessment and Plan (1) Abdominal pain Current visit: No Status: Acute Qualifiers: Abdominal location: right lower quadrant Qualified Code(s): R10.31 - Right lower quadrant pain Category: Medical Code(s): R10.9 - Unspecified abdominal pain (2) Acute delirium Current visit: No Status: Acute Category: Medical Code(s): R41.0 - Disorientation, unspecified (3) Cellulitis of back [any part except buttock] Current visit: No Status: Acute Category: Medical Code(s): L03.312 - Cellulitis of back [any part except buttock] (4) Confusion Current visit: No Status: Acute Category: Medical Code(s): R41.0 - Disorientation, unspecified (5) Decreased mobility Current visit: No Status: Acute Category: Medical Code(s): R26.89 - Other abnormalities of gait and mobility (6) Febrile illness, acute Current visit: No Status: Acute Category: Medical Code(s): R50.9 - Fever, unspecified (7) Hip pain, bilateral Current visit: No Status: Acute Category: Medical Code(s): M25.551 - Pain in right hip; M25.552 - Pain in left hip (8) Left knee pain Current visit: No Status: Acute Qualifiers: Chronicity: chronic Qualified Code(s): M25.562 - Pain in left knee; G89.29 - Other chronic pain Category: Medical Code(s): M25.562 - Pain in left knee (9) MRSA (methicillin resistant Staphylococcus aureus) infection Current visit: No Status: Acute Category: Medical Code(s): A49.02 - Methicillin resistant Staphylococcus aureus infection, unspecified site (10) Morbid obesity Current visit: No Status: Acute Category: Medical Code(s): E66.01 - Morbid (severe) obesity due to excess calories (11) Restless leg syndrome Current visit: No Status: Acute Category: Medical Code(s): G25.81 - Restless legs syndrome (12) Surgical wound infection Current visit: No Status: Acute Category: Medical Code(s): T81.49XA - Infection following a procedure, other surgical site, initial encounter (13) CRPS (complex regional pain syndrome type I) Current visit: No Status: Chronic Qualifiers: Complex regional pain syndrome affected site: unspecified Qualified Code(s): G90.50 - Complex regional pain syndrome I, unspecified Category: Medical Code(s): G90.50 - Complex regional pain syndrome I, unspecified (14) Low back pain Current visit: No Status: Chronic Qualifiers: Chronicity: chronic Back pain laterality: midline Sciatica presence: with sciatica Sciatica laterality: bilateral sciatica Qualified Code(s): M54.41 - Lumbago with sciatica, right side; M54.42 - Lumbago with sciatica, left side; G89.29 - Other chronic pain Category: Medical Code(s): M54.5 - Low back pain (15) Neuropathy Current visit: No Status: Chronic Category: Medical Code(s): G62.9 - Polyneuropathy, unspecified - Assessment and plan all Dx Assessment and Plan for all problems:: Saw patient, agree with above note.
[2018-06-08 09:04] LABS: Basophils # 0.1 K/mm3 (0-0.2); Basophils % 0.8 % (0.1-2.0); Eosinophils # 0.3 K/mm3 (0.0-0.4); Eosinophils % 3.4 % (0.1-12.0); Hematocrit 36.3 % (42.0-52.0); Hemoglobin 12.1 g/dL (14.1-18.0); Lymphocytes # 1.3 K/mm3 (0.7-4.5); Mean Corpuscular HGB Conc 33.4 g/dL (31.8-35.4); Mean Corpuscular Volume 95.9 fl (80-94); Mean Platelet Volume 8.4 fl (7.4-10.4); Monocytes # 0.5 K/mm3 (0.1-1.0); Monocytes % 6.5 % (1.7-9.3); Neutrophils # 5.5 K/mm3 (1.8-7.8); Neutrophils % 72.4 % (37.0-80.0); Platelet Count 191 K/mm3 (142-424); Red Blood Count 3.78 M/mm3 (4.60-6.20); Red Cell Distribution Width 12.7 % (11.5-17.5); White Blood Count 7.6 K/mm3 (4.8-10.8)
[2018-06-08 09:15] LABS: Anion Gap 17.2 mEq/L (5-15); Calcium 9.3 mg/dL (8.5-10.1); Potassium 5.2 mmoL/L (3.5-5.1)
--- NOTE | 2018-06-08 09:21 | Pharmacy Consult Notes ---
- Pharmacy Consult Date: 06/08/18 Time: 09:17 Referring provider: DR. SANDERSON Reason for Consult:: VANCOMYCIN TROUGH LEVEL AND DOSE HOLD Allergies and ADEs:: Allergies Allergy/AdvReac Type Severity Reaction Status Date / Time No Known Allergies Allergy Verified 05/23/18 23:16 Home Medications:: Home Medications Medication Instructions Recorded Confirmed Type acetaminophen ER 650 mg 650 mg PO Q4HP PRN 08/15/17 06/03/18 History tablet,extended release atorvastatin 10 mg tablet 10 mg PO HS 08/15/17 06/03/18 History cetirizine 10 mg chewable tablet 1 tab PO HS tab 08/15/17 06/03/18 History cholecalciferol (vitamin D3) 1,000 1,000 unit PO DAILY 08/15/17 06/03/18 History unit capsule gabapentin 300 mg capsule 600 mg PO TID 08/15/17 06/03/18 History magnesium 71.5 mg (magnesium 71.5 mg PO DAILY tab 08/15/17 06/03/18 History chloride) tablet,delayed release melatonin 5 mg capsule 10 mg PO HS 08/15/17 06/03/18 History meloxicam 15 mg tablet 15 mg PO HS 08/15/17 06/03/18 History ropinirole 4 mg tablet 4 mg PO BID 30 Days #30 02/24/18 06/03/18 History Duloxetine HCl [Cymbalta] 60 mg PO DAILY 04/30/18 06/03/18 History Tamsulosin HCl [Flomax 0.4mg 0.4 mg PO HS 05/24/18 06/03/18 History capsule] Height: 1.78 m Weight: 127.545 kg Laboratory Results:: Laboratory Results - last 24 hr 06/07/18 22:10: Vancomycin Trough 50.8 H* 06/08/18 06:00: Vancomycin Trough 47.7 H* 06/08/18 06:00: WBC 7.6, RBC 3.78 L, Hgb 12.1 L, Hct 36.3 L, MCV 95.9 H, MCH 32.0 H, MCHC 33.4, RDW 12.7, Plt Count 191, MPV 8.4, Neut % (Auto) 72.4, Lymph % (Auto) 17.0, [place] % (Auto) 6.5, Eos % (Auto) 3.4, Baso % (Auto) 0.8, Neut # (Auto) 5.5, Lymph # (Auto) 1.3, [place] # (Auto) 0.5, Eos # (Auto) 0.3, Baso # (Auto) 0.1 Medical History: Reports:: BPH, Hyperlipidemia Denies:: Cancer, Diabetes Mellitus Type 1, Diabetes Mellitus Type 2, MRSA, Seizures Assessment and Plan (1) Abdominal pain Current visit: No Status: Acute Qualifiers: Abdominal location: right lower quadrant Qualified Code(s): R10.31 - Right lower quadrant pain Category: Medical Code(s): R10.9 - Unspecified abdominal pain (2) Acute delirium Current visit: No Status: Acute Category: Medical Code(s): R41.0 - Disorientation, unspecified (3) Cellulitis of back [any part except buttock] Current visit: No Status: Acute Category: Medical Code(s): L03.312 - Cellulitis of back [any part except buttock] (4) Confusion Current visit: No Status: Acute Category: Medical Code(s): R41.0 - Disorientation, unspecified (5) Decreased mobility Current visit: No Status: Acute Category: Medical Code(s): R26.89 - Other abnormalities of gait and mobility (6) Febrile illness, acute Current visit: No Status: Acute Category: Medical Code(s): R50.9 - Fever, unspecified (7) Hip pain, bilateral Current visit: No Status: Acute Category: Medical Code(s): M25.551 - Pain in right hip; M25.552 - Pain in left hip (8) Left knee pain Current visit: No Status: Acute Qualifiers: Chronicity: chronic Qualified Code(s): M25.562 - Pain in left knee; G89.29 - Other chronic pain Category: Medical Code(s): M25.562 - Pain in left knee (9) MRSA (methicillin resistant Staphylococcus aureus) infection Current visit: No Status: Acute Category: Medical Code(s): A49.02 - Methicillin resistant Staphylococcus aureus infection, unspecified site (10) Morbid obesity Current visit: No Status: Acute Category: Medical Code(s): E66.01 - Morbid (severe) obesity due to excess calories (11) Restless leg syndrome Current visit: No Status: Acute Category: Medical Code(s): G25.81 - Restless legs syndrome (12) Surgical wound infection Current visit: No Status: Acute Category: Medical Code(s): T81.49XA - Infection following a procedure, other surgical site, initial encounter (13) CRPS (complex regional pain syndrome type I) Current visit: No Status: Chronic Qualifiers: Complex regional pain syndrome affected site: unspecified Qualified Code(s): G90.50 - Complex regional pain syndrome I, unspecified Category: Medical Code(s): G90.50 - Complex regional pain syndrome I, unspecified (14) Low back pain Current visit: No Status: Chronic Qualifiers: Chronicity: chronic Back pain laterality: midline Sciatica presence: with sciatica Sciatica laterality: bilateral sciatica Qualified Code(s): M54.41 - Lumbago with sciatica, right side; M54.42 - Lumbago with sciatica, left side; G89.29 - Other chronic pain Category: Medical Code(s): M54.5 - Low back pain (15) Neuropathy Current visit: No Status: Chronic Category: Medical Code(s): G62.9 - Polyneuropathy, unspecified - Assessment and plan all Dx Assessment and Plan for all problems:: PATIENT'S VANCOMYCIN TROUGH RETURNED LAST NIGHT AT 2210 WITH A RESULT OF 50.8. DOSE WAS HELD AND ANOTHER TROUGH WAS OBTAINED THIS MORNING AT 0600 WITH A RESULT OF 47.7. TROUGH LEVEL HAS BEEN ORDERED AFTER 24 HOURS WELL A BMP/CBC. VANCOMYCIN WILL BE HELD UNTIL TROUGH LEVEL IS AT AN ACCEPTABLE LEVEL. PHARMACY WILL CONTINUE TO CLOSELY MONITOR. -LUZ CASON PHARMD
[2018-06-08 11:14] LABS: Calcium 9.2 mg/dL (8.5-10.1)
[2018-06-09 07:17] LABS: Anion Gap 11.9 mEq/L (5-15); Calcium 8.9 mg/dL (8.5-10.1); Potassium 4.9 mmoL/L (3.5-5.1)
[2018-06-09 07:34] LABS: Vancomycin,Trough 29.9 mcg/ml (10.0-20.0)
--- NOTE | 2018-06-09 08:54 | Progress Note ---
Internal Medicine - PN: Subj *Date: 06/09/18 *Time: 08:51 Interval history: Patient with no new complaints, wants to go home. He got 2 liters of IVF yesterday due to elevated creatinine. Exam Vital signs and Labs for Last 24 Hours: Temp Pulse Resp BP Pulse Ox 98.4 F 74 18 121/62 96 06/09/18 07:24 06/09/18 07:24 06/09/18 07:24 06/09/18 07:24 06/09/18 07:24 Laboratory Results - last 24 hr 06/08/18 06:00: WBC 7.6, RBC 3.78 L, Hgb 12.1 L, Hct 36.3 L, MCV 95.9 H, MCH 32.0 H, MCHC 33.4, RDW 12.7, Plt Count 191, MPV 8.4, Neut % (Auto) 72.4, Lymph % (Auto) 17.0, [place] % (Auto) 6.5, Eos % (Auto) 3.4, Baso % (Auto) 0.8, Neut # (Auto) 5.5, Lymph # (Auto) 1.3, [place] # (Auto) 0.5, Eos # (Auto) 0.3, Baso # (Auto) 0.1 06/08/18 06:00: Sodium 138, Potassium 5.2 H, Chloride 99, Carbon Dioxide 27, Anion Gap 17.2 H, BUN 43 H, Creatinine 2.69 H, Estimated Creat Clear 44, Estimated GFR 23 L, Est GFR ( Amer) 28 L, Glucose 97, Calcium 9.3 06/08/18 10:35: Sodium 137, Potassium 5.0, Chloride 100, Carbon Dioxide 28, Anion Gap 14.0, BUN 43 H, Creatinine 2.73 H, Estimated Creat Clear 43, Estimated GFR 23 L, Est GFR ( Amer) 28 L, Glucose 98, Calcium 9.2 06/09/18 06:00: Sodium 136, Potassium 4.9, Chloride 100, Carbon Dioxide 29, Anion Gap 11.9, BUN 40 H, Creatinine 2.39 H, Estimated Creat Clear 50, Estimated GFR 27 L, Est GFR ( Amer) 32 L, Glucose 81, Calcium 8.9, Vancomycin Trough 29.9 H I & O for Last 24 hours: Intake & Output 06/06/18 06/07/18 06/08/18 06/09/18 11:59 11:59 11:59 11:59 Intake Total 1300 / 1300 990 / 990 850 / 850 2360 / 2360 Balance 1300 / 1300 990 / 990 850 / 850 2360 / 2360 Weight 278 lb 7 oz 281 lb 3 oz 281 lb 9 oz - Constitutional no acute distress - *Routine HEENT Exam Head: Present: normocephalic Eye: Present: EOMI, PERRL ENT: Present: mucous membranes moist - *Routine Neck Exam Present: supple. Absent: lymphadenopathy - *Routine Respiratory Exam Present: CTA bilaterally - *Routine Cardiovascular Exam Present: RRR - *Routine Abdominal Exam Present: soft, normoactive bowel sounds. Absent: tenderness - *Routine Skin Exam Present: warm. Absent: rash Comments: All skin redness has resolved around the low back surgical wound - *Routine Neurological Exam Present: alert, oriented X3 Assessment and Plan (1) Abdominal pain Current visit: No Status: Resolved Qualifiers: Abdominal location: right lower quadrant Qualified Code(s): R10.31 - Right lower quadrant pain Category: Medical Code(s): R10.9 - Unspecified abdominal pain (2) Acute delirium Current visit: No Status: Acute Category: Medical Code(s): R41.0 - Disorientation, unspecified (3) Cellulitis of back [any part except buttock] Current visit: No Status: Acute Category: Medical Code(s): L03.312 - Cellulitis of back [any part except buttock] (4) Confusion Current visit: No Status: Acute Category: Medical Code(s): R41.0 - Disorientation, unspecified (5) Decreased mobility Current visit: No Status: Acute Category: Medical Code(s): R26.89 - Other abnormalities of gait and mobility (6) Febrile illness, acute Current visit: No Status: Acute Category: Medical Code(s): R50.9 - Fever, unspecified (7) Hip pain, bilateral Current visit: No Status: Acute Category: Medical Code(s): M25.551 - Pain in right hip; M25.552 - Pain in left hip (8) Left knee pain Current visit: No Status: Acute Qualifiers: Chronicity: chronic Qualified Code(s): M25.562 - Pain in left knee; G89.29 - Other chronic pain Category: Medical Code(s): M25.562 - Pain in left knee (9) MRSA (methicillin resistant Staphylococcus aureus) infection Current visit: No Status: Acute Category: Medical Code(s): A49.02 - Methicillin resistant Staphylococcus aureus infection, unspecified site (10) Morbid obesity Current visit: No Status: Acute Category: Medical Code(s): E66.01 - Morbid (severe) obesity due to excess calories (11) Restless leg syndrome Current visit: No Status: Acute Category: Medical Code(s): G25.81 - Restless legs syndrome (12) Surgical wound infection Current visit: No Status: Acute Category: Medical Code(s): T81.49XA - Infection following a procedure, other surgical site, initial encounter (13) CRPS (complex regional pain syndrome type I) Current visit: No Status: Chronic Qualifiers: Complex regional pain syndrome affected site: unspecified Qualified Code(s): G90.50 - Complex regional pain syndrome I, unspecified Category: Medical Code(s): G90.50 - Complex regional pain syndrome I, unspecified (14) Low back pain Current visit: No Status: Chronic Qualifiers: Chronicity: chronic Back pain laterality: midline Sciatica presence: with sciatica Sciatica laterality: bilateral sciatica Qualified Code(s): M54.41 - Lumbago with sciatica, right side; M54.42 - Lumbago with sciatica, left side; G89.29 - Other chronic pain Category: Medical Code(s): M54.5 - Low back pain (15) Neuropathy Current visit: No Status: Chronic Category: Medical Code(s): G62.9 - Polyneuropathy, unspecified (16) Renal insufficiency Current visit: Yes Status: Acute Category: Medical Code(s): N28.9 - Disorder of kidney and ureter, unspecified - Assessment and plan all Dx Assessment and Plan for all problems:: Plan discharge home today, remove PICC line prior to discharge, f/u in office on 06/18/18.
--- NOTE | 2018-06-09 15:47 | Discharge Summary ---
General - General Admission date:: 06/03/18 Discharge date: 06/09/18 HPI HPI: Mr Julio initially presented to the ER with uncontrollable pain and was not having any relief from the spinal stimulator that was put on by Dr. Chahal about a month prior to presentation. He was having a mild cough but nothing major. Family reported at times he was not making sense with conversations. He was admitted to [facility] for delirium. Initial workup, done in ER was negative. After admission the patient had multiple delirious episodes due to uncontrolled pain. This was managed with Ativan and pain control. He did develop fevers and eventually was found to have post op wound infection at the site of his spinal stimulator with MRSA and staph epidermidis. Patient received Rocephin and vancomycin throughout his stay. His confusion and agitation gradually improved. He became more oriented and cooperative. He did have several falls when trying to get up by himself with negative x-rays. He did have a head CT ,chest x-ray, lumbar spine CT and hip x-rays which were all negative for acute findings. He had a PICC line inserted for ongoing administration of IV antibiotics. He began to eat well and he did work some with physical therapy. He was able to walk a few feet with a rolling walker with the assistance of physical therapy. Back pain did improve. He began to sit up in a chair and tolerated this well. For continuing physical therapy and ongoing IV antibiotic administration it was decided to move him from acute care to a swing bed. Patient was discharged in stable and satisfactory condition on 06/03/2018 to a swing bed. Cognition at this time was good. Rehab potential was fair. Prognosis was good. Hospital Course Hospital Course: On 06/03/2018 the patient was stable to be moved to a swing bed for ongoing rehab and IV antibiotic therapy. He worked well with PT and was able to walk laps around the 2nd floor. He was eating and sleeping well. He did have to get 2 liters of IVF's due to an elevated creatinine. His PICC line was removed and he was stable to be discharged home with a f/u in the office of [facility]. Objective Vital signs: Temp Pulse Resp BP Pulse Ox 98.4 F 74 18 121/62 96 06/09/18 07:24 06/09/18 07:24 06/09/18 07:24 06/09/18 07:24 06/09/18 07:24 Narrative: - Constitutional no acute distress - *Routine Respiratory Exam Present: CTA bilaterally (Bilaterally A&P) - *Routine Cardiovascular Exam Present: RRR - *Routine Abdominal Exam Present: soft, normoactive bowel sounds. Absent: tenderness Comments: Large abdomen - *Routine Extremities Exam Present: edema (1+ to trace). Absent: calf tenderness - Routine Back/Spine/Pelvis Exam Back/Spine: Present: vertebral tenderness Comments: Back postoperative wound appears clean and healing. - *Routine Neurological Exam Present: alert, oriented X3 Results Labs on day of discharge: Labs from last 24 hours 06/09/18 06:00 Sodium 136 Potassium 4.9 Chloride 100 Carbon Dioxide 29 Anion Gap 11.9 BUN 40 H Creatinine 2.39 H Estimated Creat Clear 50 Estimated GFR 27 L Est GFR ( Amer) 32 L Glucose 81 Calcium 8.9 Vancomycin Trough 29.9 H DS: Diagnosis - Discharge Diagnosis (1) Abdominal pain Status: Resolved (2) Acute delirium Status: Acute (3) Cellulitis of back [any part except buttock] Status: Acute (4) Confusion Status: Acute (5) Decreased mobility Status: Acute (6) Febrile illness, acute Status: Acute (7) Hip pain, bilateral Status: Acute (8) Left knee pain Status: Acute (9) MRSA (methicillin resistant Staphylococcus aureus) infection Status: Acute (10) Morbid obesity Status: Acute (11) Restless leg syndrome Status: Acute (12) Surgical wound infection Status: Acute (13) CRPS (complex regional pain syndrome type I) Status: Chronic (14) Low back pain Status: Chronic (15) Neuropathy Status: Chronic (16) Renal insufficiency Status: Acute Discharge Plan - Patient Discharge Instructions ACTIVITY: Continue current activity DIET: continue same diet Patient Instructions: Methicillin-Resistant Staph Infection, DI for Pneumonia -- Adult - Follow up Plan Follow up with: Darren Dowd MD [Primary Care Provider] - 06/18/18 Disposition: Home, Self-Custodial Medications: Home Medications Medication Instructions Recorded Confirmed Type acetaminophen ER 650 mg 650 mg PO Q4HP PRN 08/15/17 06/03/18 History tablet,extended release atorvastatin 10 mg tablet 10 mg PO HS 08/15/17 06/03/18 History cetirizine 10 mg chewable tablet 1 tab PO HS tab 08/15/17 06/03/18 History cholecalciferol (vitamin D3) 1,000 1,000 unit PO DAILY 08/15/17 06/03/18 History unit capsule gabapentin 300 mg capsule 600 mg PO TID 08/15/17 06/03/18 History magnesium 71.5 mg (magnesium 71.5 mg PO DAILY tab 08/15/17 06/03/18 History chloride) tablet,delayed release melatonin 5 mg capsule 10 mg PO HS 08/15/17 06/03/18 History meloxicam 15 mg tablet 15 mg PO HS 08/15/17 06/03/18 History ropinirole 4 mg tablet 4 mg PO BID 30 Days #30 02/24/18 06/03/18 History Duloxetine HCl [Cymbalta] 60 mg PO DAILY 04/30/18 06/03/18 History Tamsulosin HCl [Flomax 0.4mg 0.4 mg PO HS 05/24/18 06/03/18 History capsule] Prescriptions/Medication Reconciliation: Continue atorvastatin 10 mg tablet 10 mg PO HS cholecalciferol (vitamin D3) 1,000 unit capsule 1,000 unit PO DAILY gabapentin 300 mg capsule 600 mg PO TID cetirizine 10 mg chewable tablet 1 tab PO HS tab meloxicam 15 mg tablet 15 mg PO HS melatonin 5 mg capsule 10 mg PO HS magnesium 71.5 mg (magnesium chloride) tablet,delayed release 71.5 mg PO DAILY tab acetaminophen ER 650 mg tablet,extended release 650 mg PO Q4HP PRN PRN Reason: fever or pain ropinirole 4 mg tablet 4 mg PO BID 30 Days #30 Duloxetine HCl [Cymbalta] 60 mg PO DAILY Tamsulosin HCl [Flomax 0.4mg capsule] 0.4 mg PO HS
== END 2018-06-09 13:09 | disposition home or self-care (01) ==
LOC: 2ND 12:13
PROVIDERS: ADMIT Family Medicine; ATTEND Family Medicine
CPT/HCPCS: 36415; 80048; 80202; 85025; 97116; 97165; 97535; J3370

== ENCOUNTER 2018-06-17 09:06 | Outpatient (CLI) | payer MEDICARE, BC, SELFPAY ==
[2018-06-17 09:24] VITALS: BP 137/80; PULSE 72; RESP 18; O2SAT 98; BMI 38.7
--- NOTE | 2018-06-17 09:38 | HMH.PAINSOAP ---
[facility] Pain Management SOAP Note Subjective:: Patient is a pleasant 72-year-old white male who presents today for follow-up. Patient was admitted to the hospital after spinal cord stimulator implant with altered mental status and infection. Patient was treated by antibiotics. Patient states he is doing better at this time. He has a small amount of clear drainage at times. The site is looking well. Patient states he has been afebrile. Patient states his only issues at this time is in her ear vertigo. Patient would like to also speak about the vertiflex procedure. He rates pain a 5 out of 10 today. Patient states that his stimulator is being helpful for him. ROS General: no recent weight change, no fever, no sleep disturbances Respiratory: no cough, no shortness of air, no recurring pulmonary infections Cardiovascular/Peripheral Vascular: No chest pain, No palpitations, no edema, no shortness of breath. Gastrointestinal: no incontinence, normal bowel movements reported Genitourinary: no incontinence Musculoskeletal: Back pain, leg pain Psychiatric: normal mood/ affect Neurological: [denies weakness in extremities], [denies balance issues] Objective:: Physical Exam General: Alert and oriented x3, no acute distress, pleasant and cooperative, [on room air] Lungs: Resps E/U, Symmetrical chest expansion, Eyes: PERRL Musculoskeletal: Flexion and extension of lumbar spine somewhat guarded secondary to pain, deep tendon reflexes normal, strength in upper and lower extremities [5/5], slightly antalgic gait noted Neurological: speech clear, no gross sensory deficits Assessment:: Degenerative disc disease lumbar spine with lumbar radiculopathy symptoms Plan:: I will follow-up with the patient in 1 month. I discussed with the patient that we will not be able to proceed with a another procedure until we have clearance from this current infection. Patient states he is seeing his primary care physician today. I will follow-up with the patient in 1 month and reassess his symptoms at that time. This note was dictated using voice recognition software and may contain errors or omissions
[2018-06-17 11:16] VITALS: BMI 403419.4
[2018-06-17 11:42] LABS: Basophils # 0.1 K/mm3 (0-0.2); Eosinophils # 0.5 K/mm3 (0.0-0.4); Eosinophils % 7.7 % (0.1-12.0); Hematocrit 34.5 % (42.0-52.0); Hemoglobin 11.5 g/dL (14.1-18.0); Lymphocytes # 1.3 K/mm3 (0.7-4.5); Mean Corpuscular HGB Conc 33.2 g/dL (31.8-35.4); Mean Corpuscular Hemoglobin 31.8 pg (27.0-31.2); Mean Corpuscular Volume 95.6 fl (80-94); Mean Platelet Volume 8.7 fl (7.4-10.4); Monocytes # 0.4 K/mm3 (0.1-1.0); Monocytes % 6.6 % (1.7-9.3); Neutrophils # 3.7 K/mm3 (1.8-7.8); Neutrophils % 62.7 % (37.0-80.0); Platelet Count 131 K/mm3 (142-424); Red Blood Count 3.61 M/mm3 (4.60-6.20); Red Cell Distribution Width 13.3 % (11.5-17.5); White Blood Count 5.8 K/mm3 (4.8-10.8)
[2018-06-17 11:53] LABS: Alanine Aminotransferase 40 U/L (12-78); Albumin Level 3.6 gm/dL (3.4-5.0); Albumin/Globulin Ratio 0.8 (1.1-1.8); Alkaline Phosphatase 106 U/L (46-116); Anion Gap 12.5 mEq/L (5-15); Aspartate Amino Transferase 25 U/L (15-37); Bilirubin,Total 0.3 mg/dL (0.2-1.0); Blood Urea Nitrogen 41 mg/dL (7-18); Calcium 8.9 mg/dL (8.5-10.1); Carbon Dioxide 29 mmol/L (21.0-32.0); Chloride 105 mmol/L (98-107); Creatinine Clearance Estimated 66 mL/min (0-300); Creatinine,Serum 1.79 mg/dL (0.70-1.30); Estimated Glomerular Filt Rate 37 ml/min (>60); GFR (African American) 45 ML/MIN (>60); Globulin 4.3 gm/dl (1.3-3.2); Glucose 105 mg/dL (74-106); Potassium 5.5 mmoL/L (3.5-5.1); Sodium 141 mmol/L (136-145); Total Protein,Serum 7.9 gm/dL (6.4-8.2)
[2018-06-17 12:37] VITALS: BP 135/70; PULSE 68; RESP 20; TEMP 36.9; O2SAT 96
--- NOTE | 2018-06-17 13:06 | HMH.PHACONS ---
- Pharmacy Consult Date: 06/17/18 Time: 13:06 Referring provider: DR. SANDERSON Reason for Consult:: VANCOMYCIN DOSING Allergies and ADEs:: Allergies Allergy/AdvReac Type Severity Reaction Status Date / Time No Known Allergies Allergy Verified 05/23/18 23:16 Home Medications:: Home Medications Medication Instructions Recorded Confirmed Type acetaminophen ER 650 mg 650 mg PO Q4HP PRN 08/15/17 06/03/18 History tablet,extended release atorvastatin 10 mg tablet 10 mg PO HS 08/15/17 06/03/18 History cetirizine 10 mg chewable tablet 1 tab PO HS tab 08/15/17 06/03/18 History cholecalciferol (vitamin D3) 1,000 1,000 unit PO DAILY 08/15/17 06/03/18 History unit capsule gabapentin 300 mg capsule 600 mg PO TID 08/15/17 06/03/18 History magnesium 71.5 mg (magnesium 71.5 mg PO DAILY tab 08/15/17 06/03/18 History chloride) tablet,delayed release melatonin 5 mg capsule 10 mg PO HS 08/15/17 06/03/18 History meloxicam 15 mg tablet 15 mg PO HS 08/15/17 06/03/18 History ropinirole 4 mg tablet 4 mg PO BID 30 Days #30 02/24/18 06/03/18 History Duloxetine HCl [Cymbalta] 60 mg PO DAILY 04/30/18 06/03/18 History Tamsulosin HCl [Flomax 0.4mg 0.4 mg PO HS 05/24/18 06/03/18 History capsule] Height: 1.78 cm Weight: 127.545 kg Laboratory Results:: Laboratory Results - last 24 hr 06/17/18 11:33: WBC 5.8, RBC 3.61 L, Hgb 11.5 L, Hct 34.5 L, MCV 95.6 H, MCH 31.8 H, MCHC 33.2, RDW 13.3, Plt Count 131 L, MPV 8.7, Neut % (Auto) 62.7, Lymph % (Auto) 22.0, [place] % (Auto) 6.6, Eos % (Auto) 7.7, Baso % (Auto) 1.0, Neut # (Auto) 3.7, Lymph # (Auto) 1.3, [place] # (Auto) 0.4, Eos # (Auto) 0.5 H, Baso # (Auto) 0.1 06/17/18 11:33: Sodium 141, Potassium 5.5 H, Chloride 105, Carbon Dioxide 29, Anion Gap 12.5, BUN 41 H, Creatinine 1.79 H, Estimated Creat Clear 66, Estimated GFR 37 L, Est GFR ( Amer) 45 L, Glucose 105, Calcium 8.9, Total Bilirubin 0.3, AST 25, ALT 40, Alkaline Phosphatase 106, Total Protein 7.9, Albumin 3.6, Globulin 4.3 H, Albumin/Globulin Ratio 0.8 L Medical History: Reports:: BPH, Hyperlipidemia Denies:: Cancer, Diabetes Mellitus Type 1, Diabetes Mellitus Type 2, MRSA, Seizures Assessment and Plan - Assessment and plan all Dx Assessment and Plan for all problems:: BASED ON PATIENT FACTORS, RECOMMEND INITIATING VANCOMYCIN IV AT 1,750MG DAILY. PHARMACY WILL OBTAIN TROUGH AND BMP PRIOR TO FOURTH DOSE AND WILL ADJUST DOSE APPROPRIATE AT THAT POINT. -LUZ CASON PHARMD
[2018-06-17 13:10] VITALS: BP 145/70; PULSE 68; RESP 20; TEMP 36.9; O2SAT 96
[2018-06-17 14:00] VITALS: BP 134/74; PULSE 68; RESP 20; TEMP 36.9; O2SAT 96
[2018-06-17 14:30] VITALS: BP 138/74; PULSE 68; RESP 20; TEMP 36.9; O2SAT 96
--- NOTE | 2018-06-17 15:07 | XR_ITS ---
XR chest portable PICC plac HISTORY: ITS.REASON: PICC line placement ORDERING PHYSICIAN: Darren Dowd MD PATIENT AGE: 72 years COMPARISON: 06/02/2018 FINDINGS: Left upper extremity PICC line has been inserted. The tip is in good position in the region of the superior vena cava. Cardiovascular structures are unremarkable and the lungs are free of acute infiltrate. There is some irregular density in the left perihilar region nonspecific and could be due to some underlying atelectatic change which is developed versus overlying summation artifact. IMPRESSION: PICC line in good position. Irregular density left perihilar region nonspecific and may be due to atelectasis with summation density. Follow-up suggested Significant findings called to John on 06/17/2018 3:30 PM.
== END 2018-06-17 15:40 | disposition home or self-care (01) ==
PROVIDERS: PCP Family Medicine; Referring Provider Clinical Nurse Specialist Family Health; Visit Provider Family Medicine
DX: L03.312 Cellulitis of back [any part except buttock and flank] (principal); A49.02 Methicillin resistant Staphylococcus aureus infection, unspecified site
CPT/HCPCS: 36569; 71045; 80053; 85025; 96365; 96366; C1751; J3370

== ENCOUNTER 2018-06-18 10:50 | Outpatient (CLI) | payer MEDICARE, BC, SELFPAY ==
[2018-06-18 11:05] VITALS: BP 136/81; PULSE 59; RESP 18; TEMP 35.8; O2SAT 94
[2018-06-18 11:35] VITALS: BP 142/72; PULSE 62; RESP 18
[2018-06-18 12:05] VITALS: BP 125/71; PULSE 66; RESP 18
[2018-06-18 12:35] VITALS: BP 104/75; PULSE 70; RESP 18
[2018-06-18 13:05] VITALS: BP 135/77; PULSE 72; RESP 18
== END 2018-06-18 13:15 | disposition home or self-care (01) ==
LOC: INF 10:56
PROVIDERS: Visit Provider Family Medicine
DX: T81.49XA Infection following a procedure, other surgical site, initial encounter (principal); L03.312 Cellulitis of back [any part except buttock and flank]; A49.02 Methicillin resistant Staphylococcus aureus infection, unspecified site
CPT/HCPCS: 96365; 96366; J3370

== ENCOUNTER → 2018-07-11 08:24 | Outpatient (POV) | payer MEDICARE, BC, SELFPAY ==
[2018-07-11 08:38] VITALS: BP 173/73; PULSE 75; RESP 22; O2SAT 97; BMI 42.9
--- NOTE | 2018-07-11 09:12 | HMH.PAINSOAP ---
[facility] Pain Management SOAP Note Subjective:: This patient is a pleasant 72-year-old white male who we are treating for low back pain with lumbar radicular symptoms. He had a spinal cord stimulator implant several months ago. He has been hospitalized once for possible infection and drainage from the previous incision where his leads were placed. The drainage subsided he was placed on IV antibiotics. He did very well, however, drainage started back approximately a week ago despite being on IV antibiotics for several weeks. His incision does look worse today. It does not appear red however there is a area of swelling over the incision which is fluid-filled. Given the worsening symptoms with drainage and swelling over the incision site this patient needs incision and drainage to possibly salvage his spinal cord stimulator or complete explant if it looks like infection is spread. Objective:: Alert and oriented x3 no acute distress. Patient is afebrile patient does have an antalgic gait. Motor strength of the lower extremities is 5/5. There is no neurological changes. There is no other signs of infection including redness or fever. 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 We will do a I&D of the incision and possible salvage of a spinal cord stimulator system if the infection is superficial. If it looks like infection is spread then we will explant his entire system. He is also having some increased pain in his neck and arms at night. We will give him tramadol 50 mg at night to help him with his pain symptoms.
--- NOTE | 2018-07-11 09:16 | P.CONS_ITS ---
[facility] Pain Management SOAP Note Subjective:: This patient is a pleasant 72-year-old white male who we are treating for low back pain with lumbar radicular symptoms. He had a spinal cord stimulator implant several months ago. He has been hospitalized once for possible infection and drainage from the previous incision where his leads were placed. The drainage subsided he was placed on IV antibiotics. He did very well, however, drainage started back approximately a week ago despite being on IV antibiotics for several weeks. His incision does look worse today. It does not appear red however there is a area of swelling over the incision which is fluid- filled. Given the worsening symptoms with drainage and swelling over the incision site this patient needs incision and drainage to possibly salvage his spinal cord stimulator or complete explant if it looks like infection is spread. Objective:: Alert and oriented x3 no acute distress. Patient is afebrile patient does have an antalgic gait. Motor strength of the lower extremities is 5/5. There is no neurological changes. There is no other signs of infection including redness or fever. 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 We will do a I&D of the incision and possible salvage of a spinal cord stimulator system if the infection is superficial. If it looks like infection is spread then we will explant his entire system. He is also having some increased pain in his neck and arms at night. We will give him tramadol 50 mg at night to help him with his pain symptoms.
== END ==
PROVIDERS: PCP Family Medicine; Visit Provider Anesthesiology
DX: M51.16 Intervertebral disc disorders with radiculopathy, lumbar region (principal); T81.49XA Infection following a procedure, other surgical site, initial encounter; Z96.9 Presence of functional implant, unspecified
CPT/HCPCS: 99212

== ENCOUNTER 2018-07-18 13:28 | Outpatient (CLI) | payer MEDICARE, BC, SELFPAY ==
[2018-07-18 13:15] VITALS: BP 122/74; PULSE 68; RESP 20; TEMP 36.9; O2SAT 95
[2018-07-18 14:15] VITALS: BP 112/74; PULSE 68; RESP 20; TEMP 36.9; O2SAT 96
== END 2018-07-18 14:25 | disposition home or self-care (01) ==
LOC: INF 13:28
PROVIDERS: Visit Provider Family Medicine
DX: T81.49XA Infection following a procedure, other surgical site, initial encounter (principal); L03.312 Cellulitis of back [any part except buttock and flank]; A49.02 Methicillin resistant Staphylococcus aureus infection, unspecified site
CPT/HCPCS: 96374

== ENCOUNTER 2018-08-11 12:18 | Outpatient (CLI) | payer MEDICARE, BC, SELFPAY | END 2018-08-11 12:27 | disposition home or self-care (01) | LOC: INF 12:18 | PROVIDERS: Visit Provider Family Medicine | DX: Z45.2 Encounter for adjustment and management of vascular access device (principal) | CPT/HCPCS: G0463 ==

== ENCOUNTER → 2018-08-13 09:47 | Outpatient (POV) | payer MEDICARE, BC, SELFPAY ==
--- NOTE | 2018-08-13 10:02 | P.CONS_ITS ---
[facility] Pain Management SOAP Note Subjective:: This patient is a pleasant 72-year-old white male who we have been treating for low back pain with lumbar radicular symptoms. He had to have a spinal cord stimulator removed because of infection. His pain in his back and legs have increased since removal. Pain score is a 7 out of 10 today. He is currently on tramadol 50 mg once a day at night. I have continued to encourage him to wear his CPAP. We will increase his tramadol to 50 mg 3 times a day to help him with his pain symptoms. His PICC line has been removed. He is completed his course of antibiotics. His incision looks good. As it is healed very nicely. Sutures will be removed today. There are no sign of infection. No signs of redness. Objective:: Alert and oriented x3 in no acute distress. Patient does have an antalgic gait. Motor strength of the lower extremities is 5/5. There is no gross sensory deficit. Incision is clean dry and intact and healed very nicely with no signs of infection or redness. Assessment:: Degenerative disc disease of lumbar spine with lumbar radiculopathy symptoms status post removal of spinal cord stimulator system for infection. Plan:: We will follow-up with him in 2 weeks. We will reevaluate his symptoms at that time. I have increased his tramadol to 50 mg 3 times a day. We will remove his sutures today. I Continue to encourage him to use his CPAP for his sleep apnea.
[2018-08-13 10:16] VITALS: BP 183/95; PULSE 78; RESP 18; O2SAT 97; BMI 43.0
== END ==
PROVIDERS: PCP Family Medicine; Visit Provider Anesthesiology
DX: M51.16 Intervertebral disc disorders with radiculopathy, lumbar region (principal)
CPT/HCPCS: 99212

== ENCOUNTER → 2018-09-16 09:45 | Outpatient (POV) | payer MEDICARE, BC, SELFPAY ==
[2018-09-16 10:05] VITALS: BP 101/58; PULSE 66; RESP 18; O2SAT 98; BMI 43.0
--- NOTE | 2018-09-16 11:22 | P.CONS_ITS ---
[facility] Pain Management SOAP Note Subjective:: Patient is a pleasant 72-year-old white male who presents today for follow-up. Patient had a spinal cord stimulator however was removed due to infection. Patient is no longer on antibiotics he rates his pain a 7 out of 10 today. Patient is currently on tramadol 50 mg 1 p.o. 3 times daily as needed. Patient states that this is beneficial. Since his last visit he had a accident involving a tractor. Patient had a spleen injury. Patient was taken to and treated there. Patient also had increased back pain since then. Patient does not have any recent diagnostic imaging of his low back. We will order that today. Patient is also looking into bariatric surgery. I do believe that would be beneficial for him. ROS General: no recent weight change, no fever, no sleep disturbances Respiratory: no cough, no shortness of air, no recurring pulmonary infections Cardiovascular/Peripheral Vascular: No chest pain, No palpitations, no edema, no shortness of breath. Gastrointestinal: no incontinence, normal bowel movements reported Genitourinary: no incontinence Musculoskeletal: Back pain Psychiatric: normal mood/ affect Neurological: [denies weakness in extremities], [denies balance issues] Objective:: Physical Exam General: Alert and oriented x3, no acute distress, pleasant and cooperative, [on room air] Lungs: Resps E/U, Symmetrical chest expansion, Eyes: PERRL Musculoskeletal: Flexion and extension of lumbar spine somewhat guarded secondar y to pain, deep tendon reflexes normal, strength in upper and lower extremities [5/5], [abnormal gait noted] Neurological: speech clear, 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 Dr. Chahal has reviewed this note and agrees with this plan of care. This note was dictated using voice recognition software and may contain errors or omissions
== END ==
PROVIDERS: PCP Family Medicine; Visit Provider Clinical Nurse Specialist Family Health
DX: M51.16 Intervertebral disc disorders with radiculopathy, lumbar region (principal)
CPT/HCPCS: 99213

== ENCOUNTER → 2018-09-19 14:05 | Outpatient (CLI) | payer MEDICARE, BC, SELFPAY ==
--- NOTE | 2018-09-19 14:12 | MR_ITS ---
MR lumbar spine wo con, MR 3-d myelogram/MRCP HISTORY: LBP. Pain worse when walking and has bilateral leg pain. Worse X3wks since pinned by tractor on 08-19-18. RT hip pain. ITS.REASON: RT HIP AND LOW BACK PAIN ORDERING PHYSICIAN: Carissa Robb PATIENT AGE: 72 years Comparison: 09/30/2015 TECHNIQUE: Standard multiplanar multiecho sequences are performed without contrast. 3-D MIP and myelographic images are also rendered and reviewed FINDINGS: There is normal alignment. The spinal cord ends at the L1-L2 level. There is multilevel lumbar spondylosis with degenerative disc disease bulging disc and facet and ligamentum hypertrophy. T11-T12: Mild degenerative disc disease. T12-L1: Mild degenerative disc disease. L1-L2: Degenerative disc disease with endplate hypertrophic changes and bulging disc along with facet and ligamentum flavum hypertrophy. There is narrowing of the canal with severe bilateral lateral recess narrowing and severe left-sided foraminal narrowing and moderate right-sided foraminal narrowing. The endplate osteophytes and bulging disc abuts the anterior aspect of the cauda equina.. There is associated left paracentral/foraminal disc extrusion with minimal inferior extrusion of the disc as before causing severe left lateral recess narrowing. Not significant change. L2-L3: Severe degenerative disc disease with bulging disc along with facet and ligamentum flavum hypertrophy with moderate to severe right lateral recess narrowing and moderate left lateral recess narrowing and moderate to severe left-sided foraminal narrowing. There is transverse narrowing of the canal at this level. The findings at this level are not significant changed. L3-L4: Degenerative disc disease with bulging disc with facet and ligamentum hypertrophy with moderate bilateral foraminal narrowing and mild transverse narrowing of the canal not significant changed. L4-L5: Degenerative disc disease with bulging disc. There is 7 mm anterolisthesis of L4. The bulging disc is eccentric toward the left with broad-based left paracentral/foraminal and lateral disc protrusion. The anterolisthesis is slightly worse compared to the previous exam. There is canal stenosis at this level which has progressed since the previous exam with severe bilateral lateral recess narrowing and moderate to severe lateral foraminal narrowing greater on the left. L5-S1: Concentric bulging disc with facet and ligamentum hypertrophy with moderate bilateral foraminal narrowing. Incidental note made of small bilateral renal cysts. IMPRESSION: 1. Abnormal MRI of the lumbar spine with multilevel lumbar spondylosis bulging discs and facet and ligamentum hypertrophy with canal stenosis and bilateral lateral recess and foraminal narrowing. Please see above for detailed description at each level. 2. L1-L2: Degenerative disc disease with endplate hypertrophic changes and bulging disc along with facet and ligamentum flavum hypertrophy. There is narrowing of the canal with severe bilateral lateral recess narrowing and severe left-sided foraminal narrowing and moderate right-sided foraminal narrowing. The endplate osteophytes and bulging disc abuts the anterior aspect of the cauda equina.. There is associated left paracentral/foraminal disc extrusion with minimal inferior extrusion of the disc as before causing severe left lateral recess narrowing. Not significant change. 3. L2-L3: Severe degenerative disc disease with bulging disc along with facet and ligamentum flavum hypertrophy with moderate to severe right lateral recess narrowing and moderate left lateral recess narrowing and moderate to severe left-sided foraminal narrowing. There is transverse narrowing of the canal at this level. The findings at this level are not significant changed. 4. L3-L4: Degenerative disc disease with bu
--- NOTE | 2018-09-19 14:12 | MR_ITS ---
MR hip RT wo con HISTORY: ITS.REASON: RT HIP AND LOW BACK PAIN ORDERING PHYSICIAN: Carissa Robb PATIENT AGE: 72 years COMPARISON: 05/23/2018 TECHNIQUE: Multiplanar multiecho sequences are performed without contrast FINDINGS: There are severe osteoarthritic changes of the right hip with severe subarticular cystic changes of the acetabulum and dysplastic changes of the femoral head. Bone marrow edema is noted in the femoral head and femoral neck on the right as well as acetabulum. 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 These findings appear to have progressed since the plain film 05/29/2018. Trabecular thickening was noted on that exam. There is thickening of the synovium of the right hip capsule with some heterogeneous increased T2 signal. The left hip has an unremarkable appearance. IMPRESSION: Bone marrow edema the right femoral head and neck as well as the acetabulum with dysplastic changes of the femoral head and loss of joint space and subarticular cystic changes of the acetabulum with coarsening of the trabecular markings. This the coarsened trabecular pattern of the right ilium has been a constant feature dating back to 08/02/2009. Thickened right hip capsule noted with a small joint effusion and acetabular protrusio. 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 Cannot exclude underlying other underlying infectious or inflammatory etiologies of the right hip. Please correlate with clinical parameters. Suggest plain film correlation as well.
== END ==
PROVIDERS: PCP Family Medicine; Visit Provider Clinical Nurse Specialist Family Health
DX: M54.5 Low back pain (principal); M25.551 Pain in right hip
CPT/HCPCS: 72148; 73721; 76376

== ENCOUNTER → 2018-09-30 10:53 | Outpatient (POV) | payer MEDICARE, BC, SELFPAY ==
--- NOTE | 2018-09-30 11:06 | XR_ITS ---
XR knee RT 3V HISTORY: ITS.REASON: RT KNEE PAIN ORDERING PHYSICIAN: Carissa Robb PATIENT AGE: 72 years COMPARISON: None FINDINGS: There is been prior right total knee arthroplasty. No fracture or dislocation. No orthopedic complication. Good alignment. IMPRESSION: Status post total knee arthroplasty with no acute finding
[2018-09-30 12:21] VITALS: BP 126/68; PULSE 68; RESP 18; O2SAT 98; BMI 43.0
--- NOTE | 2018-09-30 12:30 | HMH.PAINSOAP ---
[facility] Pain Management SOAP Note Subjective:: Is a pleasant 72-year-old white male who presents today for follow-up after diagnostic imaging of his knee, hip, back. Patient has severe degenerative changes to his lumbar spine along with severe changes to his right hip. I am going to send him to neurosurgery Dr. Barfield for evaluation along with orthopedics Dr. Aviles. At this point I believe that the patient may be in need of some surgical intervention. He is continuing on tramadol and gabapentin. He rates his pain an 8 out of 10 ROS General: no recent weight change, no fever, no sleep disturbances Respiratory: no cough, no shortness of air, no recurring pulmonary infections Cardiovascular/Peripheral Vascular: No chest pain, No palpitations, no edema, no shortness of breath. Gastrointestinal: no incontinence, normal bowel movements reported Genitourinary: no incontinence Musculoskeletal: Back pain, hip pain, knee pain Psychiatric: normal mood/ affect Neurological: Numbness in bilateral legs, [denies balance issues] Objective:: Physical Exam General: Alert and oriented x3, no acute distress, pleasant and cooperative, [on room air] Lungs: Resps E/U, Symmetrical chest expansion, Eyes: PERRL Musculoskeletal: Flexion and extension of lumbar spine somewhat guarded secondary to pain, deep tendon reflexes normal, strength in upper and lower extremities [5/5], [abnormal gait noted] Neurological: speech clear, no gross sensory deficits Assessment:: Degenerative disc disease lumbar spine lumbar radiculopathy, osteoarthritis right hip, knee pain right side Plan:: We will send the patient out for evaluations to determine if he is a surgical candidate I will follow-up with the patient after these evaluations are completed. He is to continue on his tramadol 50 mg 1 p.o. 3 times daily and his gabapentin. Dr. Chahal has reviewed this note and agrees with this plan of care. This note was dictated using voice recognition software and may contain errors or omissions
--- NOTE | 2018-09-30 12:33 | P.CONS_ITS ---
[facility] Pain Management SOAP Note Subjective:: Is a pleasant 72-year-old white male who presents today for follow-up after diagnostic imaging of his knee, hip, back. Patient has severe degenerative changes to his lumbar spine along with severe changes to his right hip. I am going to send him to neurosurgery Dr. Barfield for evaluation along with or thopedics Dr. Aviles. At this point I believe that the patient may be in need of some surgical intervention. He is continuing on tramadol and gabapentin. He rates his pain an 8 out of 10 ROS General: no recent weight change, no fever, no sleep disturbances Respiratory: no cough, no shortness of air, no recurring pulmonary infections Cardiovascular/Peripheral Vascular: No chest pain, No palpitations, no edema, no shortness of breath. Gastrointestinal: no incontinence, normal bowel movements reported Genitourinary: no incontinence Musculoskeletal: Back pain, hip pain, knee pain Psychiatric: normal mood/ affect Neurological: Numbness in bilateral legs, [denies balance issues] Objective:: Physical Exam General: Alert and oriented x3, no acute distress, pleasant and cooperative, [on room air] Lungs: Resps E/U, Symmetrical chest expansion, Eyes: PERRL Musculoskeletal: Flexion and extension of lumbar spine somewhat guarded secondary to pain, deep tendon reflexes normal, strength in upper and lower extremities [5/5], [abnormal gait noted] Neurological: speech clear, no gross sensory deficits Assessment:: Degenerative disc disease lumbar spine lumbar radiculopathy, osteoarthritis right hip, knee pain right side Plan:: We will send the patient out for evaluations to determine if he is a surgical candidate I will follow-up with the patient after these evaluations are completed. He is to continue on his tramadol 50 mg 1 p.o. 3 times daily and his gabapentin. Dr. Chahal has reviewed this note and agrees with this plan of care. This note was dictated using voice recognition software and may contain errors or omissions
== END ==
PROVIDERS: PCP Family Medicine; Visit Provider Clinical Nurse Specialist Family Health
DX: M51.16 Intervertebral disc disorders with radiculopathy, lumbar region (principal); M16.11 Unilateral primary osteoarthritis, right hip; M25.561 Pain in right knee
CPT/HCPCS: 73562; 99213

== ENCOUNTER → 2019-03-02 09:23 | Outpatient (CLI) | payer MEDICARE, BC, SELFPAY ==
--- NOTE | 2019-03-02 09:25 | US_ITS ---
US Arterial Lower Ext Rest HISTORY: ITS.REASON: skin changes, decreased pedal bilateral rest pain. Right basilar ulcer. Previous smoker hyperlipidemia. Skin color changes both legs. No claudication Skin changes. Vascular healing wound right foot. Previous smoker. TECHNIQUE: Segmental pressures obtained of both right and left leg. These are compared to brachial blood pressure to yield index at each level sampled including summary LEON. The data sheets from the procedure are available in PACS FINDINGS Rest study only performed today . No Prior studies available for comparison. Blood pressures reported are in millimeters mercury. Right LEON 1.0 right TBI is 0.9 Brachial BP: 158 Thigh BP: BP 156 with index 0.99 Calf BP: 167 and index 1.06 Ankle PT: BP 152 with index 0.96 Ankle DP : BP 168. Index 1.06 Digit =BP 136. Index 0.86 ======== LEFT LEON 1.0 LEFT LEON 0.8 Brachial BPD: 151 Thigh BP: 166 with index 1.05 Calf BP: 178 with index 1.13 Ankle PT:BP 165 with index 1.04 Ankle DP: BP 161 with index 1.02 Digit = BP 132 with index 0.84 Pulses and waveforms: Normal IMPRESSION: Normal pulses and waveforms.. Satisfactory/Normal resting ABIs reveal no evidence of significant flow restriction: Right LEON 1.0 right TBI is 0.9 Left LEON 1.0 Left LEON 0.8
== END ==
PROVIDERS: PCP Family Medicine; Visit Provider Podiatrist
DX: R09.89 Other specified symptoms and signs involving the circulatory and respiratory systems (principal)
CPT/HCPCS: 93923

== ENCOUNTER → 2019-05-25 14:21 | Outpatient (CLI) | payer MEDICARE, BC, SELFPAY ==
--- NOTE | 2019-05-25 14:30 | XR_ITS ---
PROCEDURE: XR CHEST 2V CLINICAL HISTORY: HX TOBACCO USE, SLEEP APNEA COMPARISON: [id number] XR chest portable PICC plac from 06/02/2018 [id number] XR chest portable PICC plac from 06/02/2018 [id number] XR chest portable PICC plac from 06/17/2018 FINDINGS: The cardiomediastinal silhouette and pulmonary vascularity are within normal limits. The lungs are clear without infiltrates, suspicious nodules, or pleural effusions. There is an old fracture of the right 8th rib. There are degenerative changes in the shoulders IMPRESSION: No change with no acute finding Dictated by: Ashu Brewer MD 05/25/2019 15:30 Electronically signed by Ashu Brewer MD in [place] 05/25/2019 15:30
--- NOTE | 2019-05-25 15:39 | ECG_ITS ---
APPROVED REPORT Exam: Resting ECG HR:60 bpm ECG Measurements Heart Rate 60 AXES KS 184 P 33 QRSd 90 QRS 7 QT 428 T 52 QTc 428 <Conclusion> Normal sinus rhythm Nonspecific T wave abnormality Abnormal ECG Electronically signed by : Bernard Cortés, 05/25/2019 17:12:19
[2019-05-25 17:16] LABS: Alanine Aminotransferase 34 U/L (12-78); Albumin Level 4.1 gm/dL (3.4-5.0); Alkaline Phosphatase 136 U/L (46-116); Aspartate Amino Transferase 29 U/L (15-37); Bilirubin,Total 0.5 mg/dL (0.2-1.0); Blood Urea Nitrogen 22 mg/dL (7-18); Calcium 9.2 mg/dL (8.5-10.1); Carbon Dioxide 29 mmol/L (21.0-32.0); Chloride 102 mmol/L (98-107); Creatinine,Serum 1.35 mg/dL (0.70-1.30); Estimated Glomerular Filt Rate 52 ml/min (>60); GFR (African American) 63 ML/MIN (>60); Glucose 96 mg/dL (74-106); Sodium 139 mmol/L (136-145); Total Protein,Serum 8.1 gm/dL (6.4-8.2)
[2019-05-25 18:14] LABS: Basophils % 0.6 % (0.1-2.0); Eosinophils # 0.4 K/mm3 (0.0-0.4); Eosinophils % 5.5 % (0.1-12.0); Hematocrit 41.8 % (42.0-52.0); Hemoglobin 12.6 g/dL (14.1-18.0); Lymphocytes # 2.2 K/mm3 (0.7-4.5); Lymphocytes % 30.1 % (10-50); Mean Corpuscular HGB Conc 30.2 g/dL (31.8-35.4); Mean Corpuscular Hemoglobin 29.7 pg (27.0-31.2); Mean Corpuscular Volume 98.4 fl (80-94); Mean Platelet Volume 9.1 fl (7.4-10.4); Monocytes # 0.4 K/mm3 (0.1-1.0); Monocytes % 5.6 % (1.7-9.3); Neutrophils # 4.2 K/mm3 (1.8-7.8); Neutrophils % 58.2 % (37.0-80.0); Platelet Count 151 K/mm3 (142-424); Red Blood Count 4.25 M/mm3 (4.60-6.20); Red Cell Distribution Width 15.1 % (11.5-17.5); White Blood Count 7.2 K/mm3 (4.8-10.8)
[2019-05-28 17:04] LABS: Vitamin D 25 Hydroxy 33.2 ng/mL (30.0-100.0)
== END ==
PROVIDERS: PCP Family Medicine; Visit Provider Podiatrist
DX: Z01.818 Encounter for other preprocedural examination (principal); S82.841A Displaced bimalleolar fracture of right lower leg, initial encounter for closed fracture
CPT/HCPCS: 36415; 71046; 73610; 80053; 82652; 84550; 85025; 93005; 99201

== ENCOUNTER 2019-05-27 11:01 | Observation (INO) ==
--- NOTE | 2019-05-27 12:48 | Operative Note ---
Date of procedure: 05/27/19 Pre-op Diagnosis:: 1. Right bimalleolar ankle fracture 2. Right displaced distal fibula fracture 3. Right deltoid ligament tear 4. Right syndesmosis disruption 5. Right ankle synovitis 6. Neuropathy Post-op Diagnosis:: Same Procedure performed:: 1. Right ankle (distal fibula) ORIF 2. Right ankle arthrotomy 3. Right open primary repair deltoid ligament 4. Right ORIF syndesmosis 5. Right ankle synovectomy 6. Excision of soft tissue mass, medial ankle Surgeon:: Brittny Rosales DPM WELDING MACHINE OPERATOR ULTRASONIC:: Shubham Powell Anesthesia: regional (R popliteal block), LMA Estimated blood loss (mL): 20 Clinical Note:: Right Ankle Fracture Pre-op: X-rays 3 views right ankle taken 05/25/19, evaluated by myself. Report also noted. X-rays show a fracture to the lateral malleolus approximately 8 cm proximal to the distal tip. There is widening of the ankle mortise with lateral subluxation of the talus. Some callus formation noted indicating an old frac ture. It is possible that patient was unaware he had fracture which was starting to heal. When he was walking and when he tripped it he got new symptoms from displacement. X-rays reviewed and discussed with the patient. Conservative treatment discussed but not recommended. DOI: unknown, 3-4 weeks ago and ago Saturday. We discussed surgery. All risks and benefits were discussed including but not limited to: damage to blood vessels and nerves, bleeding, infection, wound complications, delayed, mal or non-union of bone, post-traumatic arthritis, need for further surgery, need for removal of implant, prolonged swelling of the extremity, prolonged pain, CRPS/RSD, DVT, and anesthetic complications. No guarantees were given. All questions fully answered. The patient verbalized understanding and agreed to proceed with surgery. Consent was obtained. Necessary labs and pre-op testing ordered: uric acid, CBC, CMP, EKG, CXR. He has a wheelchair and walker at home. Recommend RKS. e-Rx Zofran and Norc o 7.5/325 #30. Discussed plan of care with PCP Dr. Dowd, granted medical clearance. Patient has had a history of difficulty with anesthesia secondary to his sleep apnea noncompliance. Depending on how he does with anesthesia we may keep overnight for observation. Operative findings:: Right ankle distal fibular fracture noted obliquely. There was a another fracture noted to the fibula, transversely more proximal with callus formation noted. Likely when the patient tripped and had the accident fell at home several weeks ago he fractured the ankle which started to heal. When he fell again last week Saturday he broke through the callus as well as sustained new injuries. There was synovitis and scar tissue noted in the ankle joint. Soft tissue mass noted to the medial ankle. The deltoid ligament had a complete tear. Syndesmosis instability consistent with interosseous tearing. Operative note:: On this date and time patient was deemed an appropriate surgical candidate. Pre- op regional popliteal and saphenous nerve block performed by anesthesia. With informed consent signed, the patient was taken to the operating theater. The p atient was positioned supine. General anesthesia was induced. Tourniquet was applied to the right thigh. The lower extremity was prepped and draped in normal sterile fashion. Right Distal Fibula Fracture ORIF: Attention was directed to the lateral ankle where intra-op fluoroscopy was utilized to winifred anatomical landmarks. A linear incision was made over the lateral ankle. Dissection was carried thru skin and subcutaneous tissue with care taken to maintain surgical hemostasis and safely retract neurovascular structures. Dissection was then carried thru deep fascia to bone. The peroneal tendons were visible posteriorly and laterally, and safely retracted during procedure. There was a fracture noted to the distal fibula spiral oblique nondisplaced. A another fracture was noted more proximally which was transverse in nature. The fibula was clearly visualized and the fracture was identified. The bone was gapped. The fracture was noted to be communited. Utilizing a curette the fracture fragments were cleaned. Please note that there was some callus formation to proximal fibula fracture. Due to the fragmentation the ankle was very unstable. The wound was flushed with copious amounts of normal sterile saline. A curette was used to debride the fibrosis tissue from the fracture site. At this point reduction forceps were utilized compressing the distal spiral oblique fibula fracture. Intraoperative fluoroscopy was utilized to check pre-and post-reduction AP and lateral views. The fracture was too communited to fit a lag, intrafrag screw. A bridge plate technique was utilized. A Maxta anatomic locking plate was applied and temporarily fixed. Again x-ray was used to check the reduction and adequate reduction was noted with alignment of the ankle joint. 4 locking screws were utilized distally to secure the plate to the fibula. Clamsp removed and fracture re-reduced. Intraoperative fluoroscopy was utilized once again to check position reduction it was deemed to be appropriate and stable. 3 locking screws were then inserted proximally to secure the plate to the proximal section of the fibula. The remaining screw holes were filled in with locking screws. The wound was flushed with copious amounts of normal sterile saline. Right ankle medial arthrotomy: A separate incision was made on the ankle medial to the tibialis anterior tendon. A linear incision was carried down through skin into subcutaneous tissue with care taken to maintain surgical hemostasis and safely retract neurovascular structures. Dissection then carried down through the deep fascia. The deltoid ligament was visualized. Utilizing intraoperative fluoroscopy the ankle joint was taken through range of motion. Positive talar tilt and anterior ankle drawer. Excision of right ankle soft tissue mass: An incidental finding of a soft tissue mass was noted to the medial ankle. It was sharply debrided and sent to pathology as a specimen. Right deltoid ligament open primary repair: The deltoid ligament was visualized and intact to the talus, but completely torn off the medial malleolus. 2.7mm Anchors x 2 inserted in standard technique into the medial malleolus. 2-0 Vicryl was used to suture the deltoid to reinforce it. Next dissection was taken down to the level of the bone. There was instability still noted at the syndesmosis. Right ankle synovectomy: The ankle joint was visualized and there was scar tissue and synovitis noted in the ankle joint. Synovitic fluid was expressed. Using 15 blade the synovitic tissue was sharply debrided.The ankle joint was flushed with copious amounts of normal sterile saline. Right open reduction internal fixation syndesmosis: Attention was directed to the superior aspect of the previous incision which was elongated and lengthened proximally to expose the distal fibula. A Maxta 4-hole syndesmosis plate was then inserted on the distal fibula. A 4.0 mm cortical screw was inserted from lateral to medial posterior to anterior. Position was checked under intraoperative fluoroscopy. Reduction of the syndesmosis was noted. The wound was flushed with copious amounts of normal sterile saline. 2-0, 3-0 Vicryl was then utilized to reapproximate the deep issue. 3-0 Vicryl was then used to reapproximate the subcutaneous layer in an interrupted fashion. 3-0 nylon was used to reapproximate the skin in an inter rupted mattress fashion. Via flow was inserted into the incision sites. Skin herlinda applied to reinforce incision site. The tourniquet was deflated at 125 minutes and immediate hyperemic response was noted to the digits. The wounds were cleansed. Xerofoam, dry sterile dressing was then applied followed by a below knee modified Gates posterior U splint. The patient was awoken from anesthesia and transfer to recovery with vital signs stable and neurovascular status intact. Materials: Maxta 2.7mm anchors x 2 Maxta 10 hole fibula plate, 3.5mm locking x 7 Maxta 3.5mm non locking screw x 1 Maxta 4.0mm cortical screw x 2 Viaflow 1 Discharge/Plan: Patient is to maintain splint clean dry and intact. Polar pack/ice behind the right knee and elevate on foam ramp or two pillows. Non weight bearing with wheelchair and walker. Rx given for Donahue 7.5, Zofran and Motrin 800mg. Obtain post op films, 3 views right ankle. Follow up in one week. Tourniquet time (min): 125 Condition: stable Disposition: same day Specimens:: Right ankle soft tissue Complications:: None
--- NOTE | 2019-05-27 16:04 | Progress Note ---
[facility] Anesthesia Record Part I Intake, IV Amount: 1,000 Estimated blood loss (mL): 25 Urine output (mL): 0 (NM) Blood Products used (#): none Blood Pressure: 146/74 SaO2: 95 Pulse Rate: 87 Respiratory Rate: 16 Temperature: 98.2 F Patient is:: Drowsy, Oral/Nasal airway (LMA removed in PACU), Stable Stable to PACU at:: 15:58
--- NOTE | 2019-05-27 16:05 | Progress Note ---
[facility] Anesthesia Record Part II Discharge Time: 16:28 Destination: Surgical Day Care (OP Surgery) PACU nurse assessment reviewed?: Yes Patient Condition:: Good Anesthesia Complications:: None Swallowing reflex intact?: Yes Cyanosis?: No
--- NOTE | 2019-05-27 17:27 | H&P/Discharge Summary ---
General - General Admission date:: 05/27/19 Discharge date: 05/28/19 *Admission Date: 05/27/19 *Chief complaint: Right ankle fracture *History of present illness: Mr. Julio underwent right ankle ORIF today 05/27/2019. In recovery patient was having difficulty being understood after anesthesia. He has had a history of a right knee and hip replacement over the last few years with some anesthesia complication. His is concerned if he goes home after surgery he may hallucinate and fall again. His initial injury that was fixed today was from a fall at home two or three weeks ago in the middle night, states patient was sleep walking. She states since Mr. Julio had the hip surgery he has had five falls. Discussed this with PCP Dr. Dowd who would agrees with 23-hour observation admission. [facility] History I have reviewed the patient's past medical history: Yes Medical History: Reports:: BPH, Gastroesophageal Reflux Disease(GERD), Hyperli pidemia, MRSA (may 2018) Denies:: Cancer, Diabetes Mellitus Type 1, Diabetes Mellitus Type 2, Internal Pacemaker, Seizures *Have you ever received a pneumonia vaccine?: Yes *Have you received a flu vaccine this season?: Yes Other Medical History: Reports: Arthritis, Other. Denies: Blood Transfusion Reaction Laterality Cases: Left: Other, Right: Carpal Tunnel Release, Total Hip Replacement Other Surgeries: Yes: Colonoscopy, Other. No: Pacemaker Amputation: Yes (left hand) Fractures: No - *Social History Educational Level: Attended Grade School Smoking Status: Former smoker Tobacco Type: cigarettes # Packs/Day (cigarettes): 0 #Yrs smoked (if former smoker): 20 Alcohol Intake: never Alcohol Intake Frequency:: other *Occupational Status:: retired, disabled Housing: house Household Members: spouse *Travel in the last 8 weeks: None Family Hx:: Diabetes, Heart Attack, Hyperlipidemia, Hypertension Review of Systems - Review of Systems Review of systems:: pertinent systems reviewed and negative unless documented below - Constitutional Denies chills, Denies fatigue - Eyes Denies blurry vision - ENT Denies dizziness - *Cardiovascular Denies chest pain, Denies shortness of breath - *Respiratory Denies cough, Denies shortness of breath - *Gastrointestinal Denies abdominal pain, Denies vomiting - *Genitourinary Denies difficulty urinating - *Musculoskeletal Reports back pain, Reports muscle cramps, Reports numbness - Integumentary/Breasts Reports dry skin - *Neurologic Reports abnormal movements, Reports frequent falls, Reports tingling/numbness/burning sensations, Reports restless legs - Psychiatric Reports abnormal sleep pattern - Endocrine Denies cold intolerance - Allergic/Immunologic Reports GI upset with certain foods Exam Vital signs and Labs for Last 24 Hours: Temp Pulse Resp BP Pulse Ox 98.1 F 75 16 147/72 H 96 05/27/19 16:28 05/27/19 16:58 05/27/19 16:58 05/27/19 16:58 05/27/19 16:58 I & O for Last 24 hours: Intake & Output 05/25/19 05/26/19 05/27/19 05/28/19 11:59 11:59 11:59 11:59 Intake Total 1000 / 1000 Balance 1000 / 1000 Weight 287 lb - Constitutional no acute distress - *Routine HEENT Exam Head: Present: normocephalic - *Routine Neck Exam Present: supple - *Routine Respiratory Exam Present: accessory muscle use - *Routine Cardiovascular Exam Present: RRR - *Routine Abdominal Exam Present: soft - *Routine Rectal Exam Patient deferred: visual exam - *Routine Exam Patient deferred: penile exam - *Routine Extremities Exam Present: edema, pulses intact, joint swelling - *Routine Skin Exam Present: intact, dry - *Routine Neurological Exam Present: altered mental status, moving all extremities - Routine Psychiatric Exam Absent: normal thought process, good judgment - Detailed Lower Extremity Exam Comments: Right lower extremity posterior splint clean dry and intact. Capillary fill time within normal limits. No calf or thigh pain noted bilaterally. Light touch sensation and motor function decreased secondary to nerve block. Hospital Course Hospital Course: Patient underwent surgical procedure 05/27/2019. After surgery in PACU patient was having some hallucinations. was concerned about him going home and sleepwalking again. Patient is a fall risk and decision was made to admit the patient for 23-hour observation. He did fine overnight and had no complications. Incentive spirometer use given this morning. He will have physical therapy for NWB gait training. Results Completed studies during hospitalization [Text1]: Right ankle x-rays postop 05/27/2019 show intact hardware to the distal fibula, 2 syndesmotic screws and 2 ankles to the medial malleolus. Reduction of the fracture noted. DS: Diagnosis - Discharge Diagnosis (1) Closed right ankle fracture Status: Acute (2) Tear of deltoid ligament of right ankle Status: Acute (3) Syndesmotic disruption of right ankle Status: Acute (4) Synovitis of right ankle Status: Acute (5) Closed fracture of right distal fibula Status: Acute (6) Risk for falls Status: Acute (7) Sleep walking Status: Acute (8) Sleep apnea Status: Acute (9) Confusion Status: Acute (10) Decreased mobility Status: Acute (11) Morbid obesity Status: Acute (12) Restless leg syndrome Status: Acute (13) Neuropathy Status: Chronic (14) Left hand amputee Status: Acute Discharge Plan - Patient Discharge Instructions ACTIVITY: Limited activity DIET: advance to your usual diet Additional Instructions: Patient is to maintain splint clean dry and intact. Polar pack/ice behind the right knee. Elevate RLE on foam ramp or two pillows. Strict non weight bearing with wheelchair and walker. Also got a rolling knee scooter. May need hospital bed. Incentive spirometer. Rx previously given for [place] 7.5, Zofran. Follow up in one week. Patient Instructions: DI for Open Reduction Internal Fixation Surgery, DI for Surgical Site Infection - Follow up Plan Follow up with: Brittny Rosales DPM [Staff Physician] - Darren Dowd MD [Primary Care Provider] - Disposition: Home, Self-Fdc Medications: Home Medications Medication Instructions Recorded Confirmed Type acetaminophen ER 650 mg 325 mg PO Q4HP PRN 08/15/17 05/27/19 History tablet,extended release atorvastatin 10 mg tablet 10 mg PO HS 08/15/17 05/27/19 History cetirizine 10 mg chewable tablet 1 tab PO HS tab 08/15/17 05/27/19 History cholecalciferol (vitamin D3) 1,000 1,000 unit PO DAILY 08/15/17 05/27/19 History unit capsule melatonin 5 mg capsule 6 mg PO HS 08/15/17 05/27/19 History meloxicam 15 mg tablet 15 mg PO DAILY 08/15/17 05/27/19 History ropinirole 4 mg tablet 4 mg PO BID 30 Days #30 02/24/18 05/27/19 History Tamsulosin HCl [Flomax 0.4mg 0.4 mg PO HS 05/24/18 05/27/19 History capsule] gabapentin 300 mg capsule 300 mg PO TID cap 03/26/19 05/27/19 History quetiapine 50 mg tablet 50 mg PO HS #90 tab 03/26/19 05/27/19 History duloxetine 60 mg capsule,delayed 60 mg PO BID #180 cap 04/02/19 05/27/19 History release bisacodyl 5 mg tablet,delayed 1 tab PO HS tab 05/25/19 05/27/19 History release hydrocodone 7.5 mg-acetaminophen 1 tab PO Q4-6H PRN #30 tab 05/25/19 05/27/19 Rx 325 mg tablet ondansetron 4 mg disintegrating 4 mg PO Q6H #30 tab 05/25/19 05/27/19 Rx tablet Ferrous Sulfate [Iron] 324 mg PO DAILY 05/27/19 05/27/19 History Prescriptions/Medication Reconciliation: Continued atorvastatin 10 mg tablet 10 mg PO HS cholecalciferol (vitamin D3) 1,000 unit capsule 1,000 unit PO DAILY cetirizine 10 mg chewable tablet 1 tab PO HS tab meloxicam 15 mg tablet 15 mg PO DAILY melatonin 5 mg capsule 6 mg PO HS gabapentin 300 mg capsule 300 mg PO TID cap bisacodyl 5 mg tablet,delayed release 1 tab PO HS tab ondansetron 4 mg disintegrating tablet 4 mg PO Q6H #30 tab hydrocodone 7.5 mg-acetaminophen 325 mg tablet 1 tab PO Q4-6H PRN #30 tab PRN Reason: pain acetaminophen ER 650 mg tablet,extended release 325 mg PO Q4HP PRN PRN Reason: fever or pain ropinirole 4 mg tablet 4 mg PO BID 30 Days #30 quetiapine 50 mg tablet 50 mg PO HS #90 tab duloxetine 60 mg capsule,delayed release 60 mg PO BID #180 cap Ferrous Sulfate [Iron] 324 mg PO DAILY Tamsulosin HCl [Flomax 0.4mg capsule] 0.4 mg PO HS - Problem Reconciliation Problems Reviewed?: Yes
[2019-05-28 06:15] LABS: Microscopic, Urine URINE MICROSCOPIC (MICROSCOPIC)
[2019-05-28 06:17] LABS: Appearance,Urine CLEAR (Clear); Bilirubin,Urine Negative (Negative); Blood, Urine Negative (Negative); Color,Urine YELLOW (Yellow); Glucose,Urine (UA) Negative (Negative); Ketones,Urine Negative (Negative); Leukocyte Esterase,Urine Negative (Negative); PH,Urine 5.5 (5.0-8.5); Protein,Urine Negative (Negative); Specific Gravity, Urine 1.025 (1.005-1.030); Urobilinogen,Urine 0.2 EU/dl (0.2)
[2019-05-28 06:32] LABS: Bacteria,Urine Trace /lpf; Squamous Epithelial Cell,Urine Occasional #/hpf (0-5); WBC,Urine Occasional #/hpf (0-3)
[2019-05-28 06:39] LABS: Albumin Level 3.4 gm/dL (3.4-5.0); Albumin/Globulin Ratio 0.9 (1.1-1.8); Anion Gap 12.6 mEq/L (5-15); Bilirubin,Total 0.5 mg/dL (0.2-1.0); Calcium 8.6 mg/dL (8.5-10.1); Globulin 3.9 gm/dl (1.3-3.2); Total Protein,Serum 7.3 gm/dL (6.4-8.2)
[2019-05-28 06:59] LABS: Basophils % 0.4 % (0.1-2.0); Eosinophils # 0.1 K/mm3 (0.0-0.4); Eosinophils % 1.7 % (0.1-12.0); Hematocrit 37.5 % (42.0-52.0); Hemoglobin 11.4 g/dL (14.1-18.0); Lymphocytes # 1.2 K/mm3 (0.7-4.5); Lymphocytes % 16.7 % (10-50); Mean Corpuscular HGB Conc 30.3 g/dL (31.8-35.4); Mean Corpuscular Volume 99.3 fl (80-94); Mean Platelet Volume 8.1 fl (7.4-10.4); Monocytes # 0.6 K/mm3 (0.1-1.0); Monocytes % 7.6 % (1.7-9.3); Neutrophils # 5.5 K/mm3 (1.8-7.8); Neutrophils % 73.6 % (37.0-80.0); Platelet Count 138 K/mm3 (142-424); Red Blood Count 3.78 M/mm3 (4.60-6.20); White Blood Count 7.4 K/mm3 (4.8-10.8)
--- NOTE | 2019-05-28 07:29 | Pharmacy Consult Notes ---
[facility] Pharmacy VTE Monitoring - Patient Demographics Admission date: 05/28/19 Report Date: 05/28/19 Time: 07:29 Allergies/Adverse Reactions: Patient Allergies No Known Allergies Allergy (Verified 05/27/19 11:41) Height: 1.78 m Weight: 135.256 kg Patient Problems: Current Active Problems Closed right ankle fracture (Acute) Tear of deltoid ligament of right ankle (Acute) Syndesmotic disruption of right ankle (Acute) Synovitis of right ankle (Acute) Closed fracture of right distal fibula (Acute) Risk for falls (Acute) Sleep walking (Acute) Sleep apnea (Acute) - VTE Risk Labs: VTE Related Lab Results Hgb 11.4 g/dL (14.1-18.0) L 05/28/19 06:12 Hct 37.5 % (42.0-52.0) L 05/28/19 06:12 Plt Count 138 K/mm3 (142-424) L 05/28/19 06:12 BUN 19 mg/dL (7-18) H 05/28/19 06:12 Creatinine 1.45 mg/dL (0.70-1.30) H 05/28/19 06:12 Estimated Creat Clear 46 mL/min (50-200) 05/28/19 06:12 Was VTE Risk Assessment Performed: Yes VTE Score: 9 VTE Risk Level: Moderate Risk Clinical Trial Participant: No - Prophylaxis VTE Prophylaxis Ordered?: Yes Types of VTE Prophylaxis: TEDS Knee High Location of Applied Device: Left Leg
== END 2019-05-28 11:49 ==
LOC: OR 11:01 → 2ND 11:01
PROVIDERS: ADMIT Podiatrist; ATTEND Podiatrist
CPT/HCPCS: 36415; 73600; 73610; 76000; 80053; 81001; 85025; 88305; 96374; 97162; C1713; C1762; C1776; G0378; J2405; S0077

== ENCOUNTER → 2019-06-16 09:01 | Outpatient (CLI) | payer MEDICARE, BC, SELFPAY ==
--- NOTE | 2019-06-16 09:43 | XR_ITS ---
PROCEDURE: XR FOOT WT BEARING RT 3V CLINICAL INDICATION: postop Follow-up surgery COMPARISON: FTL3 FOOT-LT-3 VIEWS from 12/01/2015 FTR3 FOOT-RT-3 VIEWS from 12/01/2015 FTL3 FOOT-LT-3 VIEWS from 02/23/2016 XR ANKLE RT MIN 3V from 05/27/2019 XR ANKLE WT BEARING RT MIN 3V from 06/16/2019 FINDINGS: The study is obtained through CT. There has been ORIF of the distal hip the of with a lateral bone plate at the fibula and to transverse screws within the fibular bone plate into the tibia. The ankle mortise is preserved. There is callus formation at the fibular fracture. The fibular fracture distal fragment is displaced laterally by 6 mm with good alignment. The there are 2 anchor screws at the tip of the medial malleolar region. There are mild osteoarthritic changes of the talonavicular joint and the cuneiform tarsal joint with a prominent calcaneal spur noted IMPRESSION: Status post ORIF distal tib fib with good alignment as described Dictated by: Ashu Brewer MD 06/16/2019 15:51 Electronically signed by Ashu Brewer MD in [place] 06/16/2019 15:51
== END ==
PROVIDERS: PCP Family Medicine; Visit Provider Podiatrist
DX: S82.431D Displaced oblique fracture of shaft of right fibula, subsequent encounter for closed fracture with routine healing (principal); S93.421D Sprain of deltoid ligament of right ankle, subsequent encounter
CPT/HCPCS: 73610; 73630

== ENCOUNTER → 2019-07-13 10:57 | Outpatient (CLI) | payer MEDICARE, BC, SELFPAY ==
--- NOTE | 2019-07-13 11:06 | XR_ITS ---
PROCEDURE: XR ANKLE WT BEARING RT MIN 3V CLINICAL INDICATION: postop views, fracture Follow-up COMPARISON: XR ANKLE RT MIN 3V from 05/25/2019 XR ANKLE RT MIN 3V from 05/27/2019 XR ANKLE RT 2V from 05/27/2019 XR ANKLE WT BEARING RT MIN 3V from 06/16/2019 FINDINGS: Exam is obtained through a cast. Lateral bone plate is distal fibula remains in place. There is minimal displacement of the distal fracture fragment. Fracture line is still visible although there is some callus formation developing. Two screws extend into the distal tibia which remain in place and there are 2 anchor screws in the medial malleolar region. The ankle mortise is preserved IMPRESSION: Status post ORIF distal fibular fracture with good alignment and developing callus formation Dictated by: Ashu Brewer MD 07/13/2019 11:43 Electronically signed by Ashu Brewer MD in [place] 07/13/2019 11:43
--- NOTE | 2019-07-13 11:08 | XR_ITS ---
PROCEDURE: XR CHEST 2V CLINICAL HISTORY: ABN CXR Shortness of breath, tobacco use, sleep apnea COMPARISON: [id number] XR chest portable PICC plac from 06/02/2018 [id number] XR chest portable PICC plac from 06/17/2018 XR CHEST 2V from 05/25/2019 FINDINGS: The cardiomediastinal silhouette and pulmonary vascularity are within normal limits. Consolidation is present in the right lower lobe consistent with pneumonia. Degenerative changes the shoulders IMPRESSION: Right lower lobe pneumonia. Recommend following till clear Dictated by: Ashu Brewer MD 07/13/2019 11:39 Electronically signed by Ashu Brewer MD in [place] 07/13/2019 11:39
== END ==
PROVIDERS: PCP Family Medicine; Visit Provider Podiatrist
DX: S82.841G Displaced bimalleolar fracture of right lower leg, subsequent encounter for closed fracture with delayed healing (principal)
CPT/HCPCS: 71046; 73610

== ENCOUNTER → 2019-07-28 09:04 | Outpatient (POV) | payer MEDICARE, BC, SELFPAY ==
--- NOTE | 2019-07-28 09:12 | XR_ITS ---
PROCEDURE: XR ANKLE WT BEARING RT MIN 3V CLINICAL INDICATION: postop views Postop pain and swelling COMPARISON: XR ANKLE RT MIN 3V from 05/27/2019 XR ANKLE RT 2V from 05/27/2019 XR ANKLE WT BEARING RT MIN 3V from 06/16/2019 XR ANKLE WT BEARING RT MIN 3V from 07/13/2019 FINDINGS: Status post ORIF distal fibula with lateral bone plate with 2 screws extending into the distal tibia. There is good alignment. There is developing callus formation at the fibular fracture site. There are 2 anchor screws within the medial malleolar region unchanged. Posterior distal tibia is obscured by the overlying fibular bone plate. Artifact is present from overlying corrugated appearing stabilization device IMPRESSION: Good alignment status post distal fibular fracture as described above Dictated by: Ashu Brewer MD 07/28/2019 14:27 Electronically signed by Ashu Brewer MD in [facility] 07/28/2019 14:27
[2019-07-28 10:50] VITALS: BP 125/86; PULSE 70; RESP 18; O2SAT 99; BMI 41.5
--- NOTE | 2019-08-06 08:46 | HMH.PAINSOAP ---
[facility] Pain Management SOAP Note Subjective:: Date of service 07/28/2019 Patient is a pleasant 72-year-old white male who presents today for follow-up. He is being treated for degenerative disc disease of his lumbar spine along with severe changes to his right hip. Patient scheduled to follow-up with Dr. Barfield for evaluation along with orthopedics. He is here today with complaints of left shoulder pain. Patient says that the pain is worse when raising his arm or with any movement. He rates his pain a 7 out of 10 today. He is continue with tramadol and gabapentin. He denies any side effects to his medications. Review of Systems General: No recent weight changes, no fever, no sleep disturbances Respiratory: No cough, no shortness of air, no recurring pulmonary infections Cardiovascular/peripheral vascular: No chest pain, no palpitations, no edema, no shortness of breath Gastrointestinal: No new onset incontinence, normal bowel movements reported Genitourinary: No new onset incontinence Musculoskeletal: Left shoulder pain, low back pain, right hip pain Psychiatric: Normal mood/affect Neurological: [Denies weakness in extremities], [denies balance issues] Objective:: Physical exam General: Alert and oriented x3, no acute distress, pleasant and cooperative, [on room air] Lungs: Respirations even and unlabored, symmetrical chest expansion Eyes: PERRL Musculoskeletal: Flexion and extension of cervical and lumbar spine somewhat guarded secondary to pain, deep tendon reflexes normal, strength in upper and lower extremities [5/5], [abnormal gait noted] Neurological: 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 We will schedule him for the injection and see him back in the clinic afterwards to reassess his symptoms. He has been instructed to contact the clinic if he has any concerns before his next appointment. Dr. Chahal has reviewed this note and agrees with this plan of care. This note was dictated using voice recognition software and make contain errors or omissions. [facility] History I have reviewed the patient's past medical history: Yes Medical History: Reports:: BPH, Gastroesophageal Reflux Disease(GERD), Hyperlipidemia, MRSA Denies:: Cancer, Diabetes Mellitus Type 1, Diabetes Mellitus Type 2, Internal Pacemaker, Seizures *Have you ever received a pneumonia vaccine?: Yes *Have you received a flu vaccine this season?: Yes Other Medical History: Reports: Arthritis, Other. Denies: Blood Transfusion Reaction Laterality Cases: Left: Other, Right: Carpal Tunnel Release, Total Hip Replacement Other Surgeries: Yes: Colonoscopy, Other. No: Pacemaker Amputation: Yes (left hand) Fractures: No - *Social History Smoking Status: Former smoker Tobacco Type: cigarettes # Packs/Day (cigarettes): 0 #Yrs smoked (if former smoker): 20 Alcohol Intake: never Alcohol Intake Frequency:: other *Occupational Status:: other Housing: house Household Members: spouse *Travel in the last 8 weeks: None Family Hx:: Diabetes, Heart Attack, Hyperlipidemia, Hypertension
== END ==
PROVIDERS: PCP Family Medicine; Referring Provider Podiatrist; Visit Provider Clinical Nurse Specialist Family Health
DX: M16.11 Unilateral primary osteoarthritis, right hip (principal); M51.16 Intervertebral disc disorders with radiculopathy, lumbar region; M25.512 Pain in left shoulder; Z98.890 Other specified postprocedural states
CPT/HCPCS: 73610; 99212

== ENCOUNTER → 2019-08-11 12:07 | Outpatient (CLI) | payer MEDICARE, BC, SELFPAY ==
--- NOTE | 2019-08-11 12:08 | CT_ITS ---
PROCEDURE: CT ANKLE RT WO CON Patient Age:73Y CLINICAL HISTORY: clsoed fx right ankle,Status post op follow-up of bimalleolar fracture ORIF surgery 05/27/2019. , diabetic. Neuropathy COMPARISON: XR ANKLE RT 2V from 05/27/2019 XR ANKLE RT MIN 3V from 05/27/2019 XR ANKLE WT BEARING RT MIN 3V from 07/13/2019 XR ANKLE WT BEARING RT MIN 3V from 07/28/2019 TECHNIQUE: No IV contrast but helical axial images obtained with sagittal and coronal reformats. All CT scans at the facility use one or more dose reduction, viz: automated exposure control, ma/kV adjustment per patient size (including targeted exams where dose is matched to indication, i.e. head), or iterative reconstruction technique. FINDINGS: The status post ORIF distal fibula shaft, the with long metallic plate applied to the lateral aspect of distal fibula/lateral malleolus, w secured by multiple screws. Also 2 longer screws here continue medially through fibula into & transversing the tibia at level of the distal metaphysis tibia to secure the tibial-fibular relationship at this level. Overall fairly good alignment a distal fibular fracture, with no significant the angulation at the fracture zone. Again note approximate 1/2 bone width lateral displacement and the less than the 1 cortical width posterior displacement distal lateral fibular fracture-this appears stable to the prior plain films There is a subtle lucent line persist at fracture zone at distal fibula suggesting incomplete osseous union at this point at majority this fracture. This lucency at the fracture line is most evident laterally. There is generous healing new bone and callus formation, most pronounced about the medial aspect of this healing distal fibular fracture.. Also note elongated osseous fragment along anterior inferior aspect of tibial-fibular articulation. (Sagittal image 21, axial 53-58). This fragment up to 2 cm length X just over 5 mm AP. Suspect this fragment most likely arises from the anterior lateral margin of the tibia-here at distal tibial fibular articulation, noting subtle defect at anterior medial corner tibia here reflecting its probable site of origin (axial slice 56) again note the tibial talar joint has been stabilized by the [id number] screws transversing fibula into tibia --- At the Medial malleolus note again the 2 a small anchors screws at tip of the medial malleolus, these are, most evident the more towardsanterior aspect medial malleolus. Only scant fragmentation off the tip of medial malleolus midportion otherwise noted. There does continue to be generous soft tissue swelling edema about the medial malleolus and lateral malleolus. Only minimal modest joint effusion suggested. Small vessel calcification about the ankle of reflects the history of diabetes ---. Mild sclerotic changes reflecting mild degenerative changes are seen about slightly narrowed ankle mortise. Narrowing slightly more evident laterally at the ankle joint; with suggestion of minimal degenerative subchondral cystic changes lateral articular margin distal here. There may also be some small subchondral cystic changes the talar dome,-both at its posterior lateral aspect, as well as possibly along its anterior medial corner. Suggestion of mild developing arthritic changes and subchondral cystic changes at the cuneiform bones. Minor degenerative changes suggested subtalar joint as well. There is a generous posterior process of the talus with arthritic changes seen at the talar calcaneal joint here.. IMPRESSION: ORIF bimalleolar fracture May 27 2019.: 1. ORIF distal fibular fracture. As detailed in body of report Subtle lucent fracture line remains evident
== END ==
PROVIDERS: PCP Family Medicine; Visit Provider Podiatrist
DX: G25.81 Restless legs syndrome (principal); G62.9 Polyneuropathy, unspecified; R26.89 Other abnormalities of gait and mobility; S82.841A Displaced bimalleolar fracture of right lower leg, initial encounter for closed fracture; Z98.890 Other specified postprocedural states
CPT/HCPCS: 73700

== ENCOUNTER → 2019-08-25 10:19 | Outpatient (CLI) | payer MEDICARE, BC, SELFPAY ==
--- NOTE | 2019-08-25 10:29 | XR_ITS ---
PROCEDURE: XR ANKLE WT BEARING RT MIN 3V CLINICAL INDICATION: fracture follow up COMPARISON: XR ANKLE RT MIN 3V from 05/27/2019 XR ANKLE WT BEARING RT MIN 3V from 06/16/2019 XR ANKLE WT BEARING RT MIN 3V from 07/13/2019 XR ANKLE WT BEARING RT MIN 3V from 07/28/2019 CT ANKLE RT WO CON from 08/11/2019 FINDINGS: Status post ORIF distal fibular fracture with lateral bone plate multiple screws, 2 transverse screws within the distal tibia and fibula as well as 2 anchor screws within the medial malleolar region. IMPRESSION: Good alignment status post ORIF healing distal fibular fracture Dictated by: Ashu Brewer MD 08/25/2019 15:36 Electronically signed by Ashu Brewer MD in [place] 08/25/2019 15:36
== END ==
PROVIDERS: PCP Family Medicine; Visit Provider Podiatrist
DX: Z98.890 Other specified postprocedural states (principal); M25.571 Pain in right ankle and joints of right foot
CPT/HCPCS: 73610

== ENCOUNTER → 2019-09-01 10:31 | Outpatient (POV) | payer MEDICARE, BC, SELFPAY ==
[2019-09-01 11:17] VITALS: BP 129/59; PULSE 57; RESP 18; O2SAT 99; BMI 41.5
--- NOTE | 2019-09-01 11:18 | XR_ITS ---
PROCEDURE: XR FOOT WT BEARING LT 3V CLINICAL INDICATION: left toe wound COMPARISON: FTL3 FOOT-LT-3 VIEWS from 12/01/2015 FTR3 FOOT-RT-3 VIEWS from 12/01/2015 FTL3 FOOT-LT-3 VIEWS from 02/23/2016 XR FOOT WT BEARING RT 3V from 06/16/2019 FINDINGS: No fracture or dislocation. No lytic or blastic change. There is normal mineralization. Postsurgical changes are seen involving the 1st metatarsal with metallic reduction hardware in place. Defect is seen along the medial distal 1st metatarsal. There is also less valgus deformity at the 1st metatarsophalangeal joint. Bony remodeling of the distal 1st metatarsal and the proximal phalanx 3rd digit is noted. There is flexion deformity at the distal interphalangeal joint of 3rd and 4th digit. There is osteoarthritis at the 1st metatarsophalangeal joint. Osteoarthritis is also seen at the Lisfranc joint and tarsals of the foot. Degenerative plantar calcaneal spurring is noted. Dystrophic calcifications seen along the dorsal posterior calcaneus. Other findings:None. IMPRESSION: Multiple postsurgical and degenerative findings. No acute bone pathology. Dictated by: Toni Nieto 09/01/2019 11:53 Electronically signed by Tnoi Nieto in [place] 09/01/2019 11:53
--- NOTE | 2019-09-01 12:15 | P.CONS_ITS ---
[facility] Pain Management SOAP Note Subjective:: Patient is a very pleasant 73-year-old white male who presents today for follow- up after injection of his right shoulder. Patient states he has no pain today. Patient states his only pain is when he is laying down going to sleep its in his neck and radiating into his arms. He is interested in a cervical epidural steroid injection. However patient does have a current ulceration on his right foot. Patient states that he does not have any active infection at this time. I did discuss with him that I would prefer him be cleared by Dr. Rosales for epidural injections and they understand this. Patient overall doing well. ROS General: no recent weight change, no fever, no sleep disturbances Respiratory: no cough, no shortness of air, no recurring pulmonary infections Cardiovascular/Peripheral Vascular: No chest pain, No palpitations, no edema, no shortness of breath. Gastrointestinal: no new onset incontinence, normal bowel movements reported Genitourinary: no new onset incontinence Musculoskeletal: Neck pain, arm pain Psychiatric: normal mood/ affect Neurological: [denies new onset weakness in extremities], [denies new onset balance issues] Objective:: Physical Exam General: Alert and oriented x3, no acute distress, pleasant and cooperative, [on room air] Lungs: Resps E/U, Symmetrical chest expansion, Eyes: PERRL Musculoskeletal: Flexion and extension of cervical spine somewhat guarded secondary to pain, deep tendon reflexes normal, strength in upper and lower extremities [5/5], Neurological: 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 Rosales. We will plan is for the end of September. Patient's been instructed to call the office if he has any issues prior to his next appointment. Patient is not on any anticoagulation therapy. Dr. Chahal has reviewed this note and agrees with this plan of care. This note was dictated using voice recognition software and may contain errors or omissions [facility] History I have reviewed the patient's past medical history: Yes Medical History: Reports:: BPH, Gastroesophageal Reflux Disease(GERD), Hyperlipidemia, MRSA Denies:: Cancer, Diabetes Mellitus Type 1, Diabetes Mellitus Type 2, Internal Pacemaker, Seizures *Have you ever received a pneumonia vaccine?: Yes *Have you received a flu vaccine this season?: Yes Other Medical History: Reports: Arthritis, Other. Denies: Blood Transfusion Reaction Laterality Cases: Left: Other, Right: Carpal Tunnel Release, Total Hip Replacement Other Surgeries: Yes: Colonoscopy, Other. No: Pacemaker Amputation: Yes (left hand) Fractures: No - *Social History Smoking Status: Former smoker Tobacco Type: cigarettes # Packs/Day (cigarettes): 0 #Yrs smoked (if former smoker): 20 Alcohol Intake: never Alcohol Intake Frequency:: other Substance Use Type: denies use *Occupational Status:: other Housing: house Household Members: spouse *Travel in the last 8 weeks: None Family Hx:: Diabetes, Heart Attack, Hyperlipidemia, Hypertension
== END ==
PROVIDERS: PCP Family Medicine; Referring Provider Podiatrist; Visit Provider Clinical Nurse Specialist Family Health
DX: L03.032 Cellulitis of left toe (principal); M50.10 Cervical disc disorder with radiculopathy, unspecified cervical region; N40.0 Benign prostatic hyperplasia without lower urinary tract symptoms; K21.9 Gastro-esophageal reflux disease without esophagitis; E78.5 Hyperlipidemia, unspecified; Z86.14 Personal history of Methicillin resistant Staphylococcus aureus infection
CPT/HCPCS: 73630; 99212

== ENCOUNTER → 2019-09-21 12:33 | Outpatient (CLI) | payer MEDICARE, BC, SELFPAY ==
--- NOTE | 2019-09-21 12:38 | XR_ITS ---
PROCEDURE: XR ANKLE WT BEARING RT MIN 3V CLINICAL INDICATION: post-op Follow-up surgery/ COMPARISON: XR ANKLE WT BEARING RT MIN 3V from 06/16/2019 XR ANKLE WT BEARING RT MIN 3V from 07/13/2019 XR ANKLE WT BEARING RT MIN 3V from 07/28/2019 XR ANKLE WT BEARING RT MIN 3V from 08/25/2019 FINDINGS: Lateral fibular bone plate remains in place with 2 transverse screws within the distal tibia. Ankle mortise is preserved. Two anchor screws are present in the medial malleolar region as before. Callus formation is present at the fibular fracture. Fracture line is still visible laterally. The talar dome has an unremarkable appearance. IMPRESSION: No change status post ORIF distal tib fib with healing fibular fracture as described Dictated by: Ashu Brewer MD 09/21/2019 14:08 Electronically signed by Ashu Brewer MD in [place] 09/21/2019 14:08
== END ==
PROVIDERS: PCP Family Medicine; Visit Provider Podiatrist
DX: Z98.890 Other specified postprocedural states (principal); S82.841G Displaced bimalleolar fracture of right lower leg, subsequent encounter for closed fracture with delayed healing
CPT/HCPCS: 73610

== ENCOUNTER → 2019-10-20 09:30 | Outpatient (CLI) | payer MEDICARE, BC, SELFPAY ==
--- NOTE | 2019-10-20 09:38 | XR_ITS ---
PROCEDURE: XR ANKLE WT BEARING RT MIN 3V CLINICAL INDICATION: postop surgery Follow-up surgery, prior fall with injury and pain COMPARISON: XR ANKLE WT BEARING RT MIN 3V from 07/13/2019 XR ANKLE WT BEARING RT MIN 3V from 07/28/2019 XR ANKLE WT BEARING RT MIN 3V from 08/25/2019 FINDINGS: Status post ORIF distal tib fib with lateral bone plate at the fibula and 2 longer screws within the fibula into the tibia. There are 2 anchor screws at the medial malleolar region. There is a healing distal fibular fracture. Good alignment. Ankle mortise is preserved. The talar dome has an unremarkable appearance. There are degenerative changes of the midfoot. IMPRESSION: Healing distal fibular fracture with postsurgical changes Dictated by: Ashu Brewer MD 10/20/2019 10:38 Electronically signed by Ashu Brewer MD in [place] 10/20/2019 10:38
--- NOTE | 2019-10-20 09:38 | XR_ITS ---
PROCEDURE: XR FOOT WT BEARING RT 3V CLINICAL INDICATION: postop surgery Follow-up surgery, recent fall with injury and pain COMPARISON: FTR3 FOOT-RT-3 VIEWS from 12/01/2015 FTL3 FOOT-LT-3 VIEWS from 02/23/2016 XR FOOT WT BEARING RT 3V from 06/16/2019 XR FOOT WT BEARING LT 3V from 09/01/2019 FINDINGS: Postsurgical changes of the ankle as described in that report. Degenerative changes are present involving the midfoot with subchondral cystic changes of the navicular cuneiform joint with with osteoarthritis. No obvious fracture or dislocation. Flexion deformity noted of the toes IMPRESSION: Degenerative changes of the midfoot with some sclerosis and subchondral cystic change. This could be due to arthritic changes. Developing Charcot joint also considered. Please correlate with clinical parameters Dictated by: Ashu Brewer MD 10/20/2019 10:43 Electronically signed by Ashu Brewer MD in [place] 10/20/2019 10:43
== END ==
PROVIDERS: PCP Family Medicine; Visit Provider Podiatrist
DX: Z98.890 Other specified postprocedural states; L97.319 Non-pressure chronic ulcer of right ankle with unspecified severity; M14.671 Charcot's joint, right ankle and foot
CPT/HCPCS: 73610; 73630

== ENCOUNTER 2019-11-28 18:55 | Emergency (ER) | payer MEDICARE, BC, SELFPAY ==
[2019-11-28 18:58] VITALS: BP 138/89; PULSE 73; RESP 17; TEMP 36.6; O2SAT 98; BMI 43.0
[2019-11-28 19:30] VITALS: BP 124/86; PULSE 68; RESP 18; O2SAT 99
[2019-11-28 19:34] LABS: Basophils # 0.1 K/mm3 (0-0.2); Basophils % 0.8 % (0.1-2.0); Eosinophils # 0.3 K/mm3 (0.0-0.4); Eosinophils % 4.7 % (0.1-12.0); Hemoglobin 13.3 g/dL (14.1-18.0); Lymphocytes # 2.1 K/mm3 (0.7-4.5); Lymphocytes % 30.4 % (10-50); Mean Corpuscular HGB Conc 33.3 g/dL (31.8-35.4); Mean Corpuscular Hemoglobin 31.9 pg (27.0-31.2); Mean Corpuscular Volume 95.7 fl (80-94); Mean Platelet Volume 8.8 fl (7.4-10.4); Monocytes # 0.4 K/mm3 (0.1-1.0); Neutrophils % 58.1 % (37.0-80.0); Platelet Count 130 K/mm3 (142-424); Red Blood Count 4.18 M/mm3 (4.60-6.20); Red Cell Distribution Width 13.5 % (11.5-17.5); White Blood Count 6.8 K/mm3 (4.8-10.8)
[2019-11-28 19:38] LABS: Alanine Aminotransferase 35 U/L (12-78); Albumin Level 4.9 g/dl (3.5-5.0); Albumin/Globulin Ratio 1.5 (1.1-1.8); Alkaline Phosphatase 117 U/L (38-126); Anion Gap 13.5 mEq/L (5-15); Aspartate Amino Transferase 45 U/L (17-59); Bilirubin,Total 0.3 mg/dl (0.2-1.3); Blood Urea Nitrogen 31 mg/dl (9-20); Calcium 9.7 mg/dl (8.4-10.2); Carbon Dioxide 29 mmol/L (22.0-30.0); Chloride 100 mmol/L (98-107); Creatinine Clearance Estimated 51 mL/min (50-200); Estimated Glomerular Filt Rate 54 ml/min (>60); GFR (African American) 65 ML/MIN (>60); Globulin 3.2 g/dL (1.3-3.2); Glucose 116 mg/dl (74-100); Potassium 4.5 mmoL/L (3.5-5.1); Sodium 138 mmol/L (136-145); Total Protein,Serum 8.1 g/dl (6.3-8.2)
[2019-11-28 19:52] LABS: Lactic Acid 1.7 mmol/L (0.7-2.1)
[2019-11-28 20:00] VITALS: BP 120/73; PULSE 64; RESP 18; O2SAT 99
--- NOTE | 2019-11-28 20:12 | HMH.EDGENADL ---
ED Disposition Clinical Impression: Edema Disposition: Home, Self-Care Condition on Discharge: Good Instructions: DI for Laceration Repair Additional Instructions: Please wear your compression stockings every day. Referrals: Darren Dowd MD [Primary Care Provider] - - Critical Care Critical Care Time: No Attestation: On 11/28/19, the high probability of a clinically significant, sudden or life threatening deterioration of the following system(s) required my full and direct attention, intervention and personal management. The time I documented below is in addition to time spent performing reported procedures but includes the following listed in this critical care notation. Medical Decision Making - Medical Records Medical records reviewed: Yes: I reviewed the patient's medical records. - Samy Inquiry Pt receiving controlled substance: No Vital Signs: 11/28/19 18:58 Temperature 97.9 F Temperature Source Oral Pulse Rate [Left Radial] 73 Respiratory Rate 17 Blood Pressure [Right Arm] 138/89 Blood Pressure Mean [Right Arm] 105 Blood Pressure Source [Right Arm] Automatic Cuff Blood Pressure Position [Right Arm] Sitting 02 Sat by Pulse Oximetry 98 Oxygen Delivery Method Room Air - Lab Data Lab Results 11/28/19 19:10: WBC 6.8, RBC 4.18 L, Hgb 13.3 L, Hct 40.0 L, MCV 95.7 H, MCH 31.9 H, MCHC 33.3, RDW 13.5, Plt Count 130 L, MPV 8.8, Neut % (Auto) 58.1, Lymph % (Auto) 30.4, Mellette % (Auto) 6.0, Eos % (Auto) 4.7, Baso % (Auto) 0.8, Neut # (Auto) 4.0, Lymph # (Auto) 2.1, Mellette # (Auto) 0.4, Eos # (Auto) 0.3, Baso # (Auto) 0.1 11/28/19 19:10: Sodium 138, Potassium 4.5, Chloride 100, Carbon Dioxide 29, Anion Gap 13.5, BUN 31 H, Creatinine 1.30 H, Estimated Creat Clear 51, Estimated GFR 54 L, Est GFR ( Amer) 65, Glucose 116 H, Calcium 9.7, Total Bilirubin 0.3, AST 45, ALT 35, Alkaline Phosphatase 117, Total Protein 8.1, Albumin 4.9, Globulin 3.2, Albumin/Globulin Ratio 1.5 11/28/19 19:10: Lactate 1.7 Result diagrams: 11/28/19 19:10 11/28/19 19:10 Orders (Tests/Meds): ED MEDICATIONS Discontinued Medications Generic Name Dose Route Start Last Admin Trade Name Hallie PRN Reason Stop Dose Admin Furosemide 40 mg 11/28/19 19:31 11/28/19 19:35 Lasix 40mg/4ml Vial IV 11/28/19 19:32 40 mg ONCE ONE Administration Sodium Chloride 1,000 mls @ 999 mls/hr 11/28/19 19:30 Sod Chlor 0.9% 1000ml Bag IV 11/28/19 20:30 .[id number] MAGDI ORDERS Category Date Time Status Blood Culture Stat Micro 11/28/19 19:10 Received General Adult HPI - General Chief complaint: Wound/Laceration Stated complaint: sURG ON R FOOT POSSIBLE INFECTION Time Seen by Provider: 11/28/19 19:00 Mode of Arrival: Ambulatory Source of Information: Patient Limitations: No Limitations Description of Symptoms (Recalled from ER Triage Doc. by RN): pt has a red/ painful wound to his right knee that is 6 months post op. pt has bilateral edema to both lower extremities. - History of Present Illness HPI narrative: 74-year-old pleasant gentleman presents the ED with bilateral lower leg extremities edema. He denies any pain. He states that his legs been swelling on and off for several years now he also states that he does have compression stockings but he never wears them. Patient denies any other symptoms. Patient denies any pain. Patient denies any recent fever shakes or chills. Patient denies any sort of infectious process. - Related Data Home Medications Medication Instructions Recorded Confirmed acetaminophen 650 mg 325 mg PO Q4HP PRN 08/15/17 11/10/19 tablet,extended release atorvastatin 10 mg tablet 10 mg PO HS 08/15/17 11/10/19 cetirizine 10 mg chewable tablet 1 tab PO HS tab 08/15/17 11/10/19 cholecalciferol (vitamin D3) 25 1,000 unit PO DAILY 08/15/17 11/10/19 mcg (1,000 unit) capsule melatonin 5 mg capsule 6 mg PO HS 08/15/17 11/10/19 meloxicam 15 mg tablet 15 mg PO DAILY 08/15/17
--- NOTE | 2019-11-28 20:15 | PC.NURSE ---
per pt request this nurse went and updated the pts daughter and on pt condition and discharge plans. and educated family that they need to leave stockings on and follow up with with PCP
--- NOTE | 2019-11-28 20:29 | PC.NURSE ---
Bilateral knee high RAMO hose placed on pt.
[2019-11-28 20:30] VITALS: BP 120/73; PULSE 67; RESP 16; TEMP 36.6; O2SAT 99
== END 2019-11-28 20:32 | disposition home or self-care (01) ==
PROVIDERS: Emergency Provider Family Medicine; PCP Family Medicine
DX: L03.115 Cellulitis of right lower limb (principal); R60.9 Edema, unspecified; K21.9 Gastro-esophageal reflux disease without esophagitis; E78.5 Hyperlipidemia, unspecified; Z79.899 Other long term (current) drug therapy
CPT/HCPCS: 80053; 83605; 85025; 87040; 96374; 99284

== ENCOUNTER → 2019-12-24 11:57 | Outpatient (CLI) | payer MEDICARE, BC, SELFPAY ==
--- NOTE | 2019-12-24 12:00 | US_ITS ---
APPROVED REPORT Exam Type: Ankle to Brachial Index Forms Examiner: Rosy Julio RT(R) Indications bilateral claudication, bilateral rest pain. Wounds on right great toe and left 3rd toe. Risk Factors Hypertension Hyperlipidemia Obesity History of Smoking Pressures/Indices Right Indices Left Indices Brachial 172.00 mmHg Brachial 170.00 mmHg Low Thigh 193.00 mmHg 1.12 Low Thigh 172.00 mmHg 1.00 Calf 179.00 mmHg 1.04 Calf 198.00 mmHg 1.15 Ankle(PT) 205.00 mmHg 1.19 Ankle(PT) 177.00 mmHg 1.03 Ankle(DP) 178.00 mmHg 1.03 Ankle(DP) 202.00 mmHg 1.17 Digit 161.00 mmHg 0.94 Digit 160.00 mmHg 0.93 Findings RT LEON=1.2 LT LEON=1.0 RT TBI=0.9 LT TBI=0.9 Normal pulses Normal waveforms Conclusion Normal appearing resting noninvasive lower extremity arterial study. Electronically signed by : Ashu Brewer MD 12/24/2019 16:56:10
== END ==
PROVIDERS: PCP Family Medicine; Visit Provider Podiatrist
DX: L97.312 Non-pressure chronic ulcer of right ankle with fat layer exposed (principal)
CPT/HCPCS: 93923

== ENCOUNTER → 2020-02-02 10:28 | Outpatient (CLI) | payer MEDICARE, BC, SELFPAY ==
[2020-02-02 11:17] LABS: Basophils % 0.6 % (0.1-2.0); Eosinophils # 0.3 K/mm3 (0.0-0.4); Eosinophils % 4.5 % (0.1-12.0); Hematocrit 38.1 % (42.0-52.0); Lymphocytes # 1.9 K/mm3 (0.7-4.5); Lymphocytes % 27.9 % (10-50); Mean Corpuscular Hemoglobin 32.9 pg (27.0-31.2); Mean Corpuscular Volume 96.6 fl (80-94); Mean Platelet Volume 8.4 fl (7.4-10.4); Monocytes # 0.4 K/mm3 (0.1-1.0); Monocytes % 5.2 % (1.7-9.3); Neutrophils # 4.2 K/mm3 (1.8-7.8); Neutrophils % 61.8 % (37.0-80.0); Platelet Count 128 K/mm3 (142-424); Red Blood Count 3.94 M/mm3 (4.60-6.20); Red Cell Distribution Width 13.5 % (11.5-17.5); White Blood Count 6.9 K/mm3 (4.8-10.8)
[2020-02-02 11:34] LABS: Hemoglobin A1C 5.8 % (4.0-6.0)
[2020-02-02 11:50] LABS: Alanine Aminotransferase 28 U/L (12-78); Albumin Level 4.7 g/dl (3.5-5.0); Albumin/Globulin Ratio 1.5 (1.1-1.8); Alkaline Phosphatase 125 U/L (38-126); Anion Gap 14.3 mEq/L (5-15); Aspartate Amino Transferase 36 U/L (17-59); Bilirubin,Total 0.3 mg/dl (0.2-1.3); Blood Urea Nitrogen 38 mg/dl (9-20); Calcium 9.6 mg/dl (8.4-10.2); Carbon Dioxide 23 mmol/L (22.0-30.0); Chloride 104 mmol/L (98-107); Estimated Glomerular Filt Rate 46 ml/min (>60); GFR (African American) 55 ML/MIN (>60); Globulin 3.2 g/dL (1.3-3.2); Glucose 108 mg/dl (74-100); Potassium 5.3 mmoL/L (3.5-5.1); Sodium 136 mmol/L (136-145); Total Protein,Serum 7.9 g/dl (6.3-8.2)
[2020-02-02 11:55] LABS: Erythrocyte Sedimentation Rate 26 mm/hr (0-20)
== END ==
PROVIDERS: Visit Provider Podiatrist
DX: M25.562 Pain in left knee (principal); E11.8 Type 2 diabetes mellitus with unspecified complications; Z51.89 Encounter for other specified aftercare
CPT/HCPCS: 36415; 80053; 83036; 85025; 85651; 86140

== ENCOUNTER → 2020-03-03 17:19 | Outpatient (CLI) | payer MEDICARE, BC, SELFPAY | PROVIDERS: Visit Provider Podiatrist | DX: L97.518 Non-pressure chronic ulcer of other part of right foot with other specified severity (principal); L97.528 Non-pressure chronic ulcer of other part of left foot with other specified severity; L84 Corns and callosities | CPT/HCPCS: 87070; 87077; 87186; 87205 ==

== ENCOUNTER → 2020-04-26 16:01 | Outpatient (CLI) | payer MEDICARE, BC, SELFPAY ==
[2020-04-26 16:24] LABS: Basophils % 0.4 % (0.1-2.0); Eosinophils # 0.3 K/mm3 (0.0-0.4); Eosinophils % 4.2 % (0.1-12.0); Hematocrit 37.2 % (42.0-52.0); Hemoglobin 12.6 g/dL (14.1-18.0); Lymphocytes # 1.5 K/mm3 (0.7-4.5); Lymphocytes % 21.3 % (10-50); Mean Corpuscular HGB Conc 33.9 g/dL (31.8-35.4); Mean Corpuscular Hemoglobin 32.3 pg (27.0-31.2); Mean Corpuscular Volume 95.1 fl (80-94); Mean Platelet Volume 9.4 fl (7.4-10.4); Monocytes # 0.4 K/mm3 (0.1-1.0); Neutrophils # 4.9 K/mm3 (1.8-7.8); Neutrophils % 68.2 % (37.0-80.0); Platelet Count 122 K/mm3 (142-424); Red Blood Count 3.91 M/mm3 (4.60-6.20); Red Cell Distribution Width 14.7 % (11.5-17.5); White Blood Count 7.2 K/mm3 (4.8-10.8)
[2020-04-26 16:53] LABS: Chloride 105 mmol/L (98-107); Sodium 141 mmol/L (136-145)
[2020-04-26 16:54] LABS: Potassium 4.9 mmoL/L (3.5-5.1)
[2020-04-26 16:56] LABS: Alanine Aminotransferase 31 U/L (12-78); Albumin Level 4.2 g/dl (3.5-5.0); Albumin/Globulin Ratio 1.4 (1.1-1.8); Alkaline Phosphatase 105 U/L (38-126); Anion Gap 12.9 mEq/L (5-15); Aspartate Amino Transferase 38 U/L (17-59); Bilirubin,Total 0.3 mg/dl (0.2-1.3); Blood Urea Nitrogen 23 mg/dl (9-20); Carbon Dioxide 28 mmol/L (22.0-30.0); Estimated Glomerular Filt Rate 59 ml/min (>60); GFR (African American) 71 ML/MIN (>60); Total Protein,Serum 7.2 g/dl (6.3-8.2)
[2020-04-26 16:57] LABS: Calcium 9.2 mg/dl (8.4-10.2); Glucose 105 mg/dl (74-100)
[2020-04-26 17:02] LABS: C-Reactive Protein 3.6 mg/L (0-4)
[2020-04-26 17:19] LABS: Erythrocyte Sedimentation Rate 21 mm/hr (0-20)
[2020-04-26 18:12] LABS: Uric Acid 8.9 mg/dl (3.5-8.5)
== END ==
PROVIDERS: Visit Provider Nurse Practitioner
DX: M25.562 Pain in left knee (principal); Z51.89 Encounter for other specified aftercare
CPT/HCPCS: 36415; 80053; 84550; 85025; 85651; 86140

== ENCOUNTER → 2020-05-10 20:31 | Outpatient (CLI) | payer MEDICARE, BC, SELFPAY | PROVIDERS: Visit Provider Nurse Practitioner | DX: Z51.89 Encounter for other specified aftercare (principal) | CPT/HCPCS: 87070; 87077; 87186; 87205 ==

== ENCOUNTER → 2020-05-30 12:24 | Outpatient (CLI) | payer MEDICARE, BC, SELFPAY ==
--- NOTE | 2020-05-30 12:33 | XR_ITS ---
PROCEDURE: XR ANKLE WT BEARING RT MIN 3V CLINICAL INDICATION: ankle pain and swelling COMPARISON: CR XR ANKLE WT BEARING RT MIN 3V from 07/28/2019 CR XR ANKLE WT BEARING RT MIN 3V from 08/25/2019 CR XR ANKLE WT BEARING RT MIN 3V from 09/21/2019 CR XR ANKLE WT BEARING RT MIN 3V from 10/20/2019 FINDINGS: There are postsurgical changes with a lateral bone plate at the distal fibula with multiple cortical screws. Twos transverse screws extend into the distal tibia as well. The distal most of these 2 screws is fractured within the tibia with separation of the fractures screw fragments by 5 mm. The 2nd screw within the distal tibia which is the most proximal of the 2 tibial screws has developed a zone of lucency and has also distracted from the tibia by approximately 4 5 mm. The ankle mortise has widened with eversion of the talus. 2 anchor screws are present at the medial malleolar region. IMPRESSION: Hardware malfunction with fractured most distal tibial fibular screw and mild separation of the fracture fragments along with mild distraction of the other tibial screw with zone of lucency noted. This may be due to infection and/or loosening. Ankle mortise is widened with eversion of the talus. Dictated by: Ashu Brewer MD 05/30/2020 16:32 Ashu Brewer MD in [facility] 05/30/2020 16:32
--- NOTE | 2020-05-30 12:33 | XR_ITS ---
PROCEDURE: XR FOOT WT BEARING RT 3V CLINICAL INDICATION: foot pain COMPARISON: CR FTL3 FOOT-LT-3 VIEWS from 02/23/2016 CR XR FOOT WT BEARING RT 3V from 06/16/2019 CR XR FOOT WT BEARING LT 3V from 09/01/2019 CR XR FOOT WT BEARING RT 3V from 10/20/2019 FINDINGS: No fracture or dislocation. No lytic or blastic change. There is normal mineralization. There is hammertoe deformity of all the toes with mild osteoarthritic change of the 1st MTP joint and at the tarsometatarsal junction with mild pes planus. There is a small calcaneal spur and Achilles enthesophyte. Other findings:None. IMPRESSION: Degenerative changes with pes planus Dictated by: Ashu Brewer MD 05/30/2020 16:34 Ashu Brewer MD in [place] 05/30/2020 16:34
[2020-05-30 13:39] LABS: Basophils % 0.5 % (0.1-2.0); Eosinophils # 0.3 K/mm3 (0.0-0.4); Eosinophils % 5.6 % (0.1-12.0); Hematocrit 42.2 % (42.0-52.0); Hemoglobin 13.5 g/dL (14.1-18.0); Lymphocytes # 1.6 K/mm3 (0.7-4.5); Lymphocytes % 33.6 % (10-50); Mean Corpuscular Hemoglobin 31.2 pg (27.0-31.2); Mean Corpuscular Volume 97.5 fl (80-94); Monocytes # 0.3 K/mm3 (0.1-1.0); Monocytes % 6.3 % (1.7-9.3); Neutrophils # 2.6 K/mm3 (1.8-7.8); Platelet Count 109 K/mm3 (142-424); Red Blood Count 4.33 M/mm3 (4.60-6.20); Red Cell Distribution Width 14.5 % (11.5-17.5); White Blood Count 4.8 K/mm3 (4.8-10.8)
[2020-05-30 14:00] LABS: Chloride 103 mmol/L (98-107); Potassium 5.4 mmoL/L (3.5-5.1); Sodium 139 mmol/L (136-145)
[2020-05-30 14:03] LABS: Alanine Aminotransferase 26 U/L (12-78); Albumin Level 4.5 g/dl (3.5-5.0); Albumin/Globulin Ratio 1.5 (1.1-1.8); Alkaline Phosphatase 131 U/L (38-126); Anion Gap 14.4 mEq/L (5-15); Aspartate Amino Transferase 39 U/L (17-59); Bilirubin,Total 0.4 mg/dl (0.2-1.3); Blood Urea Nitrogen 26 mg/dl (9-20); Calcium 9.5 mg/dl (8.4-10.2); Carbon Dioxide 27 mmol/L (22.0-30.0); Estimated Glomerular Filt Rate 49 ml/min (>60); GFR (African American) 60 ML/MIN (>60); Globulin 3.1 g/dL (1.3-3.2); Glucose 97 mg/dl (74-100); Total Protein,Serum 7.6 g/dl (6.3-8.2)
[2020-05-30 14:09] LABS: C-Reactive Protein 1.2 mg/L (0-4)
[2020-05-30 14:12] LABS: Erythrocyte Sedimentation Rate 16 mm/hr (0-20)
== END ==
PROVIDERS: PCP Family Medicine; Visit Provider Nurse Practitioner
DX: M14.671 Charcot's joint, right ankle and foot (principal); M25.562 Pain in left knee; Z51.89 Encounter for other specified aftercare
CPT/HCPCS: 36415; 73610; 73630; 80053; 85025; 85651; 86140

== ENCOUNTER → 2020-06-15 15:25 | Outpatient (CLI) | payer MEDICARE, BC, SELFPAY ==
--- NOTE | 2020-06-15 15:51 | XR_ITS ---
PROCEDURE: XR ANKLE WT BEARING RT MIN 3V CLINICAL INDICATION: ankle pain Pain and swelling COMPARISON: CR XR ANKLE WT BEARING RT MIN 3V from 08/25/2019 CR XR ANKLE WT BEARING RT MIN 3V from 09/21/2019 CR XR ANKLE WT BEARING RT MIN 3V from 10/20/2019 CR XR ANKLE WT BEARING RT MIN 3V from 05/30/2020 CR XR FOOT WT BEARING RT 3V from 06/15/2020 FINDINGS: There has been prior ORIF of the right ankle with lateral fibular bone plate with multiple cortical screws and transverse screws through the distal tibia and fibula. The distal most transverse fracture through the fibula into the tibia has broken with areas of lucency around both of the screws in the fibula and tibia. This is similar compared to the previous exam. There is mild widening of the ankle mortise. Osteoarthritic changes are present at the 1st MTP. Hammertoe deformity is noted. There are degenerative changes of the midfoot. Small calcaneal spurs noted and Achilles enthesophyte. There are 2 anchor screws also in the medial malleolus. IMPRESSION: Overall no significant change in hardware malfunction at the tib fib distally as described above. There is a fractured screw distally along with lucency around the tib fib screws which may be due to infection and/or loosening Dictated by: Ashu Brewer MD 06/16/2020 06:07 Ashu Brewer MD in [facility] 06/16/2020 06:07
[2020-06-15 17:06] LABS: Basophils % 0.5 % (0.1-2.0); Eosinophils # 0.3 K/mm3 (0.0-0.4); Eosinophils % 4.9 % (0.1-12.0); Hematocrit 39.6 % (42.0-52.0); Hemoglobin 12.6 g/dL (14.1-18.0); Lymphocytes # 1.6 K/mm3 (0.7-4.5); Lymphocytes % 27.5 % (10-50); Mean Corpuscular HGB Conc 31.9 g/dL (31.8-35.4); Mean Corpuscular Hemoglobin 31.1 pg (27.0-31.2); Mean Corpuscular Volume 97.5 fl (80-94); Mean Platelet Volume 8.2 fl (7.4-10.4); Monocytes # 0.4 K/mm3 (0.1-1.0); Neutrophils # 3.5 K/mm3 (1.8-7.8); Platelet Count 108 K/mm3 (142-424); Red Blood Count 4.06 M/mm3 (4.60-6.20); Red Cell Distribution Width 14.3 % (11.5-17.5); White Blood Count 5.8 K/mm3 (4.8-10.8)
[2020-06-15 17:26] LABS: Alanine Aminotransferase 36 U/L (12-78); Albumin Level 4.6 g/dl (3.5-5.0); Albumin/Globulin Ratio 1.5 (1.1-1.8); Alkaline Phosphatase 113 U/L (38-126); Aspartate Amino Transferase 50 U/L (17-59); Bilirubin,Total 0.5 mg/dl (0.2-1.3); Blood Urea Nitrogen 34 mg/dl (9-20); Calcium 9.5 mg/dl (8.4-10.2); Carbon Dioxide 25 mmol/L (22.0-30.0); Chloride 103 mmol/L (98-107); Estimated Glomerular Filt Rate 49 ml/min (>60); GFR (African American) 60 ML/MIN (>60); Glucose 93 mg/dl (74-100); Sodium 140 mmol/L (136-145); Total Protein,Serum 7.6 g/dl (6.3-8.2)
[2020-06-15 17:31] LABS: C-Reactive Protein 3.8 mg/L (0-4)
[2020-06-15 20:37] LABS: Erythrocyte Sedimentation Rate 16 mm/hr (0-20)
== END ==
PROVIDERS: Visit Provider Nurse Practitioner
DX: Z51.89 Encounter for other specified aftercare; M79.671 Pain in right foot; M25.571 Pain in right ankle and joints of right foot
CPT/HCPCS: 36415; 73610; 73630; 80053; 85025; 85651; 86140

== ENCOUNTER 2020-07-02 03:25 | Emergency (ER) | payer MEDICARE, BC, SELFPAY ==
[2020-07-02 03:22] VITALS: BP 109/57; BP 88/50; PULSE 65; PULSE 76; RESP 15; RESP 16; TEMP 37.1; O2SAT 97; O2SAT 98; BMI 45.4
[2020-07-02 03:27] VITALS: BMI 45.6
--- NOTE | 2020-07-02 03:27 | XR_ITS ---
PROCEDURE: XR CHEST PORTABLE CLINICAL HISTORY: fell and hit head COMPARISON: CR [id number] XR chest portable PICC plac from 06/17/2018 CR XR CHEST 2V from 05/25/2019 CR XR CHEST 2V from 07/13/2019 FINDINGS: The cardiomediastinal silhouette and pulmonary vascularity are within normal limits. The lungs are clear without infiltrates, suspicious nodules, or pleural effusions. No acute bony abnormalities. There multilevel degenerate changes of the mid lower thoracic spine. There is no obvious rib fracture though the lower 2-3 ribs are not well seen bilaterally. IMPRESSION: No acute findings. Dictated by: Dr. Jim Choi MD 07/02/2020 08:02 Dr. Jim Choi MD in [place] 07/02/2020 08:02
--- NOTE | 2020-07-02 03:27 | CT_ITS ---
PROCEDURE: CT CERVICAL SPINE WO CON CLINICAL INDICATION: fall hitting head COMPARISON: No exams were available for comparison TECHNIQUE: Axial images obtained with sagittal and coronal reformats. All CT scans at the facility use one or more dose reduction, viz: automated exposure control, ma/kV adjustment per patient size (including targeted exams where dose is matched to indication, i.e. head), or iterative reconstruction technique. Axial spiral CT scanning performed of the cervical spine beginning at the base of the skull and continuing to the upper T-spine. 3-D multiplanar reconstruction with 3-D manipulation of volumetric data set in image rendering was completed by the radiologist and/or technologist with the supervision of the radiologist on independent workstation. FINDINGS: No fracture nor subluxation is evident. Normal prevertebral soft tissues. There is straightening of the normal curvature suggesting possible muscle spasm. There is disc space narrowing at the C5-6 and C6-7 levels with anterior and posterior osteophytic spurring at these levels. Facets, neural foramen and vertebral bodies intact and unremarkable. Normal C1/C2 relationships. Apices of lungs are clear with no acute findings. There is a 1.5 cm low-density nodule right lobe of the thyroid gland near the isthmus probably a cyst, ultrasound could be considered for confirmation. IMPRESSION: Probable muscle spasm along with multilevel degenerate changes mid cervical spine, no acute fracture or subluxation seen Dictated by: Dr. Jim Choi MD 07/02/2020 08:00 Dr. Jim Choi MD in [place] 07/02/2020 08:00
--- NOTE | 2020-07-02 03:27 | CT_ITS ---
PROCEDURE: CT HEAD/BRAIN WO CON CLINICAL INDICATION: fall Hitting top of head COMPARISON: CT HEADWO CT head/brain wo con from 05/23/2018 TECHNIQUE: Axial images obtained. All CT scans at the facility use one or more dose reduction, viz: automated exposure control, ma/kV adjustment per patient size (including targeted exams where dose is matched to indication, i.e. head), or iterative reconstruction technique. FINDINGS: No midline shift, mass effect, intracranial hemorrhage, hydrocephalus, or extra-axial fluid collection is evident. Sylvian fissures and cortical sulci are somewhat prominent. There are mild periventricular hypodensities consistent with chronic ischemic white matter changes. The calvarium has an unremarkable appearance. There is soft tissue swelling of the scalp near the vertex left-side with possible laceration. No mastoid effusion. No sinus air-fluid level. IMPRESSION: Findings of mild to moderate cortical atrophy, no acute intracranial pathology noted, probable scalp contusion and/or laceration Dictated by: Dr. Jim Choi MD 07/02/2020 07:56 Dr. Jim Choi MD in [place] 07/02/2020 07:56
--- NOTE | 2020-07-02 03:27 | XR_ITS ---
PROCEDURE: XR PELVIS 1-2V CLINICAL INDICATION: fall COMPARISON: CR HIPCMLT XR hip LT 2-3V w/pelvis from 05/29/2018 TECHNIQUE: XR Pelvis AP View FINDINGS: No fracture or dislocation is evident. 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 The medullary stem is well positioned within the proximal femur with no evidence of loosening. The left hip is intact. The iliac bones and pubic bones appear intact, there is mild sclerosis of the symphysis pubis. . No lytic or blastic change. IMPRESSION: No acute findings. Dictated by: Dr. Jim Choi MD 07/02/2020 08:03 Dr. Jim Choi MD in [place] 07/02/2020 08:03
--- NOTE | 2020-07-02 03:35 | PC.NURSE ---
wound cleansed with hibiclens and saline.
--- NOTE | 2020-07-02 03:36 | ECG_ITS ---
APPROVED REPORT Exam: Resting ECG HR:63 bpm ECG Measurements Heart Rate 63 AXES MD 184 P 46 QRSd 86 QRS 29 QT 426 T 32 QTc 435 Conclusion Normal sinus rhythm T wave abnormality, consider anterior ischemia Abnormal ECG Electronically signed by : Jay Arciniega, 07/02/2020 18:58:01
--- NOTE | 2020-07-02 03:45 | PC.NURSE ---
iv initiated, labs drawn,fluids given. ekg performed. taken via stretcher and radio communications superintendent to ct scan. a&o x4. no acute distress.
[2020-07-02 03:49] LABS: Basophils % 0.7 % (0.1-2.0); Eosinophils # 0.4 K/mm3 (0.0-0.4); Eosinophils % 5.5 % (0.1-12.0); Hematocrit 41.6 % (42.0-52.0); Hemoglobin 13.6 g/dL (14.1-18.0); Lymphocytes # 1.8 K/mm3 (0.7-4.5); Lymphocytes % 28.3 % (10-50); Mean Corpuscular HGB Conc 32.6 g/dL (31.8-35.4); Mean Corpuscular Hemoglobin 31.7 pg (27.0-31.2); Mean Corpuscular Volume 97.2 fl (80-94); Mean Platelet Volume 8.4 fl (7.4-10.4); Monocytes # 0.4 K/mm3 (0.1-1.0); Monocytes % 6.8 % (1.7-9.3); Neutrophils # 3.7 K/mm3 (1.8-7.8); Neutrophils % 58.6 % (37.0-80.0); Platelet Count 110 K/mm3 (142-424); Red Blood Count 4.28 M/mm3 (4.60-6.20); Red Cell Distribution Width 14.1 % (11.5-17.5); White Blood Count 6.3 K/mm3 (4.8-10.8)
[2020-07-02 03:54] LABS: Alanine Aminotransferase 41 U/L (12-78); Anion Gap 14.4 mEq/L (5-15); Aspartate Amino Transferase 50 U/L (17-59); Bilirubin,Direct 0.1 mg/dl (0.0-0.4); Bilirubin,Indirect 0.3 mg/dL (0.0-0.9); Bilirubin,Total 0.4 mg/dl (0.2-1.3); Bilirubin,Unconjugated 0.4 mg/dL (0.0-1.1); Blood Urea Nitrogen 35 mg/dl (9-20); Calcium 9.7 mg/dl (8.4-10.2); Carbon Dioxide 28 mmol/L (22.0-30.0); Chloride 102 mmol/L (98-107); Creatinine Clearance Estimated 41 mL/min (50-200); Estimated Glomerular Filt Rate 46 ml/min (>60); GFR (African American) 55 ML/MIN (>60); Glucose 118 mg/dl (74-100); Potassium 5.4 mmoL/L (3.5-5.1); Sodium 139 mmol/L (136-145)
[2020-07-02 03:55] LABS: Albumin Level 4.5 g/dl (3.5-5.0); Alkaline Phosphatase 127 U/L (38-126); Total Protein,Serum 7.6 g/dl (6.3-8.2)
[2020-07-02 04:11] LABS: Troponin I < 0.01 ng/ml (0.00-0.034)
[2020-07-02 04:18] LABS: Coronavirus 19 IgG Antibody Negative (Negative); Coronavirus 19 IgM Antibody Negative (Negative)
--- NOTE | 2020-07-02 04:20 | PC.NURSE ---
pt back from RAD
[2020-07-02 04:22] VITALS: BP 135/74; PULSE 61; RESP 16; O2SAT 92
--- NOTE | 2020-07-02 04:41 | PC.NURSE ---
received neg head ct from [facility]
[2020-07-02 04:48] VITALS: BP 119/67; PULSE 75; RESP 15; O2SAT 98
--- NOTE | 2020-07-02 04:48 | PC.NURSE ---
at bedside to suture wound
--- NOTE | 2020-07-02 05:05 | PC.NURSE ---
wound re-prepped per clinical education coordinator and hair removed.dtr remains at bedside
[2020-07-02 05:12] VITALS: BP 120/79; PULSE 63; RESP 16; O2SAT 95
--- NOTE | 2020-07-02 05:21 | HMH.EDFALL ---
ED Disposition Clinical Impression: Renal insufficiency, Obesity, Class III, BMI 40-49.9 (morbid obesity), Other secondary thrombocytopenia Fall Qualifiers: Encounter type: initial encounter Qualified Code(s): W19.XXXA - Unspecified fall, initial encounter Scalp laceration Qualifiers: Encounter type: initial encounter Qualified Code(s): S01.01XA - Laceration without foreign body of scalp, initial encounter Disposition: Home, Self-Care Condition on Discharge: Good Instructions: How to Prevent Falls Additional Instructions: suture out 10 -12 days and call pcp for follow up Referrals: Darren Dowd MD [Primary Care Provider] - - Critical Care Critical Care Time: No Attestation: On 07/02/20, the high probability of a clinically significant, sudden or life threatening deterioration of the following system(s) required my full and direct attention, intervention and personal management. The time I documented below is in addition to time spent performing reported procedures but includes the following listed in this critical care notation. Medical Decision Making - Medical Records Medical records reviewed: Yes: I reviewed the patient's medical records. - Samy Inquiry Pt receiving controlled substance: No Vital Signs: 07/02/20 03:22 07/02/20 04:22 07/02/20 04:48 Temperature 98.7 F Temperature Source Oral Pulse Rate [Left Radial] 76 61 75 Respiratory Rate 15 16 15 Blood Pressure [Right Arm] 109/57 L 135/74 119/67 Blood Pressure Mean [Right Arm] 74 94 84 Blood Pressure Source [Right Arm] Automatic Cuff Automatic Cuff Automatic Cuff Blood Pressure Position [Right Arm] Sitting Sitting Supine 02 Sat by Pulse Oximetry 98 92 L 98 Oxygen Delivery Method Room Air Room Air Room Air 07/02/20 05:12 Temperature Temperature Source Pulse Rate [Left Radial] 63 Respiratory Rate 16 Blood Pressure [Right Arm] 120/79 Blood Pressure Mean [Right Arm] 92 Blood Pressure Source [Right Arm] Automatic Cuff Blood Pressure Position [Right Arm] Sitting 02 Sat by Pulse Oximetry 95 Oxygen Delivery Method Room Air - Lab Data Lab results reviewed: Yes: I reviewed the patient's lab results. Lab Results 07/02/20 03:35: WBC 6.3, RBC 4.28 L, Hgb 13.6 L, Hct 41.6 L, MCV 97.2 H, MCH 31.7 H, MCHC 32.6, RDW 14.1, Plt Count 110 L, MPV 8.4, Neut % (Auto) 58.6, Lymph % (Auto) 28.3, [place] % (Auto) 6.8, Eos % (Auto) 5.5, Baso % (Auto) 0.7, Neut # (Auto) 3.7, Lymph # (Auto) 1.8, [place] # (Auto) 0.4, Eos # (Auto) 0.4, Baso # (Auto) 0.0 07/02/20 03:35: Sodium 139, Potassium 5.4 H, Chloride 102, Carbon Dioxide 28, Anion Gap 14.4, BUN 35 H, Creatinine 1.50 H, Estimated Creat Clear 41, Estimated GFR 46 L, Est GFR ( Amer) 55 L, Glucose 118 H, Calcium 9.7, Total Bilirubin 0.4, Direct Bilirubin 0.1, Conjugated Bilirubin 0.0, Indirect Bilirubin 0.3, Unconjugated Bilirubin 0.4, AST 50, ALT 41, Alkaline Phosphatase 127 H, Troponin I < 0.01, Total Protein 7.6, Albumin 4.5 07/02/20 03:35: SARS-CoV-2 IgG Ab (Rapid) Negative, SARS-CoV-2 IgM Ab (Rapid) Negative Result diagrams: 07/02/20 03:35 07/02/20 03:35 Orders (Tests/Meds): ED MEDICATIONS Generic Name Dose Route Start Last Admin Trade Name Freq PRN Reason Stop Dose Admin Sodium Chloride 1,000 mls @ 999 mls/hr 07/02/20 03:45 07/02/20 03:42 Sod Chlor 0.9% 1000ml Bag IV 07/02/20 04:45 999 mls/hr .Q1H1M MAGDI Administration ORDERS Category Date Time Status CT cervical spine wo con Stat Cat Scan 07/02/20 03:[address] head/brain wo con Stat Cat Scan 07/02/20 03:27 Taken Chest XR -- portable [XR chest portable] Stat Exams 07/02/20 03:27 Taken XR pelvis 1-2V Stat Exams 07/02/20 03:27 Taken Troponin I Q3H Lab 07/02/20 06:45 Ordered Troponin I Q3H Lab 07/02/20 09:45 Ordered - Radiology Data #1 Image(s): Chest, Pelvis Image Reviewed: Yes I reviewed the patient's radiology image Preliminary Findings: No Fracture Seen - CT Data CT Scan: Head, C-Spi
[2020-07-02 05:26] VITALS: BP 127/81; PULSE 64; RESP 16; TEMP 37.1; O2SAT 94
--- NOTE | 2020-07-02 05:30 | PC.NURSE ---
pt ambulated independently to the restroom. tolerated well
== END 2020-07-02 05:33 | disposition home or self-care (01) ==
PROVIDERS: Emergency Provider Emergency Medicine; PCP Family Medicine
DX: S01.01XA Laceration without foreign body of scalp, initial encounter (principal); N28.9 Disorder of kidney and ureter, unspecified; E66.01 Morbid (severe) obesity due to excess calories; D69.59 Other secondary thrombocytopenia; W01.190A Fall on same level from slipping, tripping and stumbling with subsequent striking against furniture, initial encounter; Y92.013 Bedroom of single-family (private) house as the place of occurrence of the external cause; K21.9 Gastro-esophageal reflux disease without esophagitis; E78.5 Hyperlipidemia, unspecified; Z01.84 Encounter for antibody response examination; Z87.891 Personal history of nicotine dependence
CPT/HCPCS: 12002; 70450; 71045; 72125; 72170; 80048; 80076; 84484; 85025; 86328; 93005; 99283

== ENCOUNTER → 2020-07-28 10:46 | Outpatient (POV) | payer MEDICARE, BC, SELFPAY ==
[2020-07-28 10:53] VITALS: BP 170/88; PULSE 72; RESP 20; TEMP 36.6; O2SAT 94; BMI 43.0
--- NOTE | 2020-07-28 10:59 | HMH.PAINSOAP ---
[facility] Pain Management SOAP Note Subjective:: Patient is a 74-year-old white male who presents today for follow-up. Patient is having some increased neck pain with radiation into his bilateral shoulders and arms. He is having numbness and tingling into his arms as well. He has undergone a cervical epidural steroid injection in the past for which he says he got about 80% relief for up to 3 to 4 weeks. He is also having some low back pain with radicular pain into his bilateral lower extremities as well. Patient does rate his pain a 3 out of 10 today. He says his pain is less with sitting and worsens with standing to both neck and low back. He has tried conservative therapies of physical therapy and home stretching in the past with little to no relief. He has also tried anti-inflammatories in the past. Patient says he would like to start with injections in his neck before proceeding to his low back. Review of Systems General: No recent weight changes, no fever, no sleep disturbances Respiratory: No cough, no shortness of air, no recurring pulmonary infections Cardiovascular/peripheral vascular: No chest pain, no palpitations, no edema, no shortness of breath Gastrointestinal: No new onset incontinence, normal bowel movements reported Genitourinary: No new onset incontinence Musculoskeletal: Neck pain worse radiating into bilateral shoulders and arms, low back pain with radiation into bilateral legs. Psychiatric: Normal mood/affect Neurological: [Denies weakness in extremities], [denies balance issues] Objective:: Physical exam General: Alert and oriented x3, no acute distress, pleasant and cooperative, [on room air] Lungs: Respirations even and unlabored, symmetrical chest expansion Eyes: PERRL Musculoskeletal: Flexion and extension of cervical and lumbar spine somewhat guarded secondary to pain, deep tendon reflexes normal, strength in upper and lower extremities [5/5], slightly antalgic gait noted Neurological: Speech clear, animal chiropractor equal, no gross sensory deficit Assessment:: Degenerative disc disease cervical and lumbar spine, cervical and lumbar radiculopathy symptoms Plan:: We will schedule patient for cervical epidural steroid injection at C6-C7. He has had the injections in the past and has gotten good relief with the injection. Following the cervical epidural steroid injection, the patient is getting relief with the injection we will then proceed to the lumbar spine. We will plan to see the patient back after his injection to reassess his symptoms. The patient is not on any anticoagulation therapy. Risks and benefits of the procedure have been explained to the patient. Patient would like to proceed with the procedure. The patient and I specifically discussed risk factors for COVID19. These risks include, but are not limited to age greater than 60, heart or lung disease, diabetes, immunosuppression, and travel. We also discussed NSAIDs may worsen COVID19 infection or symptoms. Patient should not use NSAIDs to treat COVID19 signs or symptoms. Patient was also informed that any type of corticosteroid of any form (oral or injection) will decrease the patient's immune system response and may increase the likelihood of COVID19 infection and symptoms. Patient has been instructed to contact clinic if he does she has any concerns before the next appointment. Dr. Chahal has reviewed this note and agrees with this plan of care. This note was dictated using voice recognition software and make contain errors or omissions. [facility] History I have reviewed the patient's past medical history: Yes Medical History: Reports:: BPH, Gastroesophageal Reflux Disease(GERD), Hyperlipidemia, MRSA Denies:: Cancer, Diabetes Mellitus Type 1, Diabetes Mellitus Type 2, Internal Pacemaker, Seizures *Have you ever received a pneumonia vaccine?: Yes *Have you received a flu vaccine this season?: Yes Other Medical History: Reports: Arthritis, Sickle Cell
== END ==
PROVIDERS: PCP Family Medicine; Visit Provider Clinical Nurse Specialist Family Health
DX: M50.10 Cervical disc disorder with radiculopathy, unspecified cervical region (principal)
CPT/HCPCS: 99212

== ENCOUNTER → 2020-08-08 12:07 | Outpatient (CLI) | payer MEDICARE, BC, SELFPAY ==
--- NOTE | 2020-08-08 12:14 | XR_ITS ---
PROCEDURE: XR FOOT WT BEARING RT 3V CLINICAL INDICATION: ulcer of right 3rd toe and right great hallux COMPARISON: No exams were available for comparison FINDINGS: No fracture or dislocation. No lytic or blastic change. There is normal mineralization. The joint spaces are well-preserved. Fibular metallic plate 2 threaded screws remain into the distal tibia the lower of 2 screws is fractured. There is slight flattening of the plantar arch. There are mild hammertoe deformities of all of the toes. There prominent enthesophytes at the insertion of Achilles tendon and plantar tendon. There are no definite soft tissue radiolucency is noted. IMPRESSION: No acute findings. Dictated by: Dr. Jim Choi MD 08/08/2020 13:33 Dr. Jim Choi MD in [place] 08/08/2020 13:33
[2020-08-08 12:46] LABS: Basophils % 0.7 % (0.1-2.0); Eosinophils # 0.4 K/mm3 (0.0-0.4); Eosinophils % 6.9 % (0.1-12.0); Hematocrit 41.5 % (42.0-52.0); Hemoglobin 13.5 g/dL (14.1-18.0); Lymphocytes # 1.6 K/mm3 (0.7-4.5); Lymphocytes % 31.1 % (10-50); Mean Corpuscular HGB Conc 32.5 g/dL (31.8-35.4); Mean Corpuscular Hemoglobin 31.8 pg (27.0-31.2); Mean Corpuscular Volume 97.9 fl (80-94); Monocytes # 0.3 K/mm3 (0.1-1.0); Monocytes % 5.9 % (1.7-9.3); Neutrophils # 2.9 K/mm3 (1.8-7.8); Neutrophils % 55.5 % (37.0-80.0); Platelet Count 110 K/mm3 (142-424); Red Blood Count 4.24 M/mm3 (4.60-6.20); Red Cell Distribution Width 14.2 % (11.5-17.5); White Blood Count 5.3 K/mm3 (4.8-10.8)
[2020-08-08 13:12] LABS: Chloride 105 mmol/L (98-107); Erythrocyte Sedimentation Rate 16 mm/hr (0-20)
[2020-08-08 13:13] LABS: Potassium 5.5 mmoL/L (3.5-5.1); Sodium 139 mmol/L (136-145)
[2020-08-08 13:16] LABS: Alanine Aminotransferase 36 U/L (12-78); Albumin Level 4.8 g/dl (3.5-5.0); Albumin/Globulin Ratio 1.5 (1.1-1.8); Alkaline Phosphatase 113 U/L (38-126); Anion Gap 12.5 mEq/L (5-15); Aspartate Amino Transferase 44 U/L (17-59); Bilirubin,Total 0.5 mg/dl (0.2-1.3); Blood Urea Nitrogen 36 mg/dl (9-20); Calcium 9.8 mg/dl (8.4-10.2); Carbon Dioxide 27 mmol/L (22.0-30.0); Estimated Glomerular Filt Rate 54 ml/min (>60); GFR (African American) 65 ML/MIN (>60); Globulin 3.2 g/dL (1.3-3.2); Glucose 110 mg/dl (74-100)
[2020-08-08 13:22] LABS: C-Reactive Protein 1.8 mg/L (0-4)
== END ==
PROVIDERS: PCP Family Medicine; Visit Provider Nurse Practitioner
DX: L97.511 Non-pressure chronic ulcer of other part of right foot limited to breakdown of skin (principal); L97.512 Non-pressure chronic ulcer of other part of right foot with fat layer exposed
CPT/HCPCS: 36415; 73630; 80053; 85025; 85651; 86140; 87070; 87077; 87186; 87205

== ENCOUNTER 2020-08-13 22:56 | Emergency (ER) | payer MEDICARE, BC, SELFPAY ==
[2020-08-13 23:05] VITALS: BP 143/72; PULSE 89; RESP 22; TEMP 36.6; O2SAT 96; BMI 44.6
--- NOTE | 2020-08-13 23:10 | XR_ITS ---
PROCEDURE: XR CHEST PORTABLE CLINICAL HISTORY: AMS COMPARISON: CR XR CHEST 2V from 05/25/2019 CR XR CHEST 2V from 07/13/2019 CR XR CHEST PORTABLE from 07/02/2020 FINDINGS: The patient is morbidly obese which degrades detail. The lung lindo appear fairly well expanded and there is no obvious pneumonic infiltrate seen. There is no definite pleural fluid. There is borderline cardiomegaly without definite pulmonary congestion. There is severe for advanced degenerate change right shoulder. IMPRESSION: Cardiomegaly, no definite acute cardiopulmonary disease seen Dictated by: Dr. Jim Choi MD 08/14/2020 09:34 Dr. Jim Choi MD in [place] 08/14/2020 09:34
--- NOTE | 2020-08-13 23:27 | HMH.EDGENADL ---
ED Disposition Clinical Impression: Hallucinations Disposition: Home, Self-Care Condition on Discharge: Good Additional Instructions: You were seen on an emergency basis. It is very important that you follow up with your primary care provider and/or specialist as we discussed within 2 days. All labs and imaging were obtained and interpreted here to rule out life threatening emergencies, but your final results should be reviewed by your primary doctor at your follow up appointment. Please return to the emergency department if any of your symptoms worsen, or if they do not improve as we discussed. Prescriptions: Quetiapine Fumarate [Seroquel 25mg tablet] 25 mg PO HS #20 tab Transmission Status: Pending to [facility] Referrals: Darren Dowd MD [Primary Care Provider] - - Critical Care Critical Care Time: No Attestation: On 08/13/20, the high probability of a clinically significant, sudden or life threatening deterioration of the following system(s) required my full and direct attention, intervention and personal management. The time I documented below is in addition to time spent performing reported procedures but includes the following listed in this critical care notation. Medical Decision Making - Medical Records Medical records reviewed: Yes: I reviewed the patient's medical records. - Samy Inquiry Pt receiving controlled substance: No Vital Signs: 08/13/20 23:05 Temperature 97.8 F Temperature Source Oral Pulse Rate [Right Brachial] 89 Respiratory Rate 22 Blood Pressure [Right Arm] 143/72 H Blood Pressure Mean [Right Arm] 95 Blood Pressure Source [Right Arm] Automatic Cuff Blood Pressure Position [Right Arm] Sitting 02 Sat by Pulse Oximetry 96 Oxygen Delivery Method Room Air - Lab Data Lab results reviewed: Yes: I reviewed the patient's lab results. Lab Results 08/13/20 23:29: Specimen Source R/r, O2 % R/a, ABG pH 7.39, ABG pCO2 33.4 L, ABG pO2 78.1 L, ABG HCO3 19.9 L, ABG Total CO2 20.9 L, ABG O2 Saturation 95, ABG Base Excess -5.1 L, Ashu Test Y 08/13/20 23:30: WBC 7.9, RBC 4.24 L, Hgb 13.6 L, Hct 40.9 L, MCV 96.4 H, MCH 32.2 H, MCHC 33.4, RDW 14.2, Plt Count 116 L, MPV 9.2, Neut % (Auto) 61.5, Lymph % (Auto) 27.2, [place] % (Auto) 6.1, Eos % (Auto) 4.7, Baso % (Auto) 0.6, Neut # (Auto) 4.9, Lymph # (Auto) 2.2, [place] # (Auto) 0.5, Eos # (Auto) 0.4, Baso # (Auto) 0.1 08/13/20 23:30: Sodium 138, Potassium 5.1, Chloride 102, Carbon Dioxide 26, Anion Gap 15.1 H, BUN 32 H, Creatinine 1.40 H, Estimated Creat Clear 47, Estimated GFR 49 L, Est GFR ( Amer) 60, Glucose 120 H, Calcium 9.8, Total Bilirubin 0.6, AST 50, ALT 37, Alkaline Phosphatase 119, Troponin I 0.02, Total Protein 8.5 H, Albumin 4.8, Globulin 3.7 H, Albumin/Globulin Ratio 1.3 08/14/20 00:10: Urine Color Yellow, Urine Appearance Clear, Urine pH 5.5, Ur Specific [place] >= 1.030, Urine Protein Negative, Urine Glucose (UA) Negative, Urine Ketones Negative, Urine Blood Negative, Urine Nitrate Negative, Urine Bilirubin Negative, Urine Urobilinogen 0.2, Ur Leukocyte Esterase Negative, Amorphous Sediment Trace Result diagrams: 08/13/20 23:30 08/13/20 23:30 Orders (Tests/Meds): ORDERS Category Date Time Status XR chest portable Stat Exams 08/13/20 23:10 Taken Troponin I Q3H Lab 08/14/20 02:15 Ordered Troponin I Q3H Lab 08/14/20 05:15 Ordered ABG [Arterial Blood Gas] Stat RT 08/13/20 23:10 Ordered Medical Decision Narrative: 74-year-old male with Parkinson's disease presenting with hallucinations and insomnia after discontinuing Seroquel. Nontoxic, afebrile, hemodynamically stable, nonfocal, neuro intact, asymptomatic on arrival. Chest x-ray negative for acute disease. Urinalysis negative for infection. CBC and CMP are nonactionable. Symptoms are likely attributable to Seroquel discontinuation. No hallucinations here. I spoke to the admitting physician who discussed the case with me and recommended discharge
[2020-08-13 23:31] LABS: ABG Base Excess -5.1 mmol/L (-2.4-2.3); ABG HCO3 19.9 mmhg (22.0-26.0); ABG Oxygen Saturation 95 % (90-100); ABG PCO2 33.4 mmhg (35.0-45.0); ABG PH 7.39 mmol/L (7.35-7.45); ABG PO2 78.1 mmhg (80-100); ABG TCO2 20.9 mmhg (23-27); Allen's Test Y; Oxygen R/A %; Source R/R
[2020-08-13 23:40] LABS: Basophils # 0.1 K/mm3 (0-0.2); Basophils % 0.6 % (0.1-2.0); Eosinophils # 0.4 K/mm3 (0.0-0.4); Eosinophils % 4.7 % (0.1-12.0); Hematocrit 40.9 % (42.0-52.0); Hemoglobin 13.6 g/dL (14.1-18.0); Lymphocytes # 2.2 K/mm3 (0.7-4.5); Lymphocytes % 27.2 % (10-50); Mean Corpuscular HGB Conc 33.4 g/dL (31.8-35.4); Mean Corpuscular Hemoglobin 32.2 pg (27.0-31.2); Mean Corpuscular Volume 96.4 fl (80-94); Mean Platelet Volume 9.2 fl (7.4-10.4); Monocytes # 0.5 K/mm3 (0.1-1.0); Monocytes % 6.1 % (1.7-9.3); Neutrophils # 4.9 K/mm3 (1.8-7.8); Neutrophils % 61.5 % (37.0-80.0); Platelet Count 116 K/mm3 (142-424); Red Blood Count 4.24 M/mm3 (4.60-6.20); Red Cell Distribution Width 14.2 % (11.5-17.5); White Blood Count 7.9 K/mm3 (4.8-10.8)
[2020-08-13 23:49] LABS: Alanine Aminotransferase 37 U/L (12-78); Albumin Level 4.8 g/dl (3.5-5.0); Albumin/Globulin Ratio 1.3 (1.1-1.8); Alkaline Phosphatase 119 U/L (38-126); Anion Gap 15.1 mEq/L (5-15); Aspartate Amino Transferase 50 U/L (17-59); Bilirubin,Total 0.6 mg/dl (0.2-1.3); Blood Urea Nitrogen 32 mg/dl (9-20); Calcium 9.8 mg/dl (8.4-10.2); Carbon Dioxide 26 mmol/L (22.0-30.0); Chloride 102 mmol/L (98-107); Creatinine Clearance Estimated 47 mL/min (50-200); Estimated Glomerular Filt Rate 49 ml/min (>60); GFR (African American) 60 ML/MIN (>60); Globulin 3.7 g/dL (1.3-3.2); Glucose 120 mg/dl (74-100); Potassium 5.1 mmoL/L (3.5-5.1); Sodium 138 mmol/L (136-145); Total Protein,Serum 8.5 g/dl (6.3-8.2)
[2020-08-14 00:04] LABS: Troponin I 0.02 ng/ml (0.00-0.034)
--- NOTE | 2020-08-14 00:17 | PC.NURSE ---
PT AMUBLATED APPROXIMATELY 30 FEET TO AND FROM BATHROOM WITH AT STANDBY ASSIST. URINE OBTAINED AND GIVEN TO LAB FOR TESTING
[2020-08-14 00:19] LABS: Microscopic, Urine URINE MICROSCOPIC (MICROSCOPIC)
[2020-08-14 00:23] LABS: Appearance,Urine CLEAR (Clear); Bilirubin,Urine Negative (Negative); Blood, Urine Negative (Negative); Color,Urine YELLOW (Yellow); Glucose,Urine (UA) Negative (Negative); Ketones,Urine Negative (Negative); Leukocyte Esterase,Urine Negative (Negative); Nitrate,Urine Negative (Negative); PH,Urine 5.5 (5.0-8.5); Protein,Urine Negative (Negative); Specific Gravity, Urine >= 1.030 (1.005-1.030); Urobilinogen,Urine 0.2 EU/dl (0.2)
[2020-08-14 00:24] LABS: Amorphous Sediment,Urine Trace /lpf
--- NOTE | 2020-08-14 00:59 | PC.NURSE ---
Jovany speaking to MD Boris at this time
[2020-08-14 02:11] VITALS: BP 139/71; PULSE 85; RESP 20; TEMP 36.6; O2SAT 96
== END 2020-08-14 02:14 | disposition home or self-care (01) ==
PROVIDERS: Emergency Provider Physician Assistant; PCP Family Medicine
DX: R44.3 Hallucinations, unspecified (principal); G20 Parkinson's disease; K21.9 Gastro-esophageal reflux disease without esophagitis; E78.5 Hyperlipidemia, unspecified; N40.0 Benign prostatic hyperplasia without lower urinary tract symptoms; Z87.891 Personal history of nicotine dependence
CPT/HCPCS: 71045; 80053; 81001; 82803; 84484; 85025; 93005; 99283